=== PATIENT | female | born 1995 | race American Indian/Alaskan Native ===

== ENCOUNTER 2022-01-06 21:10 | Emergency (ER) | payer MEDICAID, SELFPAY ==
[2022-01-06 22:23] VITALS: BP 114/70; PULSE 64; RESP 16; TEMP 36.3; O2SAT 100; BMI 28.5
[2022-01-06 23:35] VITALS: BP 104/57; PULSE 62; RESP 16; O2SAT 97
--- NOTE | 2022-01-06 23:41 | ED.HA ---
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 Mode of arrival: ambulatory Limitations: no limitations History of Present Illness MD elicited complaint: headache and other (bleeding when she wipes) Onset (ago): day(s) (5) Onset description: gradually and while at rest Location: temporal, generalized and band-like Severity: mild Quality & Timing: aching and progressively worsening Exacerbating factors: none Relieving factors: nothing Context: occurred at rest Associated symptoms: other (also notes after urination - urinating more she sees blood on tissue, she is s/p BTL in [place]) Treatments prior to arrival: acetaminophen Related Data Previous Rx's Medication Instructions Recorded ibuprofen 600 mg tablet 600 mg PO Q6H PRN pain #30 tabs 01/07/22 nitrofurantoin 100 mg PO BID 7 days #14 caps 01/07/22 monohydrate/macrocrystals 100 mg capsule (Macrobid) Allergies Allergy/AdvReac Type Severity Reaction Status Date / Time No Known Allergies Allergy Verified 01/06/22 23:41 Review of Systems Review of Systems: Constitutional : No Fever, No Chills, No Fatigue ENT/Mouth : No sore throat, No Rhinorrhea Eyes: No Eye Pain, No Swelling, No Redness Cardiovascular : No Chest Pain, No SOB, No Dyspnea on Exertion Respiratory : No Cough, No Sputum Gastrointestinal : No Nausea, No Vomiting, No Diarrhea, No abdominal Pain Genitourinary : No Dysuria, pos Urinary Frequency, No Hematuria, Musculoskeletal : No joint pain, No Myalgias, No Joint Swelling Skin : No Skin Lesions, No rash Neuro : No Weakness, No Numbness, No Dizziness, positive Headache Psych : No Anxiety/Panic, No Depression Heme/Lymph: No Bruising, No Bleeding,No Lymphadenopathy Endocrine : No Polyuria, No Polydipsia All other systems reviewed and are negative [facility], [facility] Past Medical History Attestation statement: The following information was validated with the patient. Medical History Anemia Surgical History History of tubal ligation Social History Social History (Updated 01/06/22 @ 23:52 by Corry Gilmore DO) Patient Tobacco Use Status: Never used Tobacco Advance Directives: No Patient : No Physical Exam Vital Signs: Vital Signs: Last Vital Signs Temp 97.4 F 01/06/22 22:23 Pulse 62 01/06/22 23:35 Resp 16 01/06/22 23:35 BP 104/57 L 01/06/22 23:35 Pulse Ox 97 01/06/22 23:35 O2 Del Method 01/06/22 23:35 BMI result Body Mass Index 28.5 Appearance: Alert. Oriented X3. No acute distress. Eyes: Pupils equal, round and reactive to light. ENT: Pharynx normal. Neck: Normal inspection. Neck supple. full ROM CVS: Normal heart rate and rhythm. Pulses normal. Respiratory: No respiratory distress. Breath sounds normal. Abdomen: Soft and nontender. Skin: Skin warm and dry. Normal skin color. Normal skin turgor. Extremities: No lower extremity edema. No calf ttp Neuro: Oriented X 3. No motor deficit. No sensory deficit. Course Course Course Narrative: not will start on macrobid to see if this helps her urine - she has no bleeding only with wiping MDM - Headache MDM Narrative Medical decision making narrative: 26 yo female with hx of anemia, s/p tubal ligation here with c/o mild gradual onset headaches x 5 days not responding to tylenol. 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 The patient is also c/o blood when she wipes and has been peeing more frequently will obtain quant and UA sample for vs UTI, she is s/p BTL. Lab Data Result diagrams: 01/07/22 00:44 01/07/22 00:44 Labs: Lab Results 01/07/22 01/07/22 01/07/22 Range/Units 00:44 00:44 01:24 WBC 8.1 (4.8-10.8) X10*3/uL RBC 3.90 L (4.20-5.50) X10*6/uL Hgb 11.2 L (12.0-16.0) g/dl Hct 34.4 L (37.0-47.0) % MCV 88.2 (80.0-98.0) fL MCH 28.7 (27.0-33.0) pg MCHC 32.6 (31.0-35.0) g/dl RDW 13.3 (11.0-16.0) % Plt Count 242 (160-400) X10*3/uL MPV 10.3 (9.4-12.3) fL Immature Gran % (Auto) 0.5 H (0.0-0.4) % Neut % (Auto) 49.1 (45-73) % Lymph % (Auto) 40.9 H (20-40) % [place] % (Auto) 7.7 (2-11) % Eos % (Auto) 1.4 (0-4) % Baso % (Auto) 0.4 (0-2) % Lymph # (Auto) 3.3 (1.2-4.9) X10*3/uL [place] # (Auto) 0.6 (0.1-1.2) X10*3/uL Eos # (Auto) 0.1 (0.0-0.4) X10*3/uL Baso # (Auto) 0.0 (0.0-0.2) X10*3/uL Abs Immat Gran (auto) 0.04 H (0.00-0.03) X10*3/uL Absolute Neuts (auto) 4.0 (2.0-8.3) x10*3/uL Absolute Nucleated RBC 0.000 (0.0-0.012) X10*3/uL Nucleated RBC % (auto) 0.0 (0.0-0.2) /100WBC Sodium 142 (135-145) mmol/L Potassium 4.2 (3.3-5.1) mmol/L Chloride 105 (96-108) mmol/L Carbon Dioxide 26 (22-29) mmol/L Anion Gap 15 (12-20) BUN 18 H (9-16) mg/dL Creatinine 0.78 (0.5-1.4) mg/dL Estim Creat Clear Calc 98.9 Estimated GFR > 60 Random Glucose 102 (60-115) mg/dL Calcium 9.3 (8.4-10.2) mg/dL Beta HCG, Quant < 2 mIU/mL Urine Color Yellow Urine Appearance Clear Urine pH 5.5 (5.0-8.0) Ur Specific [place] 1.025 (1.005-1.025) Urine Protein Negative (Neg-Trace) mg/dL Urine Glucose (UA) Negative (Negative) mg/dL Urine Ketones Negative (Negative) mg/dL Urine Blood Large (3+) H (Negative) Urine Nitrite Negative (Negative) Ur Leukocyte Esterase Negative (Negative) Urine RBC 0-2 (0-2) /HPF Urine WBC 0-5 (0-5) /HPF Ur Squamous Epith Cells 11-20 (0-2) /HPF Urine Bacteria 2+ (None Seen) Hyaline Casts 0-2 (0-2) /LPF Discharge Plan Discharge Clinical Impression: Tension headache, Cystitis Instructions: Urinary Tract Infection in Women (ED), Acute Headache (ED) Additional Instructions: return to ED for any worsening symptoms or concerns Prescriptions: New ibuprofen 600 mg tablet 600 mg PO Q6H PRN (Reason: pain) Qty: 30 0RF nitrofurantoin monohyd/m-cryst [Macrobid] 100 mg capsule 100 mg PO BID 7 Days Qty: 14 0RF Rx Instructions: must administer with a meal/food Stand Alone Forms: Work/School Release Print Language: St Helen[place]
[2022-01-07 00:47] LABS: MANUAL DIFF FLAG NO
[2022-01-07 00:51] LABS: Basophils Percent Auto 0.4 % (0-2); Eosinophils Absolute Auto 0.1 X10*3/uL (0.0-0.4); Eosinophils Percent Auto 1.4 % (0-4); Hematocrit 34.4 % (37.0-47.0); Hemoglobin 11.2 g/dl (12.0-16.0); Imm Gran Abs Auto 0.04 X10*3/uL (0.00-0.03); Imm Gran Pct Auto 0.5 % (0.0-0.4); Lymphocytes Absolute Auto 3.3 X10*3/uL (1.2-4.9); Lymphocytes Percent Auto 40.9 % (20-40); Mean Corpuscular HGB Conc 32.6 g/dl (31.0-35.0); Mean Corpuscular Hemoglobin 28.7 pg (27.0-33.0); Mean Corpuscular Volume 88.2 fL (80.0-98.0); Mean Platelet Volume 10.3 fL (9.4-12.3); Monocytes Absolute Auto 0.6 X10*3/uL (0.1-1.2); Monocytes Percent Auto 7.7 % (2-11); Neutrophils Percent Auto 49.1 % (45-73); Platelet Count 242 X10*3/uL (160-400); Red Cell Distribution Width 13.3 % (11.0-16.0); White Blood Count 8.1 X10*3/uL (4.8-10.8)
[2022-01-07 01:07] LABS: Anion Gap 15 (12-20); Blood Urea Nitrogen 18 mg/dL (9-16); Calcium 9.3 mg/dL (8.4-10.2); Carbon Dioxide 26 mmol/L (22-29); Chloride 105 mmol/L (96-108); Creatinine Clr Calc Pharmacy 98.9; Estimated Glomerular Filt Rate > 60; Glucose Random 102 mg/dL (60-115); Potassium 4.2 mmol/L (3.3-5.1); Sodium 142 mmol/L (135-145)
[2022-01-07 01:15] LABS: HCG Quantitative < 2 mIU/mL
[2022-01-07 01:32] LABS: Appearance Urine Clear; Color Urine Yellow; Glucose Urine UA Negative (Negative); Leukocyte Esterase Urine Negative (Negative); Nitrite Urine Negative (Negative); PH 5.5 (5.0-8.0); Specific Gravity - Urine 1.025 (1.005-1.025); Urine Blood Large (3+) (Negative); Urine Ketones Negative (Negative); Urine Protein Negative (Neg-Trace)
[2022-01-07 01:42] LABS: Bacteria Urine 2+ (None Seen); Hyaline Casts Urine 0-2 /LPF (0-2); RBC Urine 0-2 /HPF (0-2); WBC Urine 0-5 /HPF (0-5)
[2022-01-07] MEDS: Ketorolac Tromethamine 30 MG/ML VIAL IM (01:42)
--- NOTE | 2022-01-07 01:43 | PC.NURSE ---
pt a&ox3, vss, medicated per provider order. no new orders at this time.
== END 2022-01-07 02:05 | disposition home or self-care (01) ==
PROVIDERS: Emergency Provider Emergency Medicine
DX: N30.90 Cystitis, unspecified without hematuria (principal); R51.9 Headache, unspecified; Z79.899 Other long term (current) drug therapy
CPT/HCPCS: 36415; 80048; 81001; 84702; 85025; 96372; 99284; J1885

== ENCOUNTER 2022-06-12 01:40 | Emergency (ER) | payer MEDICAID, SELFPAY ==
[2022-06-12 01:49] VITALS: BP 119/77; PULSE 117; RESP 20; TEMP 36.7; O2SAT 99; BMI 29.6
[2022-06-12 02:24] LABS: Basophils Percent Auto 0.2 % (0-2); Eosinophils Percent Auto 0.1 % (0-4); Hematocrit 35.6 % (37.0-47.0); Hemoglobin 11.8 g/dl (12.0-16.0); Imm Gran Abs Auto 0.06 X10*3/uL (0.00-0.03); Imm Gran Pct Auto 0.4 % (0.0-0.4); Lymphocytes Absolute Auto 0.4 X10*3/uL (1.2-4.9); Lymphocytes Percent Auto 2.9 % (20-40); MANUAL DIFF FLAG SCAN; Mean Corpuscular HGB Conc 33.1 g/dl (31.0-35.0); Mean Corpuscular Hemoglobin 28.7 pg (27.0-33.0); Mean Corpuscular Volume 86.6 fL (80.0-98.0); Mean Platelet Volume 9.7 fL (9.4-12.3); Monocytes Absolute Auto 0.4 X10*3/uL (0.1-1.2); Monocytes Percent Auto 2.5 % (2-11); Neutrophils Absolute Auto 13.4 x10*3/uL (2.0-8.3); Neutrophils Percent Auto 93.9 % (45-73); Platelet Count 300 X10*3/uL (160-400); Red Blood Count 4.11 X10*6/uL (4.20-5.50); Red Cell Distribution Width 12.7 % (11.0-16.0); SCAN SMEAR FLAG 1; White Blood Count 14.3 X10*3/uL (4.8-10.8)
[2022-06-12 02:25] LABS: Appearance Urine Clear; Color Urine Yellow; Glucose Urine UA Negative (Negative); Leukocyte Esterase Urine Negative (Negative); Nitrite Urine Negative (Negative); PH 8.5 (5.0-9.0); Specific Gravity - Urine >= 1.030 (1.005-1.025); UMIC TRIGGER UACC YES; Urine Blood Trace (Negative); Urine Ketones Negative (Negative); Urine Protein Trace mg/dL (Neg-Trace)
[2022-06-12 02:26] LABS: SLIDE REVIEW VERIFIED
[2022-06-12 02:27] LABS: UPreg QC Valid YES; Urine Pregnancy NEGATIVE (NEGATIVE)
[2022-06-12 02:30] LABS: Bacteria Urine None Seen (None Seen); Hyaline Casts Urine 0-2 /LPF (0-2); WBC Urine 0-5 /HPF (0-5)
[2022-06-12 02:40] LABS: Anion Gap 16 (12-20); Blood Urea Nitrogen 18 mg/dL (9-16); Calcium 9.2 mg/dL (8.4-10.2); Carbon Dioxide 21 mmol/L (22-29); Chloride 106 mmol/L (96-108); Creatinine Clr Calc Pharmacy 89.5; Estimated Glomerular Filt Rate > 60; Glucose Random 130 mg/dL (60-115); Potassium 4.1 mmol/L (3.3-5.1); Sodium 139 mmol/L (135-145)
[2022-06-12 03:06] LABS: Influenza A PCR NEGATIVE (Negative); Influenza B PCR NEGATIVE (Negative); Resp Syncy Virus RNA Qual PCR NEGATIVE (Negative); SARS COV2 PCR INHOUSE NEGATIVE (Negative)
[2022-06-12 03:09] VITALS: BP 112/70; PULSE 108; RESP 18; TEMP 37.4; O2SAT 97
[2022-06-12 04:16] VITALS: BP 115/72; PULSE 102; RESP 18; TEMP 37.4; O2SAT 96
--- NOTE | 2022-06-12 04:39 | ED_ITS ---
HPI - General Adult General Chief complaint: General Medical Stated complaint: N/V/D Time Seen by Provider: 06/12/22 04:09 Source: patient Mode of arrival: ambulatory Limitations: no limitations History of Present Illness HPI narrative: Patient been having nausea/vomiting/diarrhea since 20:00 last night with diffuse abdominal cramping clear vomiting over about 20 times same number of diarrhea no fever no chills no other family member sick denies any recent travel or sea food intake no fever or chills Related Data Previous Rx's Medication Instructions Recorded ibuprofen 600 mg tablet 600 mg PO Q6H PRN pain #30 tabs 01/07/22 nitrofurantoin 100 mg PO BID 7 days #14 caps 01/07/22 monohydrate/macrocrystals 100 mg capsule (Macrobid) loperamide 2 mg tablet (Imodium 2 mg PO Q6H PRN loose stool #10 06/12/22 A-D) tabs ondansetron 4 mg disintegrating 4 mg PO Q6-8H PRN nausea and 06/12/22 tablet vomiting #7 tabs Allergies Allergy/AdvReac Type Severity Reaction Status Date / Time No Known Allergies Allergy Verified 01/06/22 23:41 Review of Systems 2 Review of Systems: Yes all other systems are reviewed and are negative PMFSH Past Medical History Medical History Anemia Surgical History History of tubal ligation Social History Social History Alcohol intake: never Patient Tobacco Use Status: Never used Tobacco Smoked in Last 30 Days: No Use of substances other than those prescribed or required for medical reasons: No Advance Directives: No Advance Directives Information Provided: Yes Patient : No Physical Exam ED Vital Signs: Vital Signs - 24 hr 06/12/22 01:49 06/12/22 03:09 06/12/22 04:16 Temperature 98.1 F 99.4 F 99.3 F Pulse Rate 117 H 108 H 102 H Respiratory Rate 20 18 18 Blood Pressure 119/77 112/70 115/72 Pulse Oximetry 99 97 96 Oxygen Delivery Method Room Air Room Air Room Air 06/12/22 06:14 Temperature 98.7 F Pulse Rate 102 H Respiratory Rate 18 Blood Pressure 103/57 L Pulse Oximetry 99 Oxygen Delivery Method Room Air BMI result Body Mass Index 29.6 Appearance: Alert. Oriented X3. No acute distress. Eyes: No pallor or icterus ENT: Pharynx normal. Oral Mucosa moist Neck: Normal inspection. Neck supple. CVS: Normal heart rate and rhythm. Pulses normal. Respiratory: No respiratory distress. Equal air entry bilateral, no wheezing/rales/rhonchi Abdomen: Soft , diffuse tenderness no rebound tenderness or guarding Bowel sounds are present, no mass palpable, no CVA tenderness Skin: Skin warm and dry. Normal skin color. Normal skin turgor. Extremities: No lower extremity edema. No calf tenderness Neuro: Oriented X 3. No motor deficit. Medications Administered Discontinued Medications Generic Name Dose Route Start Last Admin Trade Name Freq PRN Reason Stop Dose Admin Sodium Chloride 1,000 mls @ 999 mls/hr 06/12/22 04:55 06/12/22 05:16 Ns IV 06/12/22 05:55 999 mls/hr .Q1H1M ONE Administration Sodium Chloride 1,000 mls @ 999 mls/hr 06/12/22 04:56 06/12/22 05:16 Ns IV 06/12/22 05:56 999 mls/hr .Q1H1M ONE Administration Ketorolac Tromethamine 30 mg 06/12/22 04:55 06/12/22 05:16 Ketorolac Tromethamine 30 Mg/Ml Vial IVPUSH 06/12/22 04:56 30 mg ONCE ONE Administration Loperamide HCl 2 mg 06/12/22 04:55 06/12/22 05:15 Loperamide Hcl 2 Mg Capsule PO 06/12/22 04:56 2 mg ONCE ONE Administration Ondansetron HCl 4 mg 06/12/22 04:55 06/12/22 05:16 Ondansetron Hcl 4 Mg/2 Ml Vial IVPUSH 06/12/22 04:56 4 mg ONCE ONE Administration Medical Decision Making Medical Decision Making [facility] Narrative: Patient with acute gastroenteritis likely viral will give IV fluids symptomatic treatment abdomen without any focal tenderness. Lab Data [facility] Lab Attestation statement: I reviewed the patient's lab results. 06/12/22 02:16 06/12/22 02:16 Labs: Lab Results 01/06/12/22 06/12/22 Range/Units 02:14 02:14 02:14 WBC (4.8-10.8) X10*3/uL RBC (4.20-5.50) X10*6/uL Hgb (12.0-16.0) g/dl Hct (37.0-47.0) % MCV (80.0-98.0) fL MCH (27.0-33.0) pg MCHC (31.0-35.0) g/dl RDW (11.0-16.0) % Plt Count (160-400) X10*3/uL MPV (9.4-12.3) fL Immature Gran % (Auto) (0.0-0.4) % Neut % (Auto) (45-73) % Lymph % (Auto) (20-40) % [place] % (Auto) (2-11) % Eos % (Auto) (0-4) % Baso % (Auto) (0-2) % Lymph # (Auto) (1.2-4.9) X10*3/uL [place] # (Auto) (0.1-1.2) X10*3/uL Eos # (Auto) (0.0-0.4) X10*3/uL Baso # (Auto) (0.0-0.2) X10*3/uL Abs Immat Gran (auto) (0.00-0.03) X10*3/uL Absolute Neuts (auto) (2.0-8.3) x10*3/uL Absolute Nucleated RBC (0.0-0.012) X10*3/uL Nucleated RBC % (auto) (0.0-0.2) /100WBC Smear Tech's Comments Sodium (135-145) mmol/L Potassium (3.3-5.1) mmol/L Chloride (96-108) mmol/L Carbon Dioxide (22-29) mmol/L Anion Gap (12-20) BUN (9-16) mg/dL Creatinine (0.5-1.4) mg/dL Estim Creat Clear Calc Estimated GFR Random Glucose (60-115) mg/dL Calcium (8.4-10.2) mg/dL Urine Color Yellow Urine Appearance Clear Urine pH 8.5 (5.0-9.0) Ur Specific [place] >= 1.030 H (1.005-1.025) Urine Protein Trace (Neg-Trace) mg/dL Urine Glucose (UA) Negative (Negative) mg/dL Urine Ketones Negative (Negative) mg/dL Urine Blood Trace H (Negative) Urine Nitrite Negative (Negative) Ur Leukocyte Esterase Negative (Negative) Urine RBC 6-10 H (0-2) /HPF Urine WBC 0-5 (0-5) /HPF Ur Squamous Epith Cells 3-5 (0-2) /HPF Urine Bacteria None Seen (None Seen) Hyaline Casts 0-2 (0-2) /LPF Urine Test NEGATIVE (NEGATIVE) Influenza Type A (PCR) NEGATIVE (Negative) Influenza Type B (PCR) NEGATIVE (Negative) RSV RNA Qual (PCR) NEGATIVE (Negative) SARS-CoV-2 RNA (RT-PCR) NEGATIVE (Negative) 06/12/22 06/12/22 Range/Units 02:16 02:16 WBC 14.3 H (4.8-10.8) X10*3/uL RBC 4.11 L (4.20-5.50) X10*6/uL Hgb 11.8 L (12.0-16.0) g/dl Hct 35.6 L (37.0-47.0) % MCV 86.6 (80.0-98.0) fL MCH 28.7 (27.0-33.0) pg MCHC 33.1 (31.0-35.0) g/dl RDW 12.7 (11.0-16.0) % Plt Count 300 (160-400) X10*3/uL MPV 9.7 (9.4-12.3) fL Immature Gran % (Auto) 0.4 (0.0-0.4) % Neut % (Auto) 93.9 H (45-73) % Lymph % (Auto) 2.9 L (20-40) % [place] % (Auto) 2.5 (2-11) % Eos % (Auto) 0.1 (0-4) % Baso % (Auto) 0.2 (0-2) % Lymph # (Auto) 0.4 L (1.2-4.9) X10*3/uL [place] # (Auto) 0.4 (0.1-1.2) X10*3/uL Eos # (Auto) 0.0 (0.0-0.4) X10*3/uL Baso # (Auto) 0.0 (0.0-0.2) X10*3/uL Abs Immat Gran (auto) 0.06 H (0.00-0.03) X10*3/uL Absolute Neuts (auto) 13.4 H (2.0-8.3) x10*3/uL Absolute Nucleated RBC 0.000 (0.0-0.012) X10*3/uL Nucleated RBC % (auto) 0.0 (0.0-0.2) /100WBC Smear Tech's Comments VERIFIED Sodium 139 (135-145) mmol/L Potassium 4.1 (3.3-5.1) mmol/L Chloride 106 (96-108) mmol/L Carbon Dioxide 21 L (22-29) mmol/L Anion Gap 16 (12-20) BUN 18 H (9-16) mg/dL Creatinine 0.87 (0.5-1.4) mg/dL Estim Creat Clear Calc 89.5 Estimated GFR > 60 Random Glucose 130 H (60-115) mg/dL Calcium 9.2 (8.4-10.2) mg/dL Urine Color Urine Appearance Urine pH (5.0-9.0) Ur Specific [place] (1.005-1.025) Urine Protein (Neg-Trace) mg/dL Urine Glucose (UA) (Negative) mg/dL Urine Ketones (Negative) mg/dL Urine Blood (Negative) Urine Nitrite (Negative) Ur Leukocyte Esterase (Negative) Urine RBC (0-2) /HPF Urine WBC (0-5) /HPF Ur Squamous Epith Cells (0-2) /HPF Urine Bacteria (None Seen) Hyaline Casts (0-2) /LPF Urine Test (NEGATIVE) Influenza Type A (PCR) (Negative) Influenza Type B (PCR) (Negative) RSV RNA Qual (PCR) (Negative) SARS-CoV-2 RNA (RT-PCR) (Negative) Discharge Plan Discharge Clinical Impression: Acute gastroenteritis Patient Disposition: Home, Self-Care Instructions: Gastroenteritis (ED) Additional Instructions: Drink plenty of fluids Zofran for nausea as prescribed Imodium for severe diarrhea Report to the ER/with a PA of not better Beber mucho l?quido Zofran para las n?useas seg?n lo prescrito Imodium para la diarrea severa Informar a urgencias/con PA de no mejor Prescriptions: New ondansetron 4 mg tablet,disintegrating 4 mg PO Q6-8H PRN (Reason: nausea and vomiting) Qty: 7 0RF loperamide [Imodium A-D] 2 mg tablet 2 mg PO Q6H PRN (Reason: loose stool) Qty: 10 0RF No Action ibuprofen 600 mg tablet 600 mg PO Q6H PRN (Reason: pain) Qty: 30 0RF nitrofurantoin monohyd/m-cryst [Macrobid] 100 mg capsule 100 mg PO BID 7 Days Qty: 14 0RF Rx Instructions: must administer with a meal/food Stand Alone Forms: Work/School Release Print Language: Malagasy
[2022-06-12] MEDS: Loperamide HCl 2 MG CAPSULE PO (05:15)
[2022-06-12] MEDS: 0.9 % Sodium Chloride 1,000 ML 999 ML IV ×2 (05:16)
[2022-06-12] MEDS: ondansetron HCL 4 MG/2 ML VIAL IVPUSH (05:16)
[2022-06-12] MEDS: Ketorolac Tromethamine 30 MG/ML VIAL IVPUSH (05:16)
--- NOTE | 2022-06-12 05:29 | PC.NURSE ---
Pt BARBA x 4. Pt was medicated per mar. Will continue to monitor.
[2022-06-12 06:14] VITALS: BP 103/57; PULSE 102; RESP 18; TEMP 37.1; O2SAT 99
== END 2022-06-12 06:49 | disposition home or self-care (01) ==
PROVIDERS: Emergency Provider Internal Medicine
DX: K52.9 Noninfective gastroenteritis and colitis, unspecified (principal); R11.2 Nausea with vomiting, unspecified; Z20.822 Contact with and (suspected) exposure to COVID-19; Z20.828 Contact with and (suspected) exposure to other viral communicable diseases
CPT/HCPCS: 0241U; 36415; 80048; 81001; 81025; 85025; 96361; 96374; 96375; 99284; J1885; J2405

== ENCOUNTER 2022-06-26 08:05 | Emergency (ER) | payer OTHER, MEDICAID, SELFPAY ==
[2022-06-26 08:09] VITALS: BP 140/90; PULSE 73; RESP 18; TEMP 36.2; O2SAT 100; BMI 18.3
--- NOTE | 2022-06-26 08:20 | ED.WOUNDLAC ---
HPI - Wound/Laceration General Chief Complaint: Wound/Laceration Stated Complaint: finger inj work inj Time Seen by Provider: 06/26/22 08:19 Source: patient Mode of arrival: ambulatory History of Present Illness HPI narrative: 27-year-old female with past medical history of anemia presenting to ED complaining of laceration to left index finger s/p cutting bread at work [employer]. Last tetanus unknown. Reports associated numbness/paresthesias. Denies injury to other area, crush injury, fever/chills. Onset (ago): minute(s) Related Data Previous Rx's Medication Instructions Recorded ibuprofen 600 mg tablet 600 mg PO Q6H PRN pain #30 tabs 01/07/22 nitrofurantoin 100 mg PO BID 7 days #14 caps 01/07/22 monohydrate/macrocrystals 100 mg capsule (Macrobid) loperamide 2 mg tablet (Imodium 2 mg PO Q6H PRN loose stool #10 06/12/22 A-D) tabs ondansetron 4 mg disintegrating 4 mg PO Q6-8H PRN nausea and 06/12/22 tablet vomiting #7 tabs Allergies Allergy/AdvReac Type Severity Reaction Status Date / Time No Known Allergies Allergy Verified 01/06/22 23:41 Review of Systems Review of Systems: Constitutional: No Fever, No Chills ENT/Mouth: No Ear Pain, No Nasal Congestion, No sore throat, No Rhinorrhea, No Swallowing Difficulty Cardiovascular: No Chest Pain, No SOB Respiratory: No Cough Gastrointestinal: No Nausea, No Vomiting, No Diarrhea, No Constipation, No Abdominal pain Musculoskeletal: No joint pain, No Myalgias, No Joint Swelling Skin: + Skin Lesions, No rash Neuro: No Weakness, No Numbness, + Paresthesias Yes all other systems are reviewed and are negative Constitutional: Constitutional: Reports as per HPI Neurologic: Denies Sensory deficit (Neuro) [facility] Past Medical History Attestation statement: The following information was validated with the patient. Medical History Anemia Surgical History History of tubal ligation Social History Social History Alcohol intake: never Patient Tobacco Use Status: Never used Tobacco Smoked in Last 30 Days: No Use of substances other than those prescribed or required for medical reasons: No Advance Directives: No Patient : No Physical Exam Vital Signs: Vital Signs: Last Vital Signs Temp 97.1 F 06/26/22 08:09 Pulse 73 06/26/22 08:09 Resp 18 06/26/22 08:09 BP 140/90 H 06/26/22 08:09 Pulse Ox 100 06/26/22 08:09 O2 Del Method 06/26/22 08:09 BMI result Body Mass Index 18.3 Const: General: cooperative, healthy appearing and no acute distress Orientation/consciousness: patient oriented x3 Limitations: no limitations HEENT: Head: Yes normal to inspection and Yes atraumatic Ears: hearing grossly normal bilaterally General nose exam: Normal external nose present Face and sinus: Yes normal facial exam Eyes: General: appearance normal, both eyes and all related structures EOM: EOMs intact bilaterally Neck: Neck: Yes normal visual inspection and Yes no meningeal signs Resp: Effort & Inspection: normal respiratory effort and no respiratory distress Cardio: Rate: regular rate Heart sounds: S1 normal heart sound present and S2 normal heart sound present Peripheral pulses: radial pulses present and ulnar radial pulses present Skin: Other: + 1 cm superficial laceration noted to left index finger radial aspect just distal to DIP. FROM and NV intact. Rashes: no rashes Neuro: General: patient oriented x3, tone normal and no meningeal signs Gait exam (Neuro): Normal gait present Sensory Exam: No Sensory deficit (Neuro) Extrem: General: Yes normal to inspection Medications Administered Discontinued Medications Generic Name Dose Route Start Last Admin Trade Name Lewis PRN Reason Stop Dose Admin Bacitracin 1 appl 06/26/22 09:46 06/26/22 10:08 Bacitracin Oint 14 Gm Tube TOPICAL 06/26/22 09:47 1 appl ONCE ONE Administration Protocol Diphtheria/Tetanus/Acell Pertussis 0.5 ml 06/26/22 08:41 06/26/22 08:49 Diphth,Pertus(Acell),Tet Adult 0.5 Ml Syringe IM 06/26/22 08:42 0.5 ml .ONCE ONE Administration Lidocaine HCl 5 ml 06/26/22 08:41 06/26/22 08:49 Lidocaine Hcl 1 % Mpf 5 Ml Vial INFILTRATI 06/26/22 08:42 5 ml ONCE ONE Administration Medical Decision Making Medical Decision Making MDM Narrative: 27-year-old female with past medical history of anemia presenting to ED complaining of laceration to left index finger s/p cutting bread at work [employer]. On exam vital signs stable, NAD, nontoxic appearing, physical exam as noted above. Superficial laceration which will need repair. Will update patient's tetanus. Low suspicion for tendon/ligamental rupture, fracture or dislocation Plan: Repair wound, update tetanus Results discussed with patient including worrisome signs and symptoms and strict return precautions, and when to return to the emergency department. They verbalized understanding and feel safe for discharge at this time. Differential Diagnosis Differential Diagnoses: The differential diagnosis associated with the presentation includes As above Prescription Management I considered prescription management with: Pain Medication and Antibiotic Procedures Laceration Laceration 1: Site: hand Side (If applicable): left Size (cm): 1 Description: linear Depth: simple, single layer Local Anesthetic: lidocaine 1% Amount of anesthesia used (mL): 2 Pre-repair: wound explored Skin layer closed with: nylon Size (cm): 5-0 Number of sutures: 3 Technique: simple, interrupted Discharge Plan Discharge Clinical Impression: Laceration Patient Disposition: Home, Self-Care Instructions: Finger Laceration (ED) Additional Instructions: Your wounds were repaired today in the emergency department. Keep dry and clean. You need to return to any emergency department, urgent care, or your PCPs office in 7-10 days for suture removal Apply bacitracin and or Neosporin daily Once sutures are removed apply anti scar cream like Mederma If area begins look infected, is red, there is drainage, streaking, or you have fever please return to the emergency department Prescriptions: No Action ondansetron 4 mg tablet,disintegrating 4 mg PO Q6-8H PRN (Reason: nausea and vomiting) Qty: 7 0RF loperamide [Imodium A-D] 2 mg tablet 2 mg PO Q6H PRN (Reason: loose stool) Qty: 10 0RF ibuprofen 600 mg tablet 600 mg PO Q6H PRN (Reason: pain) Qty: 30 0RF nitrofurantoin monohyd/m-cryst [Macrobid] 100 mg capsule 100 mg PO BID 7 Days Qty: 14 0RF Rx Instructions: must administer with a meal/food Referrals: [facility] [Primary Care Provider] - 1 week (For suture removal) Stand Alone Forms: Work/School Release Interventions: ED Discharge Assessment Last Done: 06/26/22 10:10 Discharge Date/Time: 06/26/22 10:12
[2022-06-26] MEDS: Lidocaine HCl 1 % MPF 5 ML VIAL INFILTRATI (08:49)
[2022-06-26] MEDS: Diphth,Pertus(ACell),Tet Adult 0.5 ML SYRINGE IM (08:49)
--- NOTE | 2022-06-26 10:02 | MHC.EDTECH ---
PCT applied a dressing to left index finger to cover stitches,applied a&d ointment and wrapped with gauze.
[2022-06-26] MEDS: Bacitracin Oint 14 GM TUBE 1 APPL TOPICAL (10:08)
--- NOTE | 2022-06-26 10:11 | PC.NURSE ---
pt not at bedside, d/c paper mailed to pt address on file.
== END 2022-06-26 10:12 | disposition home or self-care (01) ==
PROVIDERS: Emergency Provider Emergency Medicine
DX: S61.211A Laceration without foreign body of left index finger without damage to nail, initial encounter (principal); W26.0XXA Contact with knife, initial encounter; Y93.G1 Activity, food preparation and clean up; Y92.213 High school as the place of occurrence of the external cause; Y99.0 Civilian activity done for income or pay
CPT/HCPCS: 12001; 90471; 90715; 99283; 99284

== ENCOUNTER 2022-10-15 15:02 | Outpatient (REF) | payer MEDICAID, SELFPAY ==
[2022-10-15 18:46] LABS: CT PCR NOT DETECTED (Not Detect.); NG PCR NOT DETECTED (Not Detect.)
== END 2022-10-15 15:03 | disposition home or self-care (01) ==
LOC: HO.LNP 15:02
PROVIDERS: Visit Provider Obstetrics & Gynecology
DX: Z12.4 Encounter for screening for malignant neoplasm of cervix (principal); N93.9 Abnormal uterine and vaginal bleeding, unspecified; R10.2 Pelvic and perineal pain
CPT/HCPCS: 0353U; 81025; 88142; 99202

== ENCOUNTER 2022-10-31 12:56 | Outpatient (REF) | payer MEDICAID, SELFPAY ==
--- NOTE | ~2022-10-31 | US_ITS ---
EXAMINATION: US PELVIS COMPLETE CLINICAL INFORMATION: Pelvic pain COMPARISON: None TECHNIQUE: Transabdominal and transvaginal imaging was performed. FINDINGS: The uterus is of normal size and echogenicity measuring 8.6 x 4.4 x 6.1 cm. A regular homogeneous endometrium is identified measuring 1.4 cm. section scar in the anterior lower uterine segment. Trace fluid in the endocervical canal. Both ovaries are of normal size and echogenicity. The right measures 3.3 x 2.2 x 2.0 cm for a volume of 7.6 mL. The left measures 3.1 x 2.2 x 2.7 cm for a volume of 9.6 mL, and is remarkable for a 2.2 cm dominant follicle, no follow-up imaging recommended. There is no pelvic free fluid. US/US pelvic and transvaginal IMPRESSION: 1. Trace fluid in the endocervical canal. 2. section scar in the anterior lower uterine segment. 3. Unremarkable sonographic appearance of the ovaries.
== END 2022-10-31 12:57 | disposition home or self-care (01) ==
LOC: HO.US 12:56
PROVIDERS: Visit Provider Obstetrics & Gynecology
DX: R10.2 Pelvic and perineal pain (principal)
CPT/HCPCS: 76830; 76856

== ENCOUNTER 2022-11-06 14:41 | Outpatient (REF) | payer MEDICAID, SELFPAY ==
[2022-11-06 16:43] LABS: Hematocrit 34.7 % (37.0-47.0); Hemoglobin 11.1 g/dl (12.0-16.0); Mean Corpuscular Volume 87.6 fL (80.0-98.0); Mean Platelet Volume 10.4 fL (9.4-12.3); Platelet Count 298 X10*3/uL (160-400); Red Blood Count 3.96 X10*6/uL (4.20-5.50); Red Cell Distribution Width 13.4 % (11.0-16.0); White Blood Count 10.7 X10*3/uL (4.8-10.8)
[2022-11-06 17:22] LABS: TSH reflex Free T4 0.61 uIU/mL (0.32-4.0)
[2022-11-08 07:29] LABS: Prolactin 11.7 ng/mL
== END 2022-11-06 14:42 | disposition home or self-care (01) ==
LOC: HO.LAB 14:41
PROVIDERS: PCP Registered Nurse; Visit Provider Obstetrics & Gynecology
DX: R10.2 Pelvic and perineal pain (principal); N93.9 Abnormal uterine and vaginal bleeding, unspecified
CPT/HCPCS: 36415; 81003; 84146; 84443; 85027; 99212

== ENCOUNTER 2022-12-20 09:54 | Outpatient (REF) | payer MEDICAID, SELFPAY ==
[2022-12-20 11:25] LABS: MANUAL DIFF FLAG NO
[2022-12-20 11:43] LABS: Basophils Percent Auto 0.5 % (0-2); Eosinophils Absolute Auto 0.1 X10*3/uL (0.0-0.4); Eosinophils Percent Auto 1.4 % (0-4); Hematocrit 36.1 % (37.0-47.0); Hemoglobin 11.4 g/dl (12.0-16.0); Imm Gran Abs Auto 0.03 X10*3/uL (0.00-0.03); Imm Gran Pct Auto 0.4 % (0.0-0.4); Lymphocytes Absolute Auto 2.1 X10*3/uL (1.2-4.9); Lymphocytes Percent Auto 25.2 % (20-40); Mean Corpuscular HGB Conc 31.6 g/dl (31.0-35.0); Mean Corpuscular Hemoglobin 28.3 pg (27.0-33.0); Mean Corpuscular Volume 89.6 fL (80.0-98.0); Mean Platelet Volume 10.5 fL (9.4-12.3); Monocytes Absolute Auto 0.6 X10*3/uL (0.1-1.2); Monocytes Percent Auto 6.7 % (2-11); Neutrophils Absolute Auto 5.6 x10*3/uL (2.0-8.3); Neutrophils Percent Auto 65.8 % (45-73); Platelet Count 315 X10*3/uL (160-400); Red Blood Count 4.03 X10*6/uL (4.20-5.50); Red Cell Distribution Width 12.7 % (11.0-16.0); White Blood Count 8.5 X10*3/uL (4.8-10.8)
[2022-12-20 12:54] LABS: CT PCR NOT DETECTED (Not Detect.); NG PCR NOT DETECTED (Not Detect.)
[2022-12-20 15:12] LABS: Cholesterol 183 mg/dL; HDL Cholesterol 40 mg/dL; Iron 60 mcg/dL (30-160); LDL Cholesterol Calculated 117 mg/dl; Percent Iron Saturation 20 % (15-50); Total Iron Binding Capacity 304 mcg/dL (228-428); Triglycerides 130 mg/dL; Unsaturated Iron Binding 244 ug/dL
[2022-12-20 15:31] LABS: Ferritin 22 ng/mL (10-122)
[2022-12-21 04:03] LABS: Syphilis Screen Nonreactive (Nonreactive)
== END 2022-12-20 09:55 | disposition home or self-care (01) ==
LOC: HO.HHCL 09:54
PROVIDERS: Visit Provider Student in an Organized Health Care Education/Training Program
DX: Z00.00 Encounter for general adult medical examination without abnormal findings (principal); D64.9 Anemia, unspecified
CPT/HCPCS: 0353U; 80061; 82728; 83540; 85025; 86780

== ENCOUNTER 2023-02-06 15:33 | Outpatient (AMB) | payer MEDICAID, SELFPAY ==
[2023-02-06 15:58] VITALS: BP 114/66; BMI 34.2
--- NOTE | 2023-02-06 15:58 | A.OFFVIS_ITS ---
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 The patient was confused about how and when to take her Provera took Provera for 10 days in November had a period in December and and has been amenorrheic. [facility] Medical History Anemia Surgical History History of tubal ligation Social History Alcohol intake: never Patient Tobacco Use Status: Never used Tobacco Female Reproductive History Menstrual control method: permanent sterilization Date of last pap smear: 10/16/22 (negative) Physical Exam Vital Signs: Last Vital Signs BP 114/66 02/06/23 15:58 BMI result Body Mass Index 34.2 Assessment & Plan Assessment & Plan (1) Abnormal uterine bleeding: Code(s): N93.9 - Abnormal uterine and vaginal bleeding, unspecified Plan: Urine test done in the office was negative. Instructed the patient to take Provera 10 mg p.o. q.d. day 15-24 for 3 months and to schedule a follow-up appointment in 3 months. All questions answered, the patient verbalized understanding and agreed with the plan. Medications: Refilled medroxyprogesterone (Provera) start Provera 1 tablet daily from day 15-24 cyclically every months, day 1 being 1st day of menses 10 mg PO DAILY 10 days 30 tabs 0RF Coding Level of Care Code Est Pt Level 3 (31950) Diagnoses Abnormal uterine bleeding N93.9
== END 2023-02-06 16:13 | disposition home or self-care (01) ==
PROVIDERS: Visit Provider Obstetrics & Gynecology
DX: N93.9 Abnormal uterine and vaginal bleeding, unspecified (principal)
CPT/HCPCS: 99213

== ENCOUNTER → 2023-02-06 15:33 | Outpatient (BNVA) | payer MEDICAID, SELFPAY | PROVIDERS: Visit Provider Obstetrics & Gynecology | DX: N93.9 Abnormal uterine and vaginal bleeding, unspecified (principal) | CPT/HCPCS: 99212 ==

== ENCOUNTER 2023-04-07 07:03 | Emergency (ER) | payer MEDICAID, SELFPAY ==
--- NOTE | ~2023-04-07 | CT_ITS ---
EXAMINATION: CT ABDOMEN AND PELVIS WITH CONTRAST CLINICAL INFORMATION: Right upper quadrant pain COMPARISON: None available. TECHNIQUE: Multidetector volumetric images were obtained from the superior aspect of the liver through the pubic symphysis following administration 85 mL of Omnipaque 350 intravenous contrast. Sagittal and coronal reformatted images were obtained on the technologist's workstation. Oral contrast: No This CT examination was performed using dose optimization techniques as appropriate, variously including the following: *Automated exposure control *Adjustment of mA and/or kV according to patient size (this includes techniques or standardized protocols for targeted exams where dose is matched to indication/reason for exam; i.e. extremities or head) *Use of iterative reconstruction technique DLP: 657 mGy-cm FINDINGS: LUNG BASES: The visualized lung bases are unremarkable. LIVER, GALLBLADDER, AND BILIARY TREE: The liver is normal in size, shape, and attenuation. No focal hepatic lesion or biliary ductal dilatation is present. The gallbladder is unremarkable with no evidence of radiopaque gallstones, gallbladder wall thickening, or obvious pericholecystic inflammatory changes. PANCREAS: Unremarkable. SPLEEN: Unremarkable. ADRENAL GLANDS: Unremarkable. KIDNEYS AND URETERS: A 6 mm low-density lesion in the interpolar cortex of the right kidney is likely a cyst, though too small to characterize. No follow-up is indicated. The kidneys are normal in size, shape, and attenuation. No hydronephrosis, hydroureter, or calculi seen. No perinephric stranding. BLADDER: Unremarkable. GASTROINTESTINAL TRACT: The small and large bowel are unremarkable. The appendix is unremarkable. ABDOMINAL WALL: No significant hernia is appreciated. LYMPH NODES: Normal. VASCULAR: Unremarkable. PELVIC VISCERA: Unremarkable. Follicles are noted in both ovaries. OSSEOUS STRUCTURES: There is a unilateral right-sided spondylolysis at L5. CT/CT abdomen pelvis w IV con IMPRESSION: 1. No acute findings in the abdomen or pelvis. 2. Unilateral Right L5 spondylolysis. Fleischner guidelines were followed.
[2023-04-07 07:11] VITALS: BP 128/79; PULSE 88; RESP 18; TEMP 36.3; O2SAT 98; BMI 34.3
[2023-04-07 07:29] LABS: MANUAL DIFF FLAG NO
[2023-04-07 07:37] LABS: Basophils Absolute Auto 0.1 X10*3/uL (0.0-0.2); Basophils Percent Auto 0.6 % (0-2); Eosinophils Absolute Auto 0.1 X10*3/uL (0.0-0.4); Hematocrit 36.8 % (37.0-47.0); Imm Gran Abs Auto 0.06 X10*3/uL (0.00-0.03); Imm Gran Pct Auto 0.7 % (0.0-0.4); Lymphocytes Percent Auto 22.3 % (20-40); Mean Corpuscular HGB Conc 32.6 g/dl (31.0-35.0); Mean Corpuscular Hemoglobin 29.2 pg (27.0-33.0); Mean Corpuscular Volume 89.5 fL (80.0-98.0); Mean Platelet Volume 10.1 fL (9.4-12.3); Monocytes Absolute Auto 0.4 X10*3/uL (0.1-1.2); Neutrophils Absolute Auto 6.2 x10*3/uL (2.0-8.3); Neutrophils Percent Auto 70.4 % (45-73); Platelet Count 290 X10*3/uL (160-400); Red Blood Count 4.11 X10*6/uL (4.20-5.50); Red Cell Distribution Width 12.9 % (11.0-16.0); White Blood Count 8.8 X10*3/uL (4.8-10.8)
[2023-04-07 07:48] LABS: Alanine Aminotransferase 12 U/L (0-31); Albumin Level 4.3 g/dL (3.5-5.0); Alkaline Phosphatase 92 U/L (39-117); Anion Gap 11 (12-20); Aspartate Amino Transferase 13 U/L (5-31); Bilirubin Direct < 0.2 mg/dL (0.0-0.5); Bilirubin Total 0.1 mg/dL (0.0-1.0); Blood Urea Nitrogen 17 mg/dL (9-16); Carbon Dioxide 24 mmol/L (22-29); Chloride 109 mmol/L (96-108); Estimated Glomerular Filt Rate > 60; Glucose Random 95 mg/dL (60-115); Lipase 16 U/L (8-78); Sodium 140 mmol/L (135-145); Total Protein 7.6 g/dL (6.5-8.0)
[2023-04-07 07:49] LABS: COVID-19 Test Negative (Negative); IDNOW Serial# 08D9AD1C; IDNOW Serial# BCCEAD1C; Influenza A Negative (Negative); Influenza B2 Negative (Negative)
--- NOTE | 2023-04-07 08:34 | ED_ITS ---
HPI - Abdominal Pain General Chief Complaint: Abdominal Pain Stated Complaint: diarrhea abd pain Time Seen by Provider: 04/07/23 07:53 Source: patient Mode of arrival: ambulatory Limitations: no limitations History of Present Illness HPI narrative: 28 years old female presented to the ED with a chief complaint of abdominal pain localized in the upper abdomen also complaining of vomiting and diarrhea since yesterday. MD elicited complaint: abdominal pain Pertinent past history: none Onset (ago): day(s) (1) Pain Consistency: constant Location: epigastric and RUQ Radiation: none Exacerbating factors: nothing Relieving factors: nothing Associated symptoms: vomiting and diarrhea Related Data Home Medications Medication Instructions Recorded Confirmed ferrous sulfate 325 mg (65 mg 325 mg PO BID 10/15/22 iron) tablet fluticasone propionate 50 0 mcg intranasal 10/15/22 mcg/actuation nasal spray,suspension diclofenac sodium 1 % topical gel g topical BID 11/06/22 ibuprofen 600 mg tablet 600 mg PO Q8H PRN mild pain 11/06/22 Previous Rx's Medication Instructions Recorded medroxyprogesterone 10 mg tablet 10 mg PO DAILY 10 days #30 tabs 03/26/23 (Provera) ondansetron HCl 4 mg tablet 4 mg PO Q8H PRN nausea and 04/07/23 vomiting #14 tabs Allergies Allergy/AdvReac Type Severity Reaction Status Date / Time No Known Allergies Allergy Verified 02/06/23 15:59 Review of Systems Constitutional: Reports no additional constitutional complaints Reports system reviewed and no additional complaints, except as documented Cardiovascular: Reports no additional cardiovascular complaints Reports system reviewed and no additional complaints, except as documented [facility] Past Medical History Attestation statement: The following information was validated with the patient. Medical History Anemia Surgical History History of tubal ligation Social History Social History Unable to assess alcohol history related to: Unknown Alcohol intake: never Patient Tobacco Use Status: Never used Tobacco Smoked in Last 30 Days: No Use of substances other than those prescribed or required for medical reasons: No Advance Directives: No Advance Directives Information Provided: No Patient : No Physical Exam ED Vital Signs: Vital Signs - 24 hr 04/07/23 07:11 04/07/23 09:24 04/07/23 11:30 Temperature 97.4 F Pulse Rate 88 83 81 Respiratory Rate 18 16 16 Blood Pressure 128/79 119/84 129/79 Pulse Oximetry 98 99 99 Oxygen Delivery Method Room Air Room Air Room Air BMI result Body Mass Index 34.3 Const General: cooperative Nutritional Appearance: well nourished Limitations: no limitations HENMT Head: Yes normal to inspection Ears: hearing grossly normal bilaterally General nose exam: Normal external nose present Face and sinus: Yes normal facial exam Mouth: Normal oral and palatal mucosa present Throat: Yes posterior oropharynx normal Neck Neck: Yes normal visual inspection and Yes full ROM Chest Chest palpation & inspection: normal inspection of the chest Resp Effort & Inspection: normal respiratory effort Auscultation: clear to auscultation bilaterally Cardio Jugular venous distension: no JVD Rate: regular rate Rhythm: regular rhythm GI Inspection: Yes normal to inspection Palpation (GI): Soft to palpation, not firm, nontender, no guarding and not rigid Percussion: Yes normal to percussion General: Yes no CVA tenderness Back/Spine/Pelvis Back: no CVA tenderness Thoracic/Lumbar Spine: thoracic and lumbar spine normal to inspection Course Reevaluation(s) Reevaluation #1: Feels better asymptomatic lab and imaging OK will d/c home Time: 14:14 Medical Decision Making Medical Decision Making [facility] Narrative: Patient presented with epigastric abdominal pain along with diarrhea nausea vomiting, labs CT okay, clinical picture is more consistent with the viral gastroenteritis. Re-examined at 14:15 patient is doing much better tolerating p.o. well anticipate discharge home Differential Diagnosis Differential Diagnoses: The differential diagnosis associated with the presentation includes diverticulitis/colitis/viral gastroenteritis Admission/Observation Consideration of admission/observation: Escalation of care including admission/observation considered Lab Data [facility] Lab Attestation statement: I reviewed the patient's lab results. 04/07/23 07:24 04/07/23 07:24 Labs: Lab Results 04/07/23 04/07/23 Range/Units 07:24 11:19 WBC 8.8 (4.8-10.8) X10*3/uL RBC 4.11 L (4.20-5.50) X10*6/uL Hgb 12.0 (12.0-16.0) g/dl Hct 36.8 L (37.0-47.0) % MCV 89.5 (80.0-98.0) fL MCH 29.2 (27.0-33.0) pg MCHC 32.6 (31.0-35.0) g/dl RDW 12.9 (11.0-16.0) % Plt Count 290 (160-400) X10*3/uL MPV 10.1 (9.4-12.3) fL Immature Gran % (Auto) 0.7 H (0.0-0.4) % Neut % (Auto) 70.4 (45-73) % Lymph % (Auto) 22.3 (20-40) % [place] % (Auto) 5.0 (2-11) % Eos % (Auto) 1.0 (0-4) % Baso % (Auto) 0.6 (0-2) % Lymph # (Auto) 2.0 (1.2-4.9) X10*3/uL [place] # (Auto) 0.4 (0.1-1.2) X10*3/uL Eos # (Auto) 0.1 (0.0-0.4) X10*3/uL Baso # (Auto) 0.1 (0.0-0.2) X10*3/uL Abs Immat Gran (auto) 0.06 H (0.00-0.03) X10*3/uL Absolute Neuts (auto) 6.2 (2.0-8.3) x10*3/uL Absolute Nucleated RBC 0.000 (0.0-0.012) X10*3/uL Nucleated RBC % (auto) 0.0 (0.0-0.2) /100WBC Sodium 140 (135-145) mmol/L Potassium 4.0 (3.3-5.1) mmol/L Chloride 109 H (96-108) mmol/L Carbon Dioxide 24 (22-29) mmol/L Anion Gap 11 L (12-20) BUN 17 H (9-16) mg/dL Creatinine 0.84 (0.5-1.4) mg/dL Estim Creat Clear Calc 99.0 Estimated GFR > 60 Random Glucose 95 (60-115) mg/dL Calcium 9.0 (8.4-10.2) mg/dL Total Bilirubin 0.1 (0.0-1.0) mg/dL Direct Bilirubin < 0.2 (0.0-0.5) mg/dL AST 13 (5-31) U/L ALT 12 (0-31) U/L Alkaline Phosphatase 92 (39-117) U/L Total Protein 7.6 (6.5-8.0) g/dL Albumin 4.3 (3.5-5.0) g/dL Lipase 16 (8-78) U/L Urine Color Yellow Urine Appearance Clear Urine pH 7.0 (5.0-9.0) Ur Specific [place] >= 1.030 H (1.005-1.025) Urine Protein Negative (Neg-Trace) mg/dL Urine Glucose (UA) Negative (Negative) mg/dL Urine Ketones Negative (Negative) mg/dL Urine Blood Trace H (Negative) Urine Nitrite Negative (Negative) Ur Leukocyte Esterase Negative (Negative) Urine RBC 0-2 (0-2) /HPF Urine WBC 0-5 (0-5) /HPF Ur Squamous Epith Cells 3-5 (0-2) /HPF Urine Bacteria None Seen (None Seen) Hyaline Casts 0-2 (0-2) /LPF Urine Test NEGATIVE (NEGATIVE) COVID-19 (SAM) Negative (Negative) COVID-19 Clin Com See Note Influenza Type A (BERNIE) Negative (Negative) Influenza Type B (BERNIE) Negative (Negative) Influenza A & B Note See Note Independent Interpretation I performed an independent interpretation of an: CT Scan Interpretation: normal Radiology Impression Discussion of test interpretation with radiology: I have reviewed the radiologist's reading. Radiologist Impression: VASCULAR: Unremarkable. PELVIC VISCERA: Unremarkable. Follicles are noted in both ovaries. OSSEOUS STRUCTURES: There is a unilateral right-sided spondylolysis at L5. CT/CT abdomen pelvis w IV con IMPRESSION: 1. No acute findings in the abdomen or pelvis. 2. Unilateral Right L5 spondylolysis. Fleischner guidelines were followed. Dictated By: Simon Mooney MD Signed By: <Electronically signed by Medications Administered Discontinued Medications Generic Name Dose Route Start Last Admin Trade Name Freq PRN Reason Stop Dose Admin Sodium Chloride 1,000 mls @ 999 mls/hr 04/07/23 08:45 04/07/23 11:51 Ns IVCONT 04/07/23 09:45 Infused .Q1H1M SOHEILA Infusion Sodium Chloride 1,000 mls @ 999 mls/hr 04/07/23 11:45 04/07/23 12:54 Ns IVCONT 04/07/23 12:45 Infused .Q1H1M SOHEILA Infusion Iohexol 85 ml 04/07/23 10:00 04/07/23 10:02 Iohexol 350 Mg/Ml 100 Ml Infus..Btl IV 04/07/23 10:01 85 ml ONCE ONE Administration Metoclopramide HCl 10 mg 04/07/23 11:40 04/07/23 11:53 Metoclopramide Hcl 10 Mg/2 Ml Vial IVPUSH 04/07/23 11:41 10 mg ONCE ONE Administration Morphine Sulfate 4 mg 04/07/23 08:32 04/07/23 09:33 Morphine Sulfate 4 Mg/Ml Cartridge IVPUSH 04/07/23 08:33 4 mg ONCE ONE Administration Protocol Ondansetron HCl 4 mg 04/07/23 08:32 04/07/23 09:33 Ondansetron Hcl 4 Mg/2 Ml Vial IVPUSH 04/07/23 08:33 4 mg ONCE ONE Administration Discharge Plan Discharge Clinical Impression: Abdominal pain in female patient, Vomiting Patient Disposition: Home, Self-Care Instructions: Acute Nausea and Vomiting (ED), Abdominal Pain (ED) Prescriptions: New ondansetron HCl 4 mg tablet 4 mg PO Q8H PRN (Reason: nausea and vomiting) Qty: 14 0RF No Action medroxyprogesterone [Provera] 10 mg tablet 10 mg PO DAILY 10 Days Qty: 30 3RF Rx Instructions: start Provera 1 tablet daily from day 15-24 cyclically every months, day 1 being 1st day of menses ferrous sulfate 325 mg (65 mg iron) tablet 325 mg PO BID fluticasone propionate 50 mcg/actuation spray,suspension 0 mcg intranasal ibuprofen 600 mg tablet 600 mg PO Q8H PRN (Reason: mild pain) diclofenac sodium 1 % gel topical BID Referrals: Lorena Rendon MD [Primary Care Provider] - 1 day Stand Alone Forms: Work/School Release Interventions: ED Discharge Assessment Last Done: 04/07/23 14:28 Discharge Date/Time: 04/07/23 14:29
[2023-04-07 09:24] VITALS: BP 119/84; PULSE 83; RESP 16; O2SAT 99
[2023-04-07] MEDS: 0.9 % Sodium Chloride 1,000 ML 999 ML IVCONT ×2 (09:31→11:52)
[2023-04-07] MEDS: Morphine Sulfate 4 MG/ML CARTRIDGE IVPUSH (09:33)
[2023-04-07] MEDS: ondansetron HCL 4 MG/2 ML VIAL IVPUSH (09:33)
[2023-04-07] MEDS: iohexoL 350 MG/ML 100 ML INFUS..BTL 85 ML IV (10:02)
[2023-04-07 11:28] LABS: Appearance Urine Clear; Color Urine Yellow; Glucose Urine UA Negative (Negative); Leukocyte Esterase Urine Negative (Negative); Nitrite Urine Negative (Negative); Specific Gravity - Urine >= 1.030 (1.005-1.025); UMIC TRIGGER UACC YES; Urine Blood Trace (Negative); Urine Ketones Negative (Negative); Urine Protein Negative (Neg-Trace)
[2023-04-07 11:30] VITALS: BP 129/79; PULSE 81; RESP 16; O2SAT 99
[2023-04-07 11:30] LABS: Bacteria Urine None Seen (None Seen); Hyaline Casts Urine 0-2 /LPF (0-2); RBC Urine 0-2 /HPF (0-2); WBC Urine 0-5 /HPF (0-5)
[2023-04-07 11:31] LABS: UPreg QC Valid YES; Urine Pregnancy NEGATIVE (NEGATIVE)
[2023-04-07] MEDS: Metoclopramide HCl 10 MG/2 ML VIAL IVPUSH (11:53)
== END 2023-04-07 14:29 | disposition home or self-care (01) ==
PROVIDERS: Emergency Provider Emergency Medicine; PCP Student in an Organized Health Care Education/Training Program
DX: R10.10 Upper abdominal pain, unspecified (principal); R11.10 Vomiting, unspecified; Z98.51 Tubal ligation status; Z11.52 Encounter for screening for COVID-19
CPT/HCPCS: 74177; 80053; 81001; 81025; 82248; 83690; 85025; 87502; 87635; 96361; 96374; 96375; 99284; J2270; J2405; J2765; Q9967

== ENCOUNTER 2023-05-08 13:39 | Outpatient (AMB) | payer MEDICAID, SELFPAY ==
--- NOTE | 2023-05-08 13:48 | A.OFFVIS_ITS ---
Intake Vital Signs 05/08/23 13:52 Height 5 ft 2 in Weight 187 lb 6.287 oz BMI 34.3 BP 126/74 Intake Visit Reasons: 3 month follow up meds Operations Specialists Required: Yes Operations Specialists Language: Programming Engineer Name: Monica TURCIOS Information Interpreted: non-clinical & clinical Accompanied by: Self / Same As Patient Allergies No Known Allergies Allergy (Verified 05/08/23 13:53) HPI HPI Comments History of Present Illness Details Presenting for 3 month follow-up Provera. The patient has been taking Provera 10 mg p.o. day 15-24 cyclicly, her menstrual cycles are regular and light. The patient is complaining of vaginal discharge with vulvovaginal irritation and itching over the last few days PFSH Medical History Anemia Surgical History History of tubal ligation Social History Unable to assess alcohol history related to: Unknown Alcohol intake: never Patient Tobacco Use Status: Never used Tobacco Female Reproductive History Menstrual Date of last menstrual period: 04/24/23 Review of Systems Const All systems reviewed & are unremarkable except as noted in HPI and below Physical Exam Vital Signs: Last Vital Signs BP 126/74 05/08/23 13:52 BMI result Body Mass Index 34.3 General: Yes no CVA tenderness External Female Exam: normal external appearance and normal appearance of the urethra Speculum Exam - Vagina: normal appearance of the vagina, normal palpation, no lesions and no masses Speculum Exam - Cervix: normal appearance of the cervix, normal palpation, no lesions, no masses and nontender Bimanual exam- vagina & uterus: normal bimanual exam, normal palpation, uterine size normal, normal palpation, uterine shape normal, No Cervical tenderness present and non-tender Bimanual Exam- Adnexa, other: normal adnexae Back/Spine/Pelvis Back: no CVA tenderness Assessment & Plan Assessment & Plan (1) Abnormal uterine bleeding: Code(s): N93.9 - Abnormal uterine and vaginal bleeding, unspecified Plan: Recommended to stay on Provera 10 mg p.o. q.d. 15-24 cyclicly , refill prescription was sent to the patient's pharmacy. (2) Vulvovaginitis: Code(s): N76.0 - Acute vaginitis Plan: GC/CT, Bacterial Vaginosis panel taken, Terazol 0.8% q.h.s. for 3 days was sent to the patient's pharmacy. The patient was instructed to call if symptoms don't improve in 48 hours. Medications: New terconazole 0.8% 1 appful vaginal BEDTIME 3 days 20 grams 0RF Refilled medroxyprogesterone (Provera) start Provera 1 tablet daily from day 15-24 cyclically every months, day 1 being 1st day of menses 10 mg PO DAILY 10 days 30 tabs 3RF Coding Level of Care Code Est Pt Level 3 (44069) Diagnoses Abnormal uterine bleeding N93.9 Vulvovaginitis N76.0
[2023-05-08 13:52] VITALS: BP 126/74; BMI 34.3
== END 2023-05-08 14:05 | disposition home or self-care (01) ==
PROVIDERS: PCP Student in an Organized Health Care Education/Training Program; Visit Provider Obstetrics & Gynecology
DX: N93.9 Abnormal uterine and vaginal bleeding, unspecified (principal); N76.0 Acute vaginitis
CPT/HCPCS: 99213

== ENCOUNTER 2023-05-08 13:39 | Outpatient (REF) | payer MEDICAID, SELFPAY ==
[2023-05-08 18:08] LABS: CT PCR NOT DETECTED (Not Detect.); NG PCR NOT DETECTED (Not Detect.)
[2023-05-09 13:21] LABS: BV Int Neg Control Negative (Negative); BV Int Pos Control Positive (Positive)
== END 2023-05-08 13:40 | disposition home or self-care (01) ==
LOC: HO.LNP 13:39
PROVIDERS: PCP Student in an Organized Health Care Education/Training Program; Visit Provider Obstetrics & Gynecology
DX: N76.0 Acute vaginitis (principal); N93.9 Abnormal uterine and vaginal bleeding, unspecified
CPT/HCPCS: 0353U; 87480; 87510; 87660; 99212

== ENCOUNTER 2023-10-01 04:48 | Emergency (ER) | payer MEDICAID, SELFPAY ==
--- NOTE | ~2023-10-01 | US_ITS ---
EXAMINATION: US ABDOMEN LIMITED CLINICAL INFORMATION: Upper abdominal pain and tenderness. COMPARISON: CT abdomen pelvis 04/07/2023 TECHNIQUE: Real-time imaging of the right upper quadrant abdominal viscera. FINDINGS: PANCREAS: The pancreas appears unremarkable, without masses or ductal dilatation, with the exception of the tail which is obscured by bowel gas. LIVER: The liver is normal in size. The liver contour is normal. Parenchymal echogenicity is normal. No focal hepatic lesion. There is no intrahepatic biliary duct dilatation seen. GALLBLADDER: The gallbladder is physiologically distended without evidence of stones, sludge, polyps, wall thickening or pericholecystic fluid. COMMON BILE DUCT: Normal in caliber measuring 0.4 cm in diameter. RIGHT KIDNEY: Cluster of echogenic structures are seen in the mid lateral kidney measuring 0.6 x 0.7 x 0.8 cm consistent with nonobstructing calculi. No calculi were seen at the time of the prior CT scan. No hydronephrosis. No focal parenchymal lesions. The kidney measures 9.1 cm in maximum dimension. FREE FLUID: None. US/US abdomen limited IMPRESSION: Nonobstructing right renal calculi.
[2023-10-01 04:49] VITALS: BP 137/79; PULSE 102; RESP 18; TEMP 36.8; O2SAT 97; BMI 34.0
--- NOTE | 2023-10-01 05:00 | MHC.EDTECH ---
Patient brought into triage area,labs,sars,and urine obtained and sent to lab.
[2023-10-01 05:11] LABS: Basophils Percent Auto 0.2 % (0-2); Eosinophils Absolute Auto 0.1 X10*3/uL (0.0-0.4); Eosinophils Percent Auto 0.7 % (0-4); Hematocrit 37.2 % (37.0-47.0); Hemoglobin 12.3 g/dl (12.0-16.0); Imm Gran Abs Auto 0.06 X10*3/uL (0.00-0.03); Imm Gran Pct Auto 0.4 % (0.0-0.4); Lymphocytes Absolute Auto 0.8 X10*3/uL (1.2-4.9); Lymphocytes Percent Auto 5.4 % (20-40); MANUAL DIFF FLAG SCAN; Mean Corpuscular HGB Conc 33.1 g/dl (31.0-35.0); Mean Corpuscular Hemoglobin 28.4 pg (27.0-33.0); Mean Corpuscular Volume 85.9 fL (80.0-98.0); Mean Platelet Volume 9.5 fL (9.4-12.3); Monocytes Absolute Auto 0.4 X10*3/uL (0.1-1.2); Monocytes Percent Auto 3.1 % (2-11); Neutrophils Absolute Auto 12.7 x10*3/uL (2.0-8.3); Neutrophils Percent Auto 90.2 % (45-73); Platelet Count 299 X10*3/uL (160-400); Red Blood Count 4.33 X10*6/uL (4.20-5.50); Red Cell Distribution Width 13.2 % (11.0-16.0); SCAN SMEAR FLAG 1; White Blood Count 14.1 X10*3/uL (4.8-10.8)
[2023-10-01 05:12] LABS: Appearance Urine Clear; Color Urine Yellow; Glucose Urine UA Negative (Negative); Leukocyte Esterase Urine Negative (Negative); Nitrite Urine Negative (Negative); Specific Gravity - Urine 1.025 (1.005-1.025); Urine Blood Negative (Negative); Urine Ketones Negative (Negative); Urine Protein Negative (Neg-Trace)
[2023-10-01 05:13] LABS: UPreg QC Valid YES; Urine Pregnancy NEGATIVE (NEGATIVE)
[2023-10-01 05:15] LABS: Bacteria Urine None Seen (None Seen); Hyaline Casts Urine 0-2 /LPF (0-2); RBC Urine 0-2 /HPF (0-2); WBC Urine 0-5 /HPF (0-5)
[2023-10-01 05:24] LABS: Alanine Aminotransferase 19 U/L (0-31); Albumin Level 4.3 g/dL (3.5-5.0); Alkaline Phosphatase 89 U/L (39-117); Anion Gap 16 (12-20); Aspartate Amino Transferase 15 U/L (5-31); Bilirubin Total 0.5 mg/dL (0.0-1.0); Blood Urea Nitrogen 17 mg/dL (9-16); Calcium 9.3 mg/dL (8.4-10.2); Carbon Dioxide 21 mmol/L (22-29); Chloride 106 mmol/L (96-108); Creatinine Clr Calc Pharmacy 111.9; Estimated Glomerular Filt Rate > 60; Glucose Random 104 mg/dL (60-115); Lipase 13 U/L (8-78); Potassium 4.2 mmol/L (3.3-5.1); Sodium 139 mmol/L (135-145); Total Protein 7.6 g/dL (6.5-8.0)
[2023-10-01 05:34] LABS: SLIDE REVIEW VERIFIED
[2023-10-01 05:47] LABS: Influenza A PCR NEGATIVE (Negative); Influenza B PCR NEGATIVE (Negative); Resp Syncy Virus RNA Qual PCR NEGATIVE (Negative); SARS COV2 PCR INHOUSE NEGATIVE (Negative)
--- NOTE | 2023-10-01 07:15 | ED.GENADULT ---
HPI - General Adult General Chief complaint: Abdominal Pain Stated complaint: stomach/chest pain Time Seen by Provider: 10/01/23 07:14 History of Present Illness HPI narrative: The patient is a 28-year-old female who says that in the middle of the night last night, perhaps around 01:00 this morning, she started to feel unwell with upper abdominal pain, nausea, vomiting, and diarrhea. No definite fever. She has never had an episode like this before. She has a history of C-sections but no other surgical history. No vaginal symptoms. No urinary discomfort. No significant back pain. She feels her discomfort primarily in the mid upper abdomen. Related Data Home Medications ?Medication ?Instructions ?Recorded ?Confirmed ferrous sulfate 325 mg (65 mg 325 mg PO BID 10/15/22 iron) tablet fluticasone propionate 50 0 mcg intranasal 10/15/22 mcg/actuation nasal spray,suspension diclofenac sodium 1 % topical gel g topical BID 11/06/22 ibuprofen 600 mg tablet 600 mg PO Q8H PRN mild pain 11/06/22 Previous Rx's ?Medication ?Instructions ?Recorded ondansetron HCl 4 mg tablet 4 mg PO Q8H PRN nausea and 04/07/23 vomiting #14 tabs medroxyprogesterone 10 mg tablet 10 mg PO DAILY 10 days #30 tabs 05/08/23 (Provera) terconazole 0.8 % vaginal cream 1 appful vaginal BEDTIME 3 days 05/08/23 #20 grams omeprazole 40 mg capsule,delayed 40 mg PO DAILY #30 caps 10/01/23 release ondansetron 4 mg disintegrating 4 mg PO Q6H PRN nausea and 10/01/23 tablet vomiting #7 tabs Allergies Allergy/AdvReac Type Severity Reaction Status Date / Time No Known Allergies Allergy Verified 10/01/23 04:52 Review of Systems Review of Systems: Yes all other systems are reviewed and are negative [facility] Past Medical History Medical History Anemia Surgical History History of tubal ligation Social History Social History Unable to assess alcohol history related to: Unknown Alcohol intake: never Patient Tobacco Use Status: Never used Tobacco Smoked in Last 30 Days: No Use of substances other than those prescribed or required for medical reasons: No Advance Directives: No Do you have a plan to hurt others: No Plan Physical Exam ED Vital Signs: Vital Signs - 24 hr 10/01/23 12:26 10/01/23 16:09 10/01/23 16:44 Temperature 99.3 F 97.7 F 97.7 F Pulse Rate 100 94 94 Respiratory Rate 16 16 16 Blood Pressure 128/71 113/64 113/64 Pulse Oximetry 98 99 99 Oxygen Delivery Method Room Air Room Air Room Air BMI result Body Mass Index 34.0 Const Other: The patient is awake and alert. She looks fatigued. HENMT Other: Face is symmetrical, mucous membranes moist Eyes Other: Pupils are round equal, no scleral icterus Neck Other: Moving her neck easily Resp Effort & Inspection: normal respiratory effort Auscultation: clear to auscultation bilaterally Cardio Rate: regular rate Rhythm: regular rhythm Heart sounds: S1 normal heart sound present and S2 normal heart sound present GI Other: There is tenderness in the epigastrium. The rest of the abdomen seems fairly nontender. Back/Spine/Pelvis Other: No CVA percussion tenderness on either flank Skin Other: Skin is dry and unremarkable Neuro Other: The patient is awake and alert, speech is clear, moving extremities symmetrically Extrem Other: No peripheral edema Medications Administered Discontinued Medications Generic Name Dose Route Start Last Admin Trade Name Freq PRN Reason Stop Dose Admin Famotidine 20 mg 10/01/23 12:34 10/01/23 12:49 Famotidine/Pf 20 Mg/2 Ml Vial IVPUSH 10/01/23 12:35 20 mg ONCE ONE Administration Sodium Chloride 1,000 mls @ 999 mls/hr 10/01/23 12:45 10/01/23 13:55 Ns IV 10/01/23 13:45 Infused .Q1H1M SOHEILA Infusion Sodium Chloride 1,000 mls @ 999 mls/hr 10/01/23 14:45 10/01/23 15:38 Ns IV 10/01/23 15:45 999 mls/hr .Q1H1M SOHEILA Administration Ketorolac Tromethamine 10 mg 10/01/23 12:32 10/01/23 12:49 Ketorolac Tromethamine 15 Mg/Ml Vial IVPUSH 10/01/23 12:33 10 mg ONCE ONE Administration Metoclopramide HCl 10 mg 10/01/23 12:32 10/01/23 12:49 Metoclopramide Hcl 10 Mg/2 Ml Vial IVPUSH 10/01/23 12:33 10 mg ONCE ONE Administration Ondansetron HCl 4 mg 10/01/23 07:23 10/01/23 07:25 Ondansetron Odt 4 Mg Tab.Rapdis TRANSLINGU 10/01/23 07:24 4 mg ONCE ONE Administration Medical Decision Making Medical Decision Making [facility] Narrative: The patient presented with abdominal pain, primarily in the midepigastrium, associated with nausea vomiting and diarrhea. On exam she has epigastric [place] [address] [place] 90% neutrophils. Chemistries were unremarkable. test was negative. Patient was treated symptomatically with ketorolac, metoclopramide, famotidine, and IV fluids. She felt considerably better. Additionally I had ordered a limited ultrasound to evaluate her gallbladder. There was a large delay in the reading of the ultrasound because of technical problems. The patient was therefore discharged prior to the availability of the ultrasound report. She was feeling much better at that point. She was prescribed omeprazole. The ultrasound report was later available. There were no findings to suggest a biliary source of her pain. There was an incidental finding of possible small right-sided nonobstructing renal stones. Lab Data 10/01/23 05:01 10/01/23 05:01 Labs: Lab Results 10/01/23 10/01/23 Range/Units 05:01 05:02 WBC 14.1 H (4.8-10.8) X10*3/uL RBC 4.33 (4.20-5.50) X10*6/uL Hgb 12.3 (12.0-16.0) g/dl Hct 37.2 (37.0-47.0) % MCV 85.9 (80.0-98.0) fL MCH 28.4 (27.0-33.0) pg MCHC 33.1 (31.0-35.0) g/dl RDW 13.2 (11.0-16.0) % Plt Count 299 (160-400) X10*3/uL MPV 9.5 (9.4-12.3) fL Immature Gran % (Auto) 0.4 (0.0-0.4) % Neut % (Auto) 90.2 H (45-73) % Lymph % (Auto) 5.4 L (20-40) % [place] % (Auto) 3.1 (2-11) % Eos % (Auto) 0.7 (0-4) % Baso % (Auto) 0.2 (0-2) % Lymph # (Auto) 0.8 L (1.2-4.9) X10*3/uL [place] # (Auto) 0.4 (0.1-1.2) X10*3/uL Eos # (Auto) 0.1 (0.0-0.4) X10*3/uL Baso # (Auto) 0.0 (0.0-0.2) X10*3/uL Abs Immat Gran (auto) 0.06 H (0.00-0.03) X10*3/uL Absolute Neuts (auto) 12.7 H (2.0-8.3) x10*3/uL Absolute Nucleated RBC 0.000 (0.0-0.012) X10*3/uL Nucleated RBC % (auto) 0.0 (0.0-0.2) /100WBC Smear Tech's Comments VERIFIED Sodium 139 (135-145) mmol/L Potassium 4.2 (3.3-5.1) mmol/L Chloride 106 (96-108) mmol/L Carbon Dioxide 21 L (22-29) mmol/L Anion Gap 16 (12-20) BUN 17 H (9-16) mg/dL Creatinine 0.74 (0.5-1.4) mg/dL Estim Creat Clear Calc 111.9 Estimated GFR > 60 Random Glucose 104 (60-115) mg/dL Calcium 9.3 (8.4-10.2) mg/dL Total Bilirubin 0.5 (0.0-1.0) mg/dL AST 15 (5-31) U/L ALT 19 (0-31) U/L Alkaline Phosphatase 89 (39-117) U/L Total Protein 7.6 (6.5-8.0) g/dL Albumin 4.3 (3.5-5.0) g/dL Lipase 13 (8-78) U/L Urine Color Yellow Urine Appearance Clear Urine pH 8.0 (5.0-9.0) Ur Specific [place] 1.025 (1.005-1.025) Urine Protein Negative (Neg-Trace) mg/dL Urine Glucose (UA) Negative (Negative) mg/dL Urine Ketones Negative (Negative) mg/dL Urine Blood Negative (Negative) Urine Nitrite Negative (Negative) Ur Leukocyte Esterase Negative (Negative) Urine RBC 0-2 (0-2) /HPF Urine WBC 0-5 (0-5) /HPF Ur Squamous Epith Cells 6-10 (0-2) /HPF Urine Bacteria None Seen (None Seen) Hyaline Casts 0-2 (0-2) /LPF Urine Test NEGATIVE (NEGATIVE) Influenza Type A (PCR) NEGATIVE (Negative) Influenza Type B (PCR) NEGATIVE (Negative) RSV RNA Qual (PCR) NEGATIVE (Negative) SARS-CoV-2 RNA (RT-PCR) NEGATIVE (Negative) Discharge Plan Discharge Clinical Impression: Acute upper abdominal pain, Nausea, vomiting, and diarrhea Patient Disposition: Home, Self-Care Additional Instructions: I have sent a prescription for medication called omeprazole to your pharmacy. This is a medication which helps reduce stomach acid production. I think it might be helpful to take this medication at least for a few days. I will contact you at [phone] if there are any concerning findings on your ultrasound. Otherwise please rest and take it easy tonight and tomorrow. I have also sent a prescription for a nausea medication called ondansetron that you may use as needed for nausea. Please plan on making a follow up appointment with your regular doctor soon to discuss this episode further. Return to the emergency room if significantly worse. Prescriptions: New omeprazole 40 mg capsule,delayed release(DR/EC) 40 mg PO DAILY Qty: 30 0RF ondansetron 4 mg tablet,disintegrating 4 mg PO Q6H PRN (Reason: nausea and vomiting) Qty: 7 0RF No Action ondansetron HCl 4 mg tablet 4 mg PO Q8H PRN (Reason: nausea and vomiting) Qty: 14 0RF ferrous sulfate 325 mg (65 mg iron) tablet 325 mg PO BID fluticasone propionate 50 mcg/actuation spray,suspension 0 mcg intranasal medroxyprogesterone [Provera] 10 mg tablet 10 mg PO DAILY 10 Days Qty: 30 3RF Rx Instructions: start Provera 1 tablet daily from day 15-24 cyclically every months, day 1 being 1st day of menses terconazole 0.8 % cream 1 appful vaginal BEDTIME 3 Days Qty: 20 0RF ibuprofen 600 mg tablet 600 mg PO Q8H PRN (Reason: mild pain) diclofenac sodium 1 % gel topical BID Referrals: Lorena Rendon MD [Primary Care Provider] - (Abdominal pain) Stand Alone Forms: Work/School Release Interventions: ED Discharge Assessment Last Done: 10/01/23 16:44 Discharge Date/Time: 10/01/23 16:45 Print Language: [place]
[2023-10-01 07:20] VITALS: BP 136/76; PULSE 104; RESP 16; TEMP 37.4; O2SAT 98
[2023-10-01] MEDS: Ondansetron ODT 4 MG TAB.RAPDIS TRANSLINGU (07:25)
[2023-10-01 12:26] VITALS: BP 128/71; PULSE 100; RESP 16; TEMP 37.4; O2SAT 98
--- NOTE | 2023-10-01 12:28 | PC.NURSE ---
Assumed care of this patient at 1100, patient resting quietly on stretcher continues to complain of headache and abd pain.
[2023-10-01] MEDS: Ketorolac Tromethamine 15 MG/ML VIAL 10 MG IVPUSH (12:49)
[2023-10-01] MEDS: 0.9 % Sodium Chloride 1,000 ML 999 ML IV ×2 (12:49→15:38)
[2023-10-01] MEDS: Famotidine/PF 20 MG/2 ML VIAL IVPUSH (12:49)
[2023-10-01] MEDS: Metoclopramide HCl 10 MG/2 ML VIAL IVPUSH (12:49)
--- NOTE | 2023-10-01 14:36 | PC.NURSE ---
Patient states she has decreased pain, able to walk with steady gait to use bathroom. Patient currently waitinf for US.
[2023-10-01 16:09] VITALS: BP 113/64; PULSE 94; RESP 16; TEMP 36.5; O2SAT 99
[2023-10-01 16:44] VITALS: BP 113/64; PULSE 94; RESP 16; TEMP 36.5; O2SAT 99
== END 2023-10-01 16:45 | disposition home or self-care (01) ==
PROVIDERS: Emergency Provider Emergency Medicine; PCP Student in an Organized Health Care Education/Training Program
DX: R10.10 Upper abdominal pain, unspecified (principal); R11.2 Nausea with vomiting, unspecified; R19.7 Diarrhea, unspecified; Z03.818 Encounter for observation for suspected exposure to other biological agents ruled out
CPT/HCPCS: 0241U; 36415; 76705; 80053; 81001; 81025; 83690; 85025; 96361; 96374; 96375; 99284; J1885; J2765

== ENCOUNTER 2023-11-04 15:48 | Outpatient (AMB) | payer MEDICAID, SELFPAY ==
--- NOTE | 2023-11-04 15:49 | A.OFFVIS_ITS ---
Vital Signs 11/04/23 15:50 Height 5 ft 2 in Weight 186 lb 6 oz BMI 34.1 BP 114/62 Blood Pressure Location Lt brachial Position Sitting Intake Visit Reasons: ADMITTING REPRESENTATIVE annual exam Explosive Ordnance Handler Required: Yes Explosive Ordnance Handler Language: Adhesive Bonding Machine Operator Name: Monica TURCIOS Information Interpreted: non-clinical & clinical Modern And Contemporary Art Curator: Modern And Contemporary Art Curator Present (Monica TURCIOS) Accompanied by: Self / Same As Patient Allergies No Known Allergies Allergy (Verified 11/04/23 15:52) HPI Comments Details: Presenting for annual exam. No complaints. Last Pap was negative in 10/08 [facility] Medical History Anemia Surgical History History of tubal ligation Social History Unable to assess alcohol history related to: Unknown Alcohol intake: never Patient Tobacco Use Status: Never used Tobacco Female Reproductive History Menstrual Duration of menses: 3-5 days Date of last menstrual period: 10/28/23 control method: none Total pregnancies: 3 Full term: 3 Date of last pap smear: 10/16/22 Review of Systems Const All systems reviewed & are unremarkable except as noted in HPI and below Card Reports as per HPI Resp Reports as per HPI GI Reports as per HPI and Reports no additional complaints Reports as per HPI Physical Exam Vital Signs: Last Vital Signs BP 114/62 11/04/23 15:50 BMI result Body Mass Index 34.1 Const General: cooperative, healthy appearing and comfortable Chest Chest palpation & inspection: normal inspection of the chest and normal palpation of entire chest wall Breast/axilla inspection: normal inspection of the breasts and normal inspection of the axillae Breast/axilla palpation: normal palpation of the breasts, normal palpation of the axillae and no axillary lymphadenopathy Resp Effort & Inspection: normal respiratory effort Auscultation: clear to auscultation bilaterally Percussion: percussion normal Cardio Palpation: normal PMI Rate: regular rate Rhythm: regular rhythm Heart sounds: no murmurs and no rubs Peripheral pulses: Peripheral pulses 2+ throughout GI Inspection: Yes normal to inspection Palpation (GI): Soft to palpation, nontender, no guarding, not rigid and No hepatosplenomegaly present Percussion: Yes normal to percussion Auscultation: normal bowel sounds Rectal Exam - Female: deferred General: Yes bladder normal to palpation External Female Exam: No lesion Speculum Exam - Vagina: normal appearance of the vagina, normal palpation, normal vaginal discharge and not erythematous Speculum Exam - Cervix: normal appearance of the cervix and normal palpation Bimanual exam- vagina & uterus: normal bimanual exam, normal palpation, uterine size normal, bladder normal to palpation, consistency normal and normal palpation Bimanual Exam- Adnexa, other: normal adnexae, no masses and no tenderness Assessment & Plan Assessment & Plan (1) Well woman exam: Code(s): Z01.419 - Encounter for gynecological examination (general) (routine) without abnormal findings Category: Medical Plan: Cotesting not indicated this year. Counseled the patient about the recommended dietary allowance of 1000 mg of Calcium & 600 IU of vitamin D. The patient was instructed to perform monthly self-breast exams and to schedule an annual exam in a year; All questions answered and the patient verbalized understanding. Instructed the patient to schedule annual exam in a year Coding Level of Care Code Est Pt Prev Care 18-39y(08554) Diagnoses Well woman exam Z01.419
[2023-11-04 15:50] VITALS: BP 114/62; BMI 34.1
== END 2023-11-04 16:08 | disposition home or self-care (01) ==
PROVIDERS: PCP Student in an Organized Health Care Education/Training Program; Referring Provider Student in an Organized Health Care Education/Training Program; Visit Provider Obstetrics & Gynecology
DX: Z01.419 Encounter for gynecological examination (general) (routine) without abnormal findings (principal)
CPT/HCPCS: 99395

== ENCOUNTER → 2023-11-04 15:48 | Outpatient (BNVA) | payer MEDICAID, SELFPAY | PROVIDERS: PCP Student in an Organized Health Care Education/Training Program; Visit Provider Obstetrics & Gynecology | DX: Z01.419 Encounter for gynecological examination (general) (routine) without abnormal findings (principal) | CPT/HCPCS: 99395 ==

== ENCOUNTER 2023-11-13 08:44 | Emergency (ER) | payer MEDICAID, SELFPAY ==
[2023-11-13 09:03] VITALS: BP 113/69; PULSE 74; RESP 19; TEMP 36.6; O2SAT 99; BMI 34.6
[2023-11-13 09:59] LABS: Influenza A PCR NEGATIVE (Negative); Influenza B PCR NEGATIVE (Negative); Resp Syncy Virus RNA Qual PCR NEGATIVE (Negative); SARS COV2 PCR INHOUSE NEGATIVE (Negative)
--- NOTE | 2023-11-13 10:30 | ED.GENADULT ---
HPI - General Adult General Chief complaint: General Medical Stated complaint: headache nausea Time Seen by Provider: 11/13/23 10:28 Source: patient Mode of arrival: ambulatory Limitations: no limitations History of Present Illness ED Provider: Deepika BELL narrative: Patient is a 28-year-old Ethiopian-speaking female presenting to the emergency department with complaint of sore throat, headache, subjective fever and nausea since Friday. Denies any cough or shortness of breath. Denies any ear pain. Denies any chest or abdominal pain. Denies any vomiting or diarrhea. Denies any urinary symptoms. Has not taken any [id number] medications for her symptoms. complaint: Fever, sore throat, headache Onset (ago): day(s) Treatments prior to arrival: none Related Data Home Medications ?Medication ?Instructions ?Recorded ?Confirmed ferrous sulfate 325 mg (65 mg 325 mg PO BID 10/15/22 iron) tablet fluticasone propionate 50 0 mcg intranasal 10/15/22 mcg/actuation nasal spray,suspension diclofenac sodium 1 % topical gel g topical BID 11/06/22 ibuprofen 600 mg tablet 600 mg PO Q8H PRN mild pain 11/06/22 Previous Rx's ?Medication ?Instructions ?Recorded ondansetron HCl 4 mg tablet 4 mg PO Q8H PRN nausea and 04/07/23 vomiting #14 tabs medroxyprogesterone 10 mg tablet 10 mg PO DAILY 10 days #30 tabs 05/08/23 (Provera) terconazole 0.8 % vaginal cream 1 appful vaginal BEDTIME 3 days 05/08/23 #20 grams omeprazole 40 mg capsule,delayed 40 mg PO DAILY #30 caps 10/01/23 release ondansetron 4 mg disintegrating 4 mg PO Q6H PRN nausea and 10/01/23 tablet vomiting #7 tabs penicillin V potassium 500 mg 500 mg PO BID 10 days #20 tabs 11/13/23 tablet Allergies Allergy/AdvReac Type Severity Reaction Status Date / Time No Known Allergies Allergy Verified 11/13/23 09:05 Review of Systems Review of Systems: As per HPI. Yes all other systems are reviewed and are negative Constitutional: Constitutional: Reports as per HPI PMF Past Medical History Medical History Anemia Surgical History History of tubal ligation Social History Social History Unable to assess alcohol history related to: Unknown Alcohol intake: never Patient Tobacco Use Status: Never used Tobacco Advance Directives: No Advance Directives Information Provided: Yes Physical Exam ED Vital Signs: Vital Signs - 24 hr 11/13/23 09:03 Temperature 98 F Pulse Rate 74 Respiratory Rate 19 Blood Pressure 113/69 Pulse Oximetry 99 Oxygen Delivery Method Room Air BMI result Body Mass Index 34.6 Vital signs have been reviewed and appear to be correct. Blood pressure normal. Heart rate normal. Respiratory rate normal. Temperature normal. Oxygen saturation normal. Const General: cooperative, healthy appearing and no acute distress Orientation/consciousness: oriented to person, oriented to place, oriented to time and patient oriented x3 Limitations: no limitations HENMT Head: Yes normocephalic and Yes atraumatic Ears: external ears normal, TM's normal bilaterally and EAC's normal General nose exam: Normal external nose present Face and sinus: Yes face symmetric Mouth: oropharynx normal and moist mucous membranes Throat: Yes uvula midline, Yes abnormal tonsil (erythema, no edema or exudate), No peritonsillar mass and No uvular edema Eyes Pupils: Equal, round and reactive pupils present Neck Neck: Yes normal visual inspection, Yes no lymphadenopathy and Yes supple Resp Effort & Inspection: normal respiratory effort and able to speak in complete sentences Auscultation: clear to auscultation bilaterally Cardio Rate: regular rate Rhythm: regular rhythm Heart sounds: S1 normal heart sound present and S2 normal heart sound present GI Palpation (GI): Soft to palpation and nontender Auscultation: normoactive bowel sounds General: Yes no CVA tenderness Back/Spine/Pelvis Back: no CVA tenderness Skin General skin exam: elasticity normal and turgor normal Neuro General: oriented to person, oriented to place, oriented to time, patient oriented x3, moves all extremities, no focal motor deficits and CN's II-XI intact bilaterally Cranial nerves: Yes Equal, round and reactive pupils present Cognition (Neuro): normal cognition Extrem General: Yes full ROM, Yes no pedal edema and Yes no calf tenderness Psych Mental Status: mental status grossly normal Affect: normal affect Thought process: Normal thought process present Medications Administered Discontinued Medications Generic Name Dose Route Start Last Admin Trade Name Lewis PRN Reason Stop Dose Admin Acetaminophen 975 mg 11/13/23 10:41 11/13/23 10:58 Acetaminophen 325 Mg Tablet PO 11/13/23 10:42 975 mg ONCE ONE Administration Ibuprofen 600 mg 11/13/23 10:41 11/13/23 10:57 Ibuprofen 600 Mg Tablet PO 11/13/23 10:42 600 mg ONCE ONE Administration Medical Decision Making Medical Decision Making [facility] Narrative: Patient is a 28-year-old Ethiopian-speaking female presenting to the emergency department with complaint of sore throat, headache, subjective fever and nausea since Friday. On exam patient is awake, A+Ox3, VS WNL, afebrile, normal neurological exam without focal deficits, physical exam findings as above. Given reported symptoms and physical exam findings, initial differential includes viral illness, COVID, flu, RSV, strep pharyngitis. Strep swab positive. Viral serology negative. Will treat patient with PCN VK, advised her she is still contagious until she has been on antibiotics for 24 hours, stressed the importance of completing full course even if symptoms improve, advised Tylenol and ibuprofen as needed for fever. Instructed patient follow-up with PCP. Return precautions discussed at bedside. Patient verbalized understanding of and agreement plan. Assessment, results, return precautions and plan discussed with agency owner at bedside. Differential Diagnosis Differential Diagnoses: The differential diagnosis associated with the presentation includes As per [facility]. Lab Data [facility] Lab Attestation statement: I reviewed the patient's lab results. As per [facility]. Labs: Lab Results 11/13/23 11/13/23 Range/Units 09:08 10:51 Influenza Type A (PCR) NEGATIVE (Negative) Influenza Type B (PCR) NEGATIVE (Negative) RSV RNA Qual (PCR) NEGATIVE (Negative) SARS-CoV-2 RNA (RT-PCR) NEGATIVE (Negative) S. pyogenes GrpA BERNIE Positive A (Negative) External Record Review External record reviewed: Inpatient record, Office record and Outpatient record Prescription Management I considered prescription management with: Antibiotic Discharge Plan Discharge Clinical Impression: Acute streptococcal pharyngitis Patient Disposition: Home, Self-Care Instructions: Pharyngitis (ED), Strep Throat (DC) Additional Instructions: You were evaluated in the emergency department today for a sore throat. Your strep swab was positive. You are being prescribed antibiotics, please complete the full course as prescribed even if your symptoms improve. You are contagious until you have taken the antibiotics for 24 hours. Be sure to drink adequate fluids. You can use Tylenol and ibuprofen per package directions as needed for discomfort. You can also gargle with warm salt water several times daily. Follow-up with your primary care provider this week. Return to the emergency department if you develop difficulty swallowing, worsening pain, shortness of breath, are unable to swallow your saliva, fever not improved with Tylenol/ibuprofen, or any other concerning symptoms. Prescriptions: New penicillin V potassium 500 mg tablet 500 mg PO BID 10 Days Qty: 20 0RF No Action ondansetron HCl 4 mg tablet 4 mg PO Q8H PRN (Reason: nausea and vomiting) Qty: 14 0RF omeprazole 40 mg capsule,delayed release(DR/EC) 40 mg PO DAILY Qty: 30 0RF ondansetron 4 mg tablet,disintegrating 4 mg PO Q6H PRN (Reason: nausea and vomiting) Qty: 7 0RF ferrous sulfate 325 mg (65 mg iron) tablet 325 mg PO BID fluticasone propionate 50 mcg/actuation spray,suspension 0 mcg intranasal medroxyprogesterone [Provera] 10 mg tablet 10 mg PO DAILY 10 Days Qty: 30 3RF Rx Instructions: start Provera 1 tablet daily from day 15-24 cyclically every months, day 1 being 1st day of menses terconazole 0.8 % cream 1 appful vaginal BEDTIME 3 Days Qty: 20 0RF ibuprofen 600 mg tablet 600 mg PO Q8H PRN (Reason: mild pain) diclofenac sodium 1 % gel topical BID Stand Alone Forms: Work/School Release Print Language: Ethiopian
[2023-11-13] MEDS: Ibuprofen 600 MG TABLET PO (10:57)
[2023-11-13] MEDS: Acetaminophen 325 MG TABLET 975 MG PO (10:58)
[2023-11-13 11:08] LABS: IDNOW Serial# 08D9AD1C; Strep A Nucleic Acid Positive (Negative)
[2023-11-13 11:56] VITALS: BP 120/76; PULSE 70; RESP 18; TEMP 36.8; O2SAT 98
== END 2023-11-13 11:57 | disposition home or self-care (01) ==
PROVIDERS: Registered Nurse Emergency; Emergency Provider Emergency Medicine; PCP Student in an Organized Health Care Education/Training Program
DX: J02.0 Streptococcal pharyngitis (principal); R50.9 Fever, unspecified; R51.9 Headache, unspecified; Z03.818 Encounter for observation for suspected exposure to other biological agents ruled out
CPT/HCPCS: 0241U; 87651; 99283; 99284

== ENCOUNTER 2024-01-13 08:49 | Outpatient (REF) | payer MEDICAID, SELFPAY ==
[2024-01-13 11:36] LABS: Hematocrit 34.9 % (37.0-47.0); Hemoglobin 11.3 g/dl (12.0-16.0); Mean Corpuscular HGB Conc 32.4 g/dl (31.0-35.0); Mean Corpuscular Hemoglobin 28.8 pg (27.0-33.0); Mean Corpuscular Volume 88.8 fL (80.0-98.0); Mean Platelet Volume 10.3 fL (9.4-12.3); Platelet Count 303 X10*3/uL (160-400); Red Blood Count 3.93 X10*6/uL (4.20-5.50); Red Cell Distribution Width 13.6 % (11.0-16.0); White Blood Count 8.8 X10*3/uL (4.8-10.8)
[2024-01-13 11:48] LABS: Estimated Average Glucose 91 mg/dL; Hemoglobin A1c % 4.8 % (<6.0)
[2024-01-13 12:06] LABS: Alanine Aminotransferase 11 U/L (0-31); Alkaline Phosphatase 82 U/L (39-117); Anion Gap 12 (12-20); Aspartate Amino Transferase 11 U/L (5-31); Bilirubin Total 0.4 mg/dL (0.0-1.0); Blood Urea Nitrogen 13 mg/dL (9-16); Calcium 9.3 mg/dL (8.4-10.2); Carbon Dioxide 22 mmol/L (22-29); Chloride 109 mmol/L (96-108); Cholesterol 167 mg/dL (<200); Estimated Glomerular Filt Rate > 60; Glucose Random 89 mg/dL (60-115); HDL Cholesterol 42 mg/dL (>40); Iron 153 mcg/dL (30-160); LDL Cholesterol Calculated 96 mg/dL (<100); Percent Iron Saturation 50 % (15-50); Potassium 3.8 mmol/L (3.3-5.1); Sodium 139 mmol/L (135-145); Total Iron Binding Capacity 306 mcg/dL (228-428); Total Protein 7.2 g/dL (6.5-8.0); Triglycerides 146 mg/dL (<150); Unsaturated Iron Binding 153 ug/dL
[2024-01-13 12:09] LABS: Ferritin 35 ng/mL (10-122); TSH reflex Free T4 0.69 uIU/mL (0.32-4.0)
[2024-01-14 04:41] LABS: Syphilis Screen Nonreactive (Nonreactive)
[2024-01-14 05:22] LABS: HBS Num1 13.85 mIU/mL (0-7.99); HBc Num1 0.16 S/CO (0.00-0.79); HBsAGNum1 0.39 S/CO (0.00-0.99); HIV AB/AG Nonreactive (Nonreactive); HIV Num 1 0.08 S/CO (0.00-0.99); Hepatitis B Core Antibody Nonreactive (Nonreactive); Hepatitis B Surface Antigen Negative (Negative); ~Hepatitis B Surface Antibody REACTIVE (Nonreactive); ~Hepatitis C Antibody Nonreactive (Nonreactive)
== END 2024-01-13 08:50 | disposition home or self-care (01) ==
LOC: HO.HHCL 08:49
PROVIDERS: Visit Provider Student in an Organized Health Care Education/Training Program
DX: Z00.00 Encounter for general adult medical examination without abnormal findings (principal); D64.9 Anemia, unspecified
CPT/HCPCS: 36415; 80053; 80061; 82728; 83036; 83540; 84443; 85027; 86704; 86706; 86780; 86803; 87340; 87389

== ENCOUNTER 2024-04-22 14:00 | Outpatient (AMB) | payer MEDICAID, SELFPAY ==
--- NOTE | 2024-04-22 14:07 | A.OFFVIS_ITS ---
Vital Signs 04/22/24 14:11 BP 108/72 Intake Visit Reasons: amenorrhea Intake Note: Occasional spotting when wiping Title Search Manager Required: Yes Title Search Manager Language: Ash Pit Worker Services: Title Search Manager Present (in person) Title Search Manager Name: TAM Winston Hyperbaric Welder Diver: Hyperbaric Welder Diver Present (Monica Lewis TAM) Accompanied by: Self / Same As Patient Allergies No Known Allergies Allergy (Verified 04/22/24 14:09) HPI Comments Details: Presenting with 3 months history of amenorrhea. The patient was taking cyclic Provera and discontinued it since January since then has been amenorrheic till today started to have spotting. No associated galactorrhea or hair growth PFSH Medical History Anemia Surgical History History of tubal ligation Social History Unable to assess alcohol history related to: Unknown Alcohol intake: never Patient Tobacco Use Status: Never used Tobacco Female Reproductive History Menstrual Duration of menses: 3-5 days Date of last menstrual period: 01/19/24 Review of Systems Const All systems reviewed & are unremarkable except as noted in HPI and below Physical Exam Vital Signs: Last Vital Signs BP 108/72 04/22/24 14:11 General: Yes no CVA tenderness External Female Exam: normal external appearance and normal appearance of the urethra Speculum Exam - Vagina: normal appearance of the vagina, normal palpation, no lesions and no masses Speculum Exam - Cervix: normal appearance of the cervix, normal palpation, no lesions, no masses and nontender Bimanual exam- vagina & uterus: normal bimanual exam, normal palpation, uterine size normal, normal palpation, uterine shape normal, No Cervical tenderness present and non-tender Bimanual Exam- Adnexa, other: normal adnexae Back/Spine/Pelvis Back: no CVA tenderness Assessment & Plan Assessment & Plan (1) Amenorrhea: Comment: With positive withdrawal bleed Code(s): N91.2 - Amenorrhea, unspecified Category: Medical Plan: Discussed with the patient the possible causes of amenorrhea including but not limited to anovulation, thyroid and prolactin disorders, , end organ problems (uterine synechiae), medication side effects and others. The workup includes to start with UPT if negative , which was done in the office and was negative . Explained to the patient that the next step will be followed by progesterone withdrawal test x 5 days, with since the patient had positive spotting today this will be considered as a + bleeding. Will order TSH, PRL and hCG quantitative, if negative then the diagnosis is anovulation. Instructions given the patient schedule a 2 week follow-up appointment. All questions answered, the patient verbalized understanding Orders: Orders TSH reflex Free T4 Today N91.2 - Amenorrhea, unspecified HCG Quantitative Today N91.2 - Amenorrhea, unspecified Prolactin Today N91.2 - Amenorrhea, unspecified Coding Level of Care Code Est Pt Level 3 (53139) Diagnoses Amenorrhea N91.2
[2024-04-22 14:11] VITALS: BP 108/72
== END 2024-04-22 14:30 | disposition home or self-care (01) ==
PROVIDERS: PCP Student in an Organized Health Care Education/Training Program; Visit Provider Obstetrics & Gynecology
DX: N91.2 Amenorrhea, unspecified (principal)
CPT/HCPCS: 99213

== ENCOUNTER 2024-04-22 14:00 | Outpatient (REF) | payer MEDICAID, SELFPAY ==
[2024-04-22 15:16] LABS: Hematocrit 33.9 % (37.0-47.0); Hemoglobin 11.4 g/dl (12.0-16.0); Mean Corpuscular HGB Conc 33.6 g/dl (31.0-35.0); Mean Corpuscular Hemoglobin 29.2 pg (27.0-33.0); Mean Corpuscular Volume 86.7 fL (80.0-98.0); Mean Platelet Volume 9.8 fL (9.4-12.3); Platelet Count 272 X10*3/uL (160-400); Red Blood Count 3.91 X10*6/uL (4.20-5.50); Red Cell Distribution Width 13.2 % (11.0-16.0); White Blood Count 9.4 X10*3/uL (4.8-10.8)
[2024-04-22 15:30] LABS: Iron 47 mcg/dL (30-160); Percent Iron Saturation 16 % (15-50); Total Iron Binding Capacity 290 mcg/dL (228-428); Unsaturated Iron Binding 243 ug/dL
[2024-04-22 15:45] LABS: HCG Quantitative < 2 mIU/mL; TSH reflex Free T4 0.73 uIU/mL (0.32-4.0)
[2024-04-22 15:46] LABS: Ferritin 42 ng/mL (10-122)
[2024-04-24 04:33] LABS: Prolactin 11.1 ng/mL
[2024-04-25 07:09] LABS: TS Negative Control Passed; TS Panel A 0; TS Panel B 0; TS Positive Control Passed; TSpotTB Negative (Negative)
== END 2024-04-22 14:01 | disposition home or self-care (01) ==
LOC: HO.LAB 14:00
PROVIDERS: PCP Student in an Organized Health Care Education/Training Program; Visit Provider Obstetrics & Gynecology
DX: N91.2 Amenorrhea, unspecified (principal); D50.9 Iron deficiency anemia, unspecified; Z11.1 Encounter for screening for respiratory tuberculosis
CPT/HCPCS: 36415; 82728; 83540; 84146; 84443; 84702; 85027; 86481; 99212

== ENCOUNTER 2024-05-03 00:03 | Emergency (ER) | payer MEDICAID, SELFPAY ==
[2024-05-03 00:07] VITALS: BP 118/70; PULSE 110; RESP 20; TEMP 36.8; O2SAT 100; BMI 34.7
[2024-05-03] MEDS: ondansetron HCL 4 MG/2 ML VIAL IVPUSH (00:24)
[2024-05-03] MEDS: 0.9 % Sodium Chloride 1,000 ML 999 ML IV (00:32)
[2024-05-03 01:09] LABS: Influenza A PCR NEGATIVE (Negative); Influenza B PCR NEGATIVE (Negative); Resp Syncy Virus RNA Qual PCR NEGATIVE (Negative); SARS COV2 PCR INHOUSE NEGATIVE (Negative)
[2024-05-03 02:27] VITALS: BP 115/69; PULSE 93; RESP 14; TEMP 37.1; O2SAT 99
--- NOTE | 2024-05-03 02:51 | PC.NURSE ---
pt states pain and nausea/vomiting has resolved after medication po trial performed pt states no nausea or vomiting after po liquids and saltine crackers pt awaiting to be seen by ed provider at this time denies new needs at this time
--- NOTE | 2024-05-03 03:48 | ED_ITS ---
HPI - Nausea/Vomiting/Diarrhea General Chief complaint: Nausea/Vomiting/Diarrhea Stated complaint: abdominal pain and nausea Time Seen by Provider: 05/03/24 03:42 Source: patient Mode of arrival: ambulatory Limitations: no limitations History of Present Illness ED Provider: Dr. Megan Lorenzo HPI Narrative: Patient comes to the emergency room complaining of nausea vomiting and diarrhea that started around 20:00 , couple of hours after eating [employer]. Patient states that she is the only 1 who got sick. Patient denies any significant abdominal pain. Denies any chest pain or shortness of breath. Related Data Home Medications ?Medication ?Instructions ?Recorded ?Confirmed ferrous sulfate 325 mg (65 mg 325 mg PO BID 10/15/22 iron) tablet fluticasone propionate 50 0 mcg intranasal 10/15/22 mcg/actuation nasal spray,suspension diclofenac sodium 1 % topical gel g topical BID 11/06/22 ibuprofen 600 mg tablet 600 mg PO Q8H PRN mild pain 11/06/22 Previous Rx's ?Medication ?Instructions ?Recorded ondansetron HCl 4 mg tablet 4 mg PO Q8H PRN nausea and 04/07/23 vomiting #14 tabs terconazole 0.8 % vaginal cream 1 appful vaginal BEDTIME 3 days 05/08/23 #20 grams omeprazole 40 mg capsule,delayed 40 mg PO DAILY #30 caps 10/01/23 release ondansetron 4 mg disintegrating 4 mg PO Q6H PRN nausea and 10/01/23 tablet vomiting #7 tabs penicillin V potassium 500 mg 500 mg PO BID 10 days #20 tabs 11/13/23 tablet medroxyprogesterone 10 mg tablet 10 mg PO DAILY 10 days #30 tabs 04/26/24 (Provera) loperamide 2 mg capsule 2 mg PO Q4H PRN loose stool #14 05/03/24 caps ondansetron 4 mg disintegrating 4 mg PO Q6H PRN nausea and 05/03/24 tablet vomiting #14 tabs Allergies Allergy/AdvReac Type Severity Reaction Status Date / Time No Known Allergies Allergy Verified 05/03/24 00:13 Review of Systems 2 Review of Systems: Constitutional : No Weight loss, No Fever, No Chills, No Night Sweats, No Fatigue, No Malaise ENT/Mouth : No Hearing loss, No Ear Pain, No Nasal Congestion, No Sinus Pain, No Hoarseness, No sore throat, No Rhinorrhea, No Swallowing Difficulty Eyes: No Eye Pain, No Swelling, No Redness, No Foreign Body, No Discharge, No Vision Changes Cardiovascular : No Chest Pain, No SOB, No Dyspnea on Exertion, No Orthopnea, No Edema, No Palpitations Respiratory : No Cough, No Sputum, No Wheezing, No Smoke Exposure, No Dyspnea Gastrointestinal : Complaining of nausea vomiting and diarrhea, No Constipation, No abdominal Pain, No Hematochezia, No Melena Genitourinary : no irregular bleeding, No Dysuria, No Urinary Frequency, No Hematuria, No Urinary Incontinence, No Urgency, No Flank Pain, No Urinary Flow Changes, No Hesitancy Musculoskeletal : No joint pain, No Myalgias, No Joint Swelling Skin : No Skin Lesions, No rash Neuro : No Weakness, No Numbness, No Paresthesias, No Loss of Consciousness, No Dizziness, No Headache Psych : No Anxiety/Panic, No Depression, No SI/HI/AH/VH, No Social Issues, Heme/Lymph: No Bruising, No Bleeding,No Lymphadenopathy Endocrine : No Polyuria, No Polydipsia, No Temperature Intolerance [facility] Past Medical History Medical History Anemia Surgical History History of tubal ligation Social History Social History Unable to assess alcohol history related to: Unknown Alcohol intake: never Patient Tobacco Use Status: Never used Tobacco Smoked in Last 30 Days: No Use of substances other than those prescribed or required for medical reasons: No Advance Directives: No Advance Directives Information Provided: Yes Patient : No Physical Exam 2 Vital Signs: Vital Signs: Last Vital Signs Temp 98.8 F 05/03/24 02:27 Pulse 93 05/03/24 02:27 Resp 14 05/03/24 02:27 BP 115/69 05/03/24 02:27 Pulse Ox 99 05/03/24 02:27 O2 Del Method Room Air 05/03/24 02:27 BMI result Body Mass Index 34.7 Const: Other: Appearance: Alert. Oriented X3. Uncomfortable, actively vomiting Eyes: Pupils equal, round and reactive to light. ENT: Pharynx normal. Neck: Normal inspection. Neck supple. No lymph nodes noted. No crepitus CVS: Normal heart rate and rhythm. Pulses normal. Normal S1 and S2 Respiratory: No respiratory distress. Breath sounds normal. No Wheezing. No rales Abdomen: Soft and nontender. Actively vomiting Skin: Skin warm and dry. Normal skin color. Normal skin turgor. Extremities: No lower extremity edema. No Lacerations. No Rash Neuro: Oriented X 3. No motor deficit. No sensory deficit. Moving all extremities. No slurred speech. CN 2 through 12 grossly intact Psych: calm, cooperative, normal affect Medications Administered Discontinued Medications Generic Name Dose Route Start Last Admin Trade Name Freq PRN Reason Stop Dose Admin Sodium Chloride 1,000 mls @ 999 mls/hr 05/03/24 00:15 05/03/24 02:00 Ns IV 05/03/24 01:15 Infused .Q1H1M SOHEILA Infusion Ondansetron HCl 4 mg 05/03/24 00:15 05/03/24 00:24 Ondansetron Hcl 4 Mg/2 Ml Vial IVPUSH 05/03/24 00:16 4 mg ONCE ONE Administration Medical Decision Making Medical Decision Making [facility] Narrative: My interpretation of labs: Patient's white blood cell count 14, likely reactive leukocytosis. Normal chemistry negative HCG, normal lipase and L FT -patient received IV fluids, Zofran, patient has not vomited or had any diarrhea, patient feels much better, tolerating well p.o. and liquids Differential Diagnosis Differential Diagnoses: The differential diagnosis associated with the presentation includes (Gastritis, gastroenteritis) Admission/Observation Consideration of admission/observation: Escalation of care including admission/observation considered (Given patient's initial presentation, observation was considered) Lab Data [facility] Lab Attestation statement: I reviewed the patient's lab results. 05/03/24 03:50 05/03/24 03:50 Labs: Lab Results 05/03/24 05/03/24 05/03/24 Range/Units 00:28 03:50 03:55 WBC 14.1 H (4.8-10.8) X10*3/uL RBC 4.07 L (4.20-5.50) X10*6/uL Hgb 11.8 L (12.0-16.0) g/dl Hct 35.5 L (37.0-47.0) % MCV 87.2 (80.0-98.0) fL MCH 29.0 (27.0-33.0) pg MCHC 33.2 (31.0-35.0) g/dl RDW 13.2 (11.0-16.0) % Plt Count 257 (160-400) X10*3/uL MPV 9.5 (9.4-12.3) fL Immature Gran % (Auto) 0.4 (0.0-0.4) % Neut % (Auto) 93.8 H (45-73) % Lymph % (Auto) 3.1 L (20-40) % [place] % (Auto) 2.4 (2-11) % Eos % (Auto) 0.1 (0-4) % Baso % (Auto) 0.2 (0-2) % Lymph # (Auto) 0.4 L (1.2-4.9) X10*3/uL [place] # (Auto) 0.3 (0.1-1.2) X10*3/uL Eos # (Auto) 0.0 (0.0-0.4) X10*3/uL Baso # (Auto) 0.0 (0.0-0.2) X10*3/uL Abs Immat Gran (auto) 0.06 H (0.00-0.03) X10*3/uL Absolute Neuts (auto) 13.2 H (2.0-8.3) x10*3/uL Absolute Nucleated RBC 0.000 (0.0-0.012) X10*3/uL Nucleated RBC % (auto) 0.0 (0.0-0.2) /100WBC Smear Tech's Comments VERIFIED Sodium 139 (135-145) mmol/L Potassium 4.2 (3.3-5.1) mmol/L Chloride 109 H (96-108) mmol/L Carbon Dioxide 21 L (22-29) mmol/L Anion Gap 13 (12-20) BUN 13 (9-16) mg/dL Creatinine 0.77 (0.5-1.4) mg/dL Estim Creat Clear Calc 107.8 Estimated GFR > 60 Random Glucose 139 H (60-115) mg/dL Calcium 8.3 L D (8.4-10.2) mg/dL Magnesium 1.9 (1.6-2.6) mg/dL Total Bilirubin 0.4 (0.0-1.0) mg/dL Direct Bilirubin 0.1 (0.0-0.5) mg/dL AST 27 (5-31) U/L ALT 18 (0-31) U/L Alkaline Phosphatase 88 (39-117) U/L Total Protein 7.3 (6.5-8.0) g/dL Albumin 4.0 (3.5-5.0) g/dL Lipase 10 (8-78) U/L Beta HCG, Quant < 2 mIU/mL Urine Color Yellow Urine Appearance Clear Urine pH 6.0 (5.0-9.0) Ur Specific [place] 1.025 (1.005-1.025) Urine Protein Negative (Neg-Trace) mg/dL Urine Glucose (UA) Negative (Negative) mg/dL Urine Ketones Negative (Negative) mg/dL Urine Blood Large (3+) H (Negative) Urine Nitrite Negative (Negative) Ur Leukocyte Esterase Negative (Negative) Urine RBC 6-10 H (0-2) /HPF Urine WBC 0-5 (0-5) /HPF Ur Squamous Epith Cells 6-10 (0-2) /HPF Urine Bacteria None Seen (None Seen) Hyaline Casts 0-2 (0-2) /LPF Influenza Type A (PCR) NEGATIVE (Negative) Influenza Type B (PCR) NEGATIVE (Negative) RSV RNA Qual (PCR) NEGATIVE (Negative) SARS-CoV-2 RNA (RT-PCR) NEGATIVE (Negative) Critical Care Time Critical Care Time Critical Care Time: Yes Total Critical Care Time: 35 Attestation: I have personally provided critical care time. Time includes review of lab data, radiology results, discussion with consultants, and monitoring for potential decompensation. Intervention performed as documented. Discharge Plan Discharge Clinical Impression: Nausea vomiting and diarrhea Patient Disposition: Home, Self-Care Instructions: Acute Nausea and Vomiting (ED), Acute Diarrhea (ED) Additional Instructions: Please follow-up with your primary care physician tomorrow. If you have any worsening or new symptoms, please return to the emergency room or call 911 Prescriptions: New ondansetron 4 mg tablet,disintegrating 4 mg PO Q6H PRN (Reason: nausea and vomiting) Qty: 14 0RF loperamide 2 mg capsule 2 mg PO Q4H PRN (Reason: loose stool) Qty: 14 0RF Rx Instructions: administer after each loose stool until symptoms controlled; do not exceed 8 mg per 24 hrs No Action medroxyprogesterone [Provera] 10 mg tablet 10 mg PO DAILY 10 Days Qty: 30 3RF Rx Instructions: start Provera 1 tablet daily from day 15-24 cyclically every months, day 1 being 1st day of menses ondansetron HCl 4 mg tablet 4 mg PO Q8H PRN (Reason: nausea and vomiting) Qty: 14 0RF omeprazole 40 mg capsule,delayed release(DR/EC) 40 mg PO DAILY Qty: 30 0RF ondansetron 4 mg tablet,disintegrating 4 mg PO Q6H PRN (Reason: nausea and vomiting) Qty: 7 0RF penicillin V potassium 500 mg tablet 500 mg PO BID 10 Days Qty: 20 0RF ferrous sulfate 325 mg (65 mg iron) tablet 325 mg PO BID fluticasone propionate 50 mcg/actuation spray,suspension 0 mcg intranasal terconazole 0.8 % cream 1 appful vaginal BEDTIME 3 Days Qty: 20 0RF ibuprofen 600 mg tablet 600 mg PO Q8H PRN (Reason: mild pain) diclofenac sodium 1 % gel topical BID Stand Alone Forms: Work/School Release Print Language: Nigerian
[2024-05-03 03:55] LABS: Basophils Percent Auto 0.2 % (0-2); Eosinophils Percent Auto 0.1 % (0-4); Hematocrit 35.5 % (37.0-47.0); Hemoglobin 11.8 g/dl (12.0-16.0); Imm Gran Abs Auto 0.06 X10*3/uL (0.00-0.03); Imm Gran Pct Auto 0.4 % (0.0-0.4); Lymphocytes Absolute Auto 0.4 X10*3/uL (1.2-4.9); Lymphocytes Percent Auto 3.1 % (20-40); MANUAL DIFF FLAG SCAN; Mean Corpuscular HGB Conc 33.2 g/dl (31.0-35.0); Mean Corpuscular Volume 87.2 fL (80.0-98.0); Mean Platelet Volume 9.5 fL (9.4-12.3); Monocytes Absolute Auto 0.3 X10*3/uL (0.1-1.2); Monocytes Percent Auto 2.4 % (2-11); Neutrophils Absolute Auto 13.2 x10*3/uL (2.0-8.3); Neutrophils Percent Auto 93.8 % (45-73); Platelet Count 257 X10*3/uL (160-400); Red Blood Count 4.07 X10*6/uL (4.20-5.50); Red Cell Distribution Width 13.2 % (11.0-16.0); SCAN SMEAR FLAG 1; White Blood Count 14.1 X10*3/uL (4.8-10.8)
[2024-05-03 04:03] LABS: Appearance Urine Clear; Color Urine Yellow; Glucose Urine UA Negative (Negative); Leukocyte Esterase Urine Negative (Negative); Nitrite Urine Negative (Negative); Specific Gravity - Urine 1.025 (1.005-1.025); UMIC TRIGGER UACC YES; Urine Blood Large (3+) (Negative); Urine Ketones Negative (Negative); Urine Protein Negative (Neg-Trace)
[2024-05-03 04:07] LABS: Bacteria Urine None Seen (None Seen); Hyaline Casts Urine 0-2 /LPF (0-2); WBC Urine 0-5 /HPF (0-5)
[2024-05-03 04:12] LABS: SLIDE REVIEW VERIFIED
[2024-05-03 04:16] LABS: Alanine Aminotransferase 18 U/L (0-31); Alkaline Phosphatase 88 U/L (39-117); Anion Gap 13 (12-20); Aspartate Amino Transferase 27 U/L (5-31); Bilirubin Direct 0.1 mg/dL (0.0-0.5); Bilirubin Total 0.4 mg/dL (0.0-1.0); Blood Urea Nitrogen 13 mg/dL (9-16); Calcium 8.3 mg/dL (8.4-10.2); Carbon Dioxide 21 mmol/L (22-29); Chloride 109 mmol/L (96-108); Creatinine Clr Calc Pharmacy 107.8; Estimated Glomerular Filt Rate > 60; Glucose Random 139 mg/dL (60-115); HCG Quantitative < 2 mIU/mL; Lipase 10 U/L (8-78); Magnesium 1.9 mg/dL (1.6-2.6); Potassium 4.2 mmol/L (3.3-5.1); Sodium 139 mmol/L (135-145); Total Protein 7.3 g/dL (6.5-8.0)
[2024-05-03 04:58] VITALS: BP 112/62; PULSE 86; RESP 16; TEMP 36.8; O2SAT 98
== END 2024-05-03 05:00 | disposition home or self-care (01) ==
PROVIDERS: Emergency Provider Emergency Medicine
DX: R11.2 Nausea with vomiting, unspecified (principal); R19.7 Diarrhea, unspecified; Z03.818 Encounter for observation for suspected exposure to other biological agents ruled out; Z79.899 Other long term (current) drug therapy
CPT/HCPCS: 0241U; 36415; 80048; 80076; 81001; 81003; 83690; 83735; 84702; 85025; 96361; 96374; 99284; J2405

== ENCOUNTER 2024-05-06 12:57 | Outpatient (AMB) | payer MEDICAID, SELFPAY ==
--- NOTE | 2024-05-06 12:59 | MHC.OFFVIS ---
Intake Visit Reasons: labs results Finance Intern Required: Yes Finance Intern Language: Wire Temperer Services: Finance Intern Present (in person) Finance Intern Name: TAM Winston Information Interpreted: non-clinical & clinical Livestock Farmers: Livestock Farmers Present (Monica TAM Appiah) Accompanied by: Self / Same As Patient Allergies No Known Allergies Allergy (Verified 05/06/24 12:59) HPI Comments Details: Presenting for follow-up. The patient had positive progesterone withdrawal test followed by normal TSH and prolactin [facility] Medical History Anemia Surgical History History of tubal ligation Social History Unable to assess alcohol history related to: Unknown Alcohol intake: never Patient Tobacco Use Status: Never used Tobacco Review of Systems Const All systems reviewed & are unremarkable except as noted in HPI and below Reports as per HPI and Reports no additional complaints GI Reports no additional complaints Reports no additional complaints Assessment & Plan Assessment & Plan (1) Amenorrhea: Comment: Anovulatory Code(s): N91.2 - Amenorrhea, unspecified Category: Medical Plan: Discussed with the patient the results of her amenorrhea workup, positive progesterone withdrawal test followed by negative TSH and prolactin, diagnosis anovulatory amenorrhea. Discussed with the patient the options of treatment including cyclic Provera versus control pills. All pros and cons risks and benefits of each were discussed with the patient, the patient decided to proceed with cyclic Provera. so a more detailed discussion re: Progesterone treatment including mechanism of action, benefits (regular menses, endometrial protection form unopposed estrogen and reduction in the risk of endometrial hyperplasia and/or cancer ...), risks (Thrombosis, mood changes, weight gain, breast soreness, ? increased breast ca, others). Instructions were given to use a back- up method for contraception since this is not a method control, take the medication 1 tablet daily starting day 15-24 and to schedule a 3 months follow-up appointment; patient verbalized understanding and agreed with the plan. Coding Level of Care Code Est Pt Level 3 (52116) Diagnoses Amenorrhea N91.2
== END 2024-05-06 13:15 | disposition home or self-care (01) ==
PROVIDERS: PCP Student in an Organized Health Care Education/Training Program; Visit Provider Obstetrics & Gynecology
DX: N91.2 Amenorrhea, unspecified (principal)
CPT/HCPCS: 99213

== ENCOUNTER → 2024-05-06 12:57 | Outpatient (BNVA) | payer MEDICAID, SELFPAY | PROVIDERS: PCP Student in an Organized Health Care Education/Training Program; Visit Provider Obstetrics & Gynecology | DX: N91.2 Amenorrhea, unspecified (principal) | CPT/HCPCS: 99212 ==

== ENCOUNTER 2024-08-11 01:40 | Emergency (ER) | payer MEDICAID, SELFPAY ==
[2024-08-11 01:45] VITALS: BP 117/79; PULSE 92; RESP 22; TEMP 36.7; O2SAT 98; BMI 31.1
[2024-08-11 01:52] LABS: MANUAL DIFF FLAG NO
[2024-08-11 01:53] LABS: Basophils Percent Auto 0.3 % (0-2); Eosinophils Absolute Auto 0.1 X10*3/uL (0.0-0.4); Eosinophils Percent Auto 1.1 % (0-4); Hematocrit 33.1 % (37.0-47.0); Hemoglobin 11.6 g/dl (12.0-16.0); Imm Gran Abs Auto 0.03 X10*3/uL (0.00-0.03); Imm Gran Pct Auto 0.3 % (0.0-0.4); Lymphocytes Absolute Auto 3.6 X10*3/uL (1.2-4.9); Lymphocytes Percent Auto 30.1 % (20-40); Mean Corpuscular Hemoglobin 29.6 pg (27.0-33.0); Mean Corpuscular Volume 84.4 fL (80.0-98.0); Mean Platelet Volume 9.9 fL (9.4-12.3); Monocytes Absolute Auto 0.8 X10*3/uL (0.1-1.2); Monocytes Percent Auto 6.4 % (2-11); Neutrophils Absolute Auto 7.4 x10*3/uL (2.0-8.3); Neutrophils Percent Auto 61.8 % (45-73); Platelet Count 273 X10*3/uL (160-400); Red Blood Count 3.92 X10*6/uL (4.20-5.50); Red Cell Distribution Width 12.7 % (11.0-16.0)
[2024-08-11 02:19] LABS: Alanine Aminotransferase 15 U/L (0-31); Albumin Level 4.1 g/dL (3.5-5.0); Alkaline Phosphatase 86 U/L (39-117); Anion Gap 15 (12-20); Aspartate Amino Transferase 16 U/L (5-31); Bilirubin Total 0.2 mg/dL (0.0-1.0); Blood Urea Nitrogen 12 mg/dL (9-16); Calcium 9.3 mg/dL (8.4-10.2); Carbon Dioxide 23 mmol/L (22-29); Chloride 109 mmol/L (96-108); Creatinine Clr Calc Pharmacy 101.7; Estimated Glomerular Filt Rate > 60; Glucose Random 91 mg/dL (60-115); Lipase 13 U/L (8-78); Potassium 3.7 mmol/L (3.3-5.1); Sodium 143 mmol/L (135-145); Total Protein 7.2 g/dL (6.5-8.0)
[2024-08-11] MEDS: ondansetron HCL 4 MG/2 ML VIAL IVPUSH (02:21)
[2024-08-11] MEDS: Famotidine/PF 20 MG/2 ML VIAL IVPUSH (02:21)
[2024-08-11] MEDS: 0.9 % Sodium Chloride 1,000 ML 999 ML IVCONT (02:22)
[2024-08-11 02:27] LABS: Appearance Urine Clear; Color Urine Yellow; Glucose Urine UA Negative (Negative); Leukocyte Esterase Urine Small (1+) (Negative); Nitrite Urine Negative (Negative); UMIC TRIGGER UACC YES; Urine Blood Negative (Negative); Urine Ketones Negative (Negative); Urine Protein Negative (Neg-Trace)
--- NOTE | 2024-08-11 02:35 | ED_ITS ---
HPI - Abdominal Pain General Chief Complaint: Abdominal Pain Stated Complaint: abd pain Time Seen by Provider: 08/11/24 02:30 Source: patient Mode of arrival: ambulatory Limitations: no limitations History of Present Illness ED Provider: Dr. Megan Lorenzo HPI narrative: Patient comes to the emergency room complaining of nausea and vomiting. Patient states that around 19:00 she needs something to eat, something with broccoli and cream. Patient believes that that might not have agreed with her. Around 01:00 tonight, patient woke up with the abdominal cramping nausea and vomiting. Patient denies diarrhea. Patient denies fever, denies URI or UTI symptoms. Related Data Home Medications ?Medication ?Instructions ?Recorded ?Confirmed ferrous sulfate 325 mg (65 mg 325 mg PO BID 10/15/22 iron) tablet fluticasone propionate 50 0 mcg intranasal 10/15/22 mcg/actuation nasal spray,suspension diclofenac sodium 1 % topical gel g topical BID 11/06/22 ibuprofen 600 mg tablet 600 mg PO Q8H PRN mild pain 11/06/22 Previous Rx's ?Medication ?Instructions ?Recorded ondansetron HCl 4 mg tablet 4 mg PO Q8H PRN nausea and 04/07/23 vomiting #14 tabs terconazole 0.8 % vaginal cream 1 appful vaginal BEDTIME 3 days 05/08/23 #20 grams omeprazole 40 mg capsule,delayed 40 mg PO DAILY #30 caps 10/01/23 release ondansetron 4 mg disintegrating 4 mg PO Q6H PRN nausea and 10/01/23 tablet vomiting #7 tabs penicillin V potassium 500 mg 500 mg PO BID 10 days #20 tabs 11/13/23 tablet medroxyprogesterone 10 mg tablet 10 mg PO DAILY 10 days #30 tabs 04/26/24 (Provera) loperamide 2 mg capsule 2 mg PO Q4H PRN loose stool #14 05/03/24 caps ondansetron 4 mg disintegrating 4 mg PO Q6H PRN nausea and 05/03/24 tablet vomiting #14 tabs ondansetron 4 mg disintegrating 4 mg PO Q6H PRN nausea and 08/11/24 tablet vomiting #14 tabs Allergies Allergy/AdvReac Type Severity Reaction Status Date / Time No Known Allergies Allergy Verified 08/11/24 01:47 Review of Systems Review of Systems Constitutional : No Weight loss, No Fever, No Chills, No Night Sweats, No Fatigue, No Malaise ENT/Mouth : No Hearing loss, No Ear Pain, No Nasal Congestion, No Sinus Pain, No Hoarseness, No sore throat, No Rhinorrhea, No Swallowing Difficulty Eyes: No Eye Pain, No Swelling, No Redness, No Foreign Body, No Discharge, No Vision Changes Cardiovascular : No Chest Pain, No SOB, No Dyspnea on Exertion, No Orthopnea, No Edema, No Palpitations Respiratory : No Cough, No Sputum, No Wheezing, No Smoke Exposure, No Dyspnea Gastrointestinal : Complaining of nausea and vomiting No Diarrhea, No Constipation, No abdominal Pain, No Hematochezia, No Melena Genitourinary : no irregular bleeding, No Dysuria, No Urinary Frequency, No Hematuria, No Urinary Incontinence, No Urgency, No Flank Pain, No Urinary Flow Changes, No Hesitancy Musculoskeletal : No joint pain, No Myalgias, No Joint Swelling Skin : No Skin Lesions, No rash Neuro : No Weakness, No Numbness, No Paresthesias, No Loss of Consciousness, No Dizziness, No Headache Psych : No Anxiety/Panic, No Depression, No SI/HI/AH/VH, No Social Issues, Heme/Lymph: No Bruising, No Bleeding,No Lymphadenopathy Endocrine : No Polyuria, No Polydipsia, No Temperature Intolerance [facility] Past Medical History Medical History Anemia Surgical History History of tubal ligation Social History Social History Unable to assess alcohol history related to: Unknown Alcohol intake: never Patient Tobacco Use Status: Never used Tobacco Smoked in Last 30 Days: No Use of substances other than those prescribed or required for medical reasons: No Advance Directives: No Do you have a plan to hurt others: No Plan Physical Exam ED Vital Signs: Vital Signs - 24 hr 08/11/24 01:45 Temperature 98.0 F Pulse Rate 92 Respiratory Rate 22 H Blood Pressure 117/79 Pulse Oximetry 98 Oxygen Delivery Method Room Air BMI result Body Mass Index 31.1 Const Other: Appearance: Alert. Oriented X3. No acute distress. Well-appearing Eyes: Pupils equal, round and reactive to light. ENT: Pharynx normal. Neck: Normal inspection. Neck supple. No lymph nodes noted. No crepitus CVS: Normal heart rate and rhythm. Pulses normal. Normal S1 and S2 Respiratory: No respiratory distress. Breath sounds normal. No Wheezing. No rales Abdomen: Soft and nontender. No rigidity. No distention. Skin: Skin warm and dry. Normal skin color. Normal skin turgor. Extremities: No lower extremity edema. No Lacerations. No Rash Neuro: Oriented X 3. No motor deficit. No sensory deficit. Moving all extremities. No slurred speech. CN 2 through 12 grossly intact Psych: calm, cooperative, normal affect Course Course Course Narrative: Patient receiving IV fluids, Zofran and Pepcid. Medical Decision Making Medical Decision Making [facility] Narrative: My interpretation of labs: Patient's white blood cell count 12.0, rest of hematology at baseline. Likely reactive leukocytosis. Chemistry within normal limits. LFTs within normal limits. Urinalysis negative, hCG negative I considered ordering a CT scan of the abdomen. However, on physical exam, it was unremarkable. Patient states that after the above-mentioned medications she feels better. No pain to palpation, vitals stable Differential Diagnosis Differential Diagnoses: The differential diagnosis associated with the presentation includes (Gastritis, gastroenteritis, colitis, enteritis) Admission/Observation Consideration of admission/observation: Escalation of care including admission/observation considered (Given patient's symptoms on initial presentation, admission was considered) Lab Data [facility] Lab Attestation statement: I reviewed the patient's lab results. 08/11/24 01:47 08/11/24 01:47 Labs: Lab Results 08/11/24 08/11/24 Range/Units 01:47 02:20 WBC 12.0 H (4.8-10.8) X10*3/uL RBC 3.92 L (4.20-5.50) X10*6/uL Hgb 11.6 L (12.0-16.0) g/dl Hct 33.1 L (37.0-47.0) % MCV 84.4 (80.0-98.0) fL MCH 29.6 (27.0-33.0) pg MCHC 35.0 (31.0-35.0) g/dl RDW 12.7 (11.0-16.0) % Plt Count 273 (160-400) X10*3/uL MPV 9.9 (9.4-12.3) fL Immature Gran % (Auto) 0.3 (0.0-0.4) % Neut % (Auto) 61.8 (45-73) % Lymph % (Auto) 30.1 (20-40) % [place] % (Auto) 6.4 (2-11) % Eos % (Auto) 1.1 (0-4) % Baso % (Auto) 0.3 (0-2) % Lymph # (Auto) 3.6 (1.2-4.9) X10*3/uL [place] # (Auto) 0.8 (0.1-1.2) X10*3/uL Eos # (Auto) 0.1 (0.0-0.4) X10*3/uL Baso # (Auto) 0.0 (0.0-0.2) X10*3/uL Abs Immat Gran (auto) 0.03 (0.00-0.03) X10*3/uL Absolute Neuts (auto) 7.4 (2.0-8.3) x10*3/uL Absolute Nucleated RBC 0.000 (0.0-0.012) X10*3/uL Nucleated RBC % (auto) 0.0 (0.0-0.2) /100WBC Sodium 143 (135-145) mmol/L Potassium 3.7 (3.3-5.1) mmol/L Chloride 109 H (96-108) mmol/L Carbon Dioxide 23 (22-29) mmol/L Anion Gap 15 (12-20) BUN 12 (9-16) mg/dL Creatinine 0.77 (0.5-1.4) mg/dL Estim Creat Clear Calc 101.7 Estimated GFR > 60 Random Glucose 91 (60-115) mg/dL Calcium 9.3 D (8.4-10.2) mg/dL Total Bilirubin 0.2 (0.0-1.0) mg/dL AST 16 (5-31) U/L ALT 15 (0-31) U/L Alkaline Phosphatase 86 (39-117) U/L Total Protein 7.2 (6.5-8.0) g/dL Albumin 4.1 (3.5-5.0) g/dL Lipase 13 (8-78) U/L Beta HCG, Quant < 2 mIU/mL Urine Color Yellow Urine Appearance Clear Urine pH 8.0 (5.0-9.0) Ur Specific [place] 1.020 (1.005-1.025) Urine Protein Negative (Neg-Trace) mg/dL Urine Glucose (UA) Negative (Negative) mg/dL Urine Ketones Negative (Negative) mg/dL Urine Blood Negative (Negative) Urine Nitrite Negative (Negative) Ur Leukocyte Esterase Small (1+) H (Negative) Urine RBC 0-2 (0-2) /HPF Urine WBC 0-5 (0-5) /HPF Ur Squamous Epith Cells 11-20 (0-2) /HPF Urine Bacteria None Seen (None Seen) Hyaline Casts 0-2 (0-2) /LPF Medications Administered Generic Name Dose Route Start Last Admin Trade Name Freq PRN Reason Stop Dose Admin Sodium Chloride 1,000 mls @ 999 mls/hr 08/11/24 02:14 08/11/24 02:22 Ns IVCONT 08/11/24 03:14 999 mls/hr .Q1H1M ONE Administration Discontinued Medications Generic Name Dose Route Start Last Admin Trade Name Freq PRN Reason Stop Dose Admin Famotidine 20 mg 08/11/24 02:14 08/11/24 02:21 Famotidine/Pf 20 Mg/2 Ml Vial IVPUSH 08/11/24 02:15 20 mg ONCE ONE Administration Ondansetron HCl 4 mg 08/11/24 01:57 08/11/24 02:21 Ondansetron Hcl 4 Mg/2 Ml Vial IVPUSH 08/11/24 01:58 4 mg ONCE ONE Administration Critical Care Time Critical Care Time Critical Care Time: Yes Total Critical Care Time: 45 Attestation: I have personally provided critical care time. Time includes review of lab data, radiology results, discussion with consultants, and monitoring for potential decompensation. Intervention performed as documented. Discharge Plan Discharge Clinical Impression: Nausea & vomiting, Food poisoning Patient Disposition: Home, Self-Care Instructions: Acute Nausea and Vomiting (ED), Food Poisoning (ED) Additional Instructions: Please follow-up with your primary care physician tomorrow. If you have any worsening or new symptoms, please return to the emergency room or call 911 Prescriptions: New ondansetron 4 mg tablet,disintegrating 4 mg PO Q6H PRN (Reason: nausea and vomiting) Qty: 14 0RF No Action medroxyprogesterone [Provera] 10 mg tablet 10 mg PO DAILY 10 Days Qty: 30 3RF Rx Instructions: start Provera 1 tablet daily from day 15-24 cyclically every months, day 1 being 1st day of menses ondansetron HCl 4 mg tablet 4 mg PO Q8H PRN (Reason: nausea and vomiting) Qty: 14 0RF omeprazole 40 mg capsule,delayed release(DR/EC) 40 mg PO DAILY Qty: 30 0RF ondansetron 4 mg tablet,disintegrating 4 mg PO Q6H PRN (Reason: nausea and vomiting) Qty: 7 0RF penicillin V potassium 500 mg tablet 500 mg PO BID 10 Days Qty: 20 0RF ondansetron 4 mg tablet,disintegrating 4 mg PO Q6H PRN (Reason: nausea and vomiting) Qty: 14 0RF loperamide 2 mg capsule 2 mg PO Q4H PRN (Reason: loose stool) Qty: 14 0RF Rx Instructions: administer after each loose stool until symptoms controlled; do not exceed 8 mg per 24 hrs ferrous sulfate 325 mg (65 mg iron) tablet 325 mg PO BID fluticasone propionate 50 mcg/actuation spray,suspension 0 mcg intranasal terconazole 0.8 % cream 1 appful vaginal BEDTIME 3 Days Qty: 20 0RF ibuprofen 600 mg tablet 600 mg PO Q8H PRN (Reason: mild pain) diclofenac sodium 1 % gel topical BID Stand Alone Forms: Work/School Release Print Language: Mauritanian
[2024-08-11 02:41] LABS: Bacteria Urine None Seen (None Seen); Hyaline Casts Urine 0-2 /LPF (0-2); RBC Urine 0-2 /HPF (0-2); UACC Culture Trigger YES; WBC Urine 0-5 /HPF (0-5)
[2024-08-11 03:03] LABS: HCG Quantitative < 2 mIU/mL
[2024-08-11] MEDS: Ketorolac Tromethamine 30 MG/ML VIAL IVPUSH (03:18)
[2024-08-11 03:56] VITALS: BP 109/63; PULSE 95; RESP 16; TEMP 36.7; O2SAT 98
== END 2024-08-11 04:03 | disposition home or self-care (01) ==
PROVIDERS: Emergency Provider Emergency Medicine; PCP Student in an Organized Health Care Education/Training Program
DX: R11.2 Nausea with vomiting, unspecified (principal); A05.9 Bacterial foodborne intoxication, unspecified
CPT/HCPCS: 36415; 80053; 81001; 83690; 84702; 85025; 87086; 96361; 96374; 96375; 99284; 99285; J1885; J2405

== ENCOUNTER 2024-08-12 13:32 | Outpatient (REF) | payer MEDICAID, SELFPAY ==
[2024-08-12 17:01] LABS: Bacterial Vaginosis PCR NEGATIVE (Negative); Candida Group PCR DETECTED (Not Detect); Candida glab krusei PCR NOT DETECTED (Not Detect); Trichomonas vaginalis PCR NOT DETECTED (Not Detect)
[2024-08-12 17:29] LABS: CT PCR NOT DETECTED (Not Detect.); NG PCR NOT DETECTED (Not Detect.)
== END 2024-08-12 13:33 | disposition home or self-care (01) ==
LOC: HO.LNP 13:32
PROVIDERS: PCP Student in an Organized Health Care Education/Training Program; Visit Provider Obstetrics & Gynecology
DX: R10.2 Pelvic and perineal pain (principal); Z32.02 Encounter for pregnancy test, result negative; N76.0 Acute vaginitis; N93.9 Abnormal uterine and vaginal bleeding, unspecified
CPT/HCPCS: 81025; 81515; 87491; 87591; 99212

== ENCOUNTER 2024-08-12 13:32 | Outpatient (AMB) | payer MEDICAID, SELFPAY ==
--- NOTE | 2024-08-12 13:52 | A.OFFVIS_ITS ---
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 The patient is has been taking Provera day 15-24 over the last 3 months and it has been having regular menstrual cycles. The patient is complaining today of bilateral pelvic pain associated with burning on urination, no urinary frequency . In addition the patient is complaining of vulvovaginal discharge associated with PFSH Medical History Anemia Surgical History History of tubal ligation Social History Unable to assess alcohol history related to: Unknown Alcohol intake: never Patient Tobacco Use Status: Never used Tobacco Review of Systems Const All systems reviewed & are unremarkable except as noted in HPI and below Physical Exam Vital Signs: Last Vital Signs BP 120/68 08/12/24 13:58 BMI result Body Mass Index 31.1 General: Yes no CVA tenderness External Female Exam: normal external appearance and normal appearance of the urethra Speculum Exam - Vagina: normal appearance of the vagina, normal palpation, no lesions and no masses Speculum Exam - Cervix: normal appearance of the cervix, normal palpation, no lesions, no masses and nontender Bimanual exam- vagina & uterus: normal bimanual exam, normal palpation, uterine size normal, normal palpation, uterine shape normal, No Cervical tenderness present and non-tender Bimanual Exam- Adnexa, other: normal adnexae Back/Spine/Pelvis Back: no CVA tenderness Results AMB Test Urine AMB Test Urine Negative Last Edit by Monica Appiah CMA on 14:06 Results Reviewed Results Reviewed: Laboratory Last Values [facility] Clinic Negative 08/12/24 14:05 Assessment & Plan Assessment & Plan (1) Abnormal uterine bleeding: Comment: Resolved on cyclic Provera Code(s): N93.9 - Abnormal uterine and vaginal bleeding, unspecified Category: Medical Plan: Provera 10 mg p.o. q.d. day 15-24 refill sent to the patient's pharmacy. (2) Pelvic pain: Code(s): R10.2 - Pelvic and perineal pain Category: Medical Plan: Urine dip and test done in the office were both negative. GC and chlamydia taken and pelvic ultrasound ordered. Discussed with the patient the differential diagnosis of pelvic pain including but not limited to adnexal, uterine masses, pelvic infections (PID), GI the (Irritable bowel syndrome, diverticulitis, others), musculoskeletal, myofascial pain abdominal wall , adhesions, endometriosis, psychological and others causes. Will check results and treat accordingly. All questions answered, the patient verbalized understanding. Instructed the patient to schedule an ultrasound and a follow-up appointment in 2 weeks. All questions answered, the patient verbalized understanding and agreed with the plan. (3) Vulvovaginitis: Code(s): N76.0 - Acute vaginitis Category: Medical Plan: GC/CT, Bacterial Vaginosis panel taken, Terazol 0.8% q.h.s. for 3 days was sent to the patient's pharmacy. The patient was instructed to call if symptoms don't improve in 48 hours. Orders: Orders AMB HCG Urine Test Today R10.2 - Pelvic and perineal pain, Z32.02 - Encounter for test, result negative CT NG by PCR Today R10.2 - Pelvic and perineal pain, Z32.02 - Encounter for test, result negative US pelvic and transvaginal Today R10.2 - Pelvic and perineal pain Bacterial Vaginosis Panel Today R10.2 - Pelvic and perineal pain, Z32.02 - Encounter for test, result negative Medications: New terconazole 0.8% 1 appful vaginal BEDTIME 20 grams 0RF 3 days Refilled medroxyprogesterone (Provera) start Provera 1 tablet daily from day 15-24 cyclically every months, day 1 being 1st day of menses 10 mg PO DAILY 30 tabs 3RF 10 days Coding Level of Care Code Est Pt Level 3 (81546) Diagnoses Abnormal uterine bleeding N93.9 Pelvic pain R10.2 Vulvovaginitis N76.0
[2024-08-12 13:58] VITALS: BP 120/68; BMI 31.1
--- OUTSIDE RECORDS SUMMARY | 2024-08-12 16:55 | XMS_ITS | Encounter Summary ---
Author Organization [employer] Address [address] [facility] [address] [facility] 7[address] [place] [address] Care Team Providers Care Sales & Service Associate Name Role Phone Lorena Rendon MD Primary Care Pro vider Reason for Visit * Reason Comments Med Refill Encounter Details Date Type Department Care Team ([facility] st Contact Info) Description 07/22/2024 Refill [facility] [address] [place] [address] Lorena Rendon MD [address] [place] [address] Social History Tobacco Use Types Packs/Day Years Used Date Smoking Tobacco: Never Passive Smoke Exposure: Never Smokeless Tobacco: Never Alcohol Use Standard Drinks/Week Comments Yes 0 (1 standard drink = 0.6 oz pur e alcohol) social Depression Answer Date Recorded Patient Health Questionnaire-9 Score 0 10/16/2023 Patient Health Questionnaire-9 Score 0 10/16/2023 Last PHQ-9: Questionnaire Data Not on file 0 10/16/2023 Housing Stability Answer Date Recorded What is your housing situation today? I have robert beyer 03/19/[address] you li ve. Do you have problems with any of the following? None of the above 03/19/2023 Food Insecurity Answer Date Recorded Within the past 12 months, y ou worried that your food would run out before you got money to buy more: Sometimes True 2023 Within the past 12 months,th e food you bought just didn't last and you didn't have enough money to get more: Sometimes True 08/06/2023 Transportation Answer Date Recorded In the past 12 months, has l ack of transportation kept you from medical appts, meetings, work or from getting things needed for daily living? No 03/19/2023 Utilities Answer Date Recorded In the past 12 months, has t he electric, gas, oil or water company threatened to shut off services in your home? No 03/19/2023 Depression Answer Date Recorded Patient Health Questionnaire-2 Score 0 10/16/2023 Comments Unknown Sex and Gender Information Value Date Recorded Sex Assigned at Female 03/18/2022 10:40 AM EDT Legal Sex Female 10:40 AM EDT Gender Identity Female 03/18/2022 10:40 AM EDT Sexual Orientation Straight 12/17/2022 10 :43 AM EDT documented as of this encounter Plan of Treatment Upcoming Encounters Date Type Department Care Team (Late st Contact Info) Description 10/28/2024 9:00 AM EDT Office Visit [facility] [address] [place] [phone] Lorena Rendon MD [address] [place] [phone] documented as of this encounter Visit Diagnoses Not on filedocumented in this encounter Additional Health Concerns Assessment Noted Time PHQ-9 Depression Total Score: 0 10/16/19 24 10:59 AM EDT documented as of this encounter Care Teams Sales & Service Associate Relationship Specialty Start Date End Date Lorena Rendon MD [address] [place] [phone] PCP - General Internal Medicine 10/25/22 documented as of this encounter
--- OUTSIDE RECORDS SUMMARY | 2024-08-12 16:55 | XMS_ITS | Encounter Summary ---
Author Organization [employer] Address [address] 7[address] [place] [address] Care Team Providers Care Library Media Technician Name Role Phone Lorena Rendon MD Primary Care Pro vider Encounter Details Date Type Department Care Team (Latest Contact Info) Description 07/26/2024 Travel Social History Tobacco Use Types Packs/Day Years [...] is your housing situation today? I have robertsilvano beyer 03/19/[address] you [...] Description 10/28/2024 9:00 AM EDT Office Visit [facility] [address] [place] [address] Lorena Rendon MD [address] [place], [place] [phone] documented as of this encounter Visit Diagnoses Not on filedocumented in this encounter Additional Health Concerns Assessment Noted Time PHQ-9 Depression Total Score: 0 10/16/19 24 10:59 AM EDT documented as of this encounter Care Teams Library Media Technician Relationship Specialty Start Date End Date Lorena Rendon MD [address] [place] [address] PCP - General Internal Medicine 10/25/22 documented as of this encounter
--- OUTSIDE RECORDS SUMMARY | 2024-08-12 16:55 | XMS_ITS | Encounter Summary ---
Author Organization [email or web address] Address [address] [place] [address] Care Team Providers Care Compliance Spec Name Role Phone Lorena Rendon MD Primary Care Pro vider Encounter Details Date Type Department Care Team (Late st Contact Info) Description 08/11/2024 Orders Only GENERIC EXTERNAL DATA DEPARTMENT Provider, Generic External Data Social History Tobacco Use Types Packs/Day Years [...] Description 10/28/2024 9:00 AM EDT Office Visit [facility] [address] [place] [address] [phone] Lorena Rendon MD [address] [place], [place] [phone] documented as of this encounter Procedures Procedure Name Priority Date/Time Associated Diagnosis Comments URINALYSIS, COMPLETE, WITH REFLEX TO CULTURE Routine 08/11/2024 2:20 AM EDT CBC WITH AUTO DIFFERENTIAL Routine 08/11/2024 1:47 AM EDT LIPASE Routine 08/11/2024 1:47 AM EDT COMPREHENSIVE METABOLIC PANEL Routine 08/11/2024 1:47 AM EDT CULTURE, URINE, ROUTINE Routine 08/11/2024 12:00 AM EDT documented in this encounter Results * (ABNORMAL) Urinalysis, Complete, with Reflex to Culture (08/11/2024 2:20 AM EDT) Color Urine Yellow [facility] Appearance Urine Clear [facility] PH 8.0 5.0 - 9.0 [facility] Glucose Urine UA Negative Negative mg/dL [facility] Urine Blood Negative Negative [facility] Specific [place] - Urine 1.020 1.005 - 1.025 [facility] Urine Protein Negative Neg-Trace mg/dL [facility] Urine Ketones Negative Negative mg/dL [facility] Nitrite Urine Negative Negative [facility] Leukocyte Esterase Urine Small (1+)(A) Negative [facility] RBC Urine 0-2 0 - 2 /HPF [facility] Urine WBC 0-5 0 - 5 /HPF [facility] Urine Squamous Epithelial Cell 11-20 0 - 2 /HPF [facility] Urine Bacteria None Seen None Seen [facility] Hyaline Casts, Urine 0-2 0 - 2 /LPF [facility] 08/11/2024 2:20 AM EDT 08/11/2024 2:24 AM EDT Narrative [facility] - 08/11/2024 2:42 AM EDT Urine, Clean Catch us Generic External Data Provider LAB URINE ORDERAB LES Final Result Performing Organization Address [facility]/ZIP Co de Phone Number [facility] [address] [place] [phone] * Lipase (08/11/2024 1:47 AM EDT) Lipase 13 8 - 78 U/L [facility] 08/11/2024 1:47 AM EDT 08/11/2024 1:51 AM EDT us Generic External Data Provider LAB BLOOD ORDERAB LES Final Result Performing Organization Address [facility] Co de Phone Number [facility] [address] [place] [phone] * (ABNORMAL) Comprehensive Metabolic Panel (08/11/2024 1:47 AM EDT) Sodium 143 135 - 145 mmol/L [facility] Potassium 3.7 3.3 - 5.1 mmol/L [facility] Chloride 109(H) 96 - 108 mmol/L [facility] Carbon Dioxide 23 22 - 29 mmol/L [facility] Anion Gap 15 12 - 20 [facility] Urea Nitrogen (BUN) 12 9 - 16 mg/dL [facility] Creatinine, Serum 0.77 0.5 - 1.4 mg/dL [facility] Creatinine Clr Calc Pharmacy 101.7 [facility] Comment:Provided height and weight: 157.48 cm,77.111 kg.eGFR (calculated from the MDRD study equation) and eCrCl(calculated from the Cockcroft-Gault equation) are based ondifferent parameters and may not yield comparable results.If eCrCl result is absurd, please check patient'sheight/weight. Estimated Glomerular Filt Rate >60 [facility] Comment:Chronic Kidney Disea se: Estimated GFR < 60 mL/min/[id number] Kidney Disease: Estimated GFR < 15 mL/min/1.73m2 Glucose 91 60 - 115 mg/dL [facility] Calcium 9.3 8.4 - 10.2 mg/dL [facility] Bilirubin, Total 0.2 0.0 - 1.0 mg/dL [facility] Aspartate Amino Transferase 16 5 - 31 U/L [facility] Alanine Aminotransferase 15 0 - 31 U/L [facility] Total Protein 7.2 6.5 - 8.0 g/dL [facility] Albumin Level 4.1 3.5 - 5.0 g/dL [facility] Alkaline Phosphatase 86 39 - 117 U/L [facility] 08/11/2024 1:47 AM EDT 08/11/2024 1:51 AM EDT us Generic External Data Provider LAB BLOOD ORDERAB LES Final Result [facility] [address] [place], [place] [phone] * (ABNORMAL) CBC auto differential (08/11/2024 1:47 AM EDT) White Blood Count 12.0(H) 4.8 - 10.8 X10*3/uL [facility] Red Blood Count 3.92(L) 4.20 - 5.50 X10*6/uL [facility] Hemoglobin 11.6(L) 12.0 - 16.0 g/dl [facility] Hematocrit 33.1(L) 37.0 - 47.0 % [facility] Mean Corpuscular Volume 84.4 80.0 - 98.0 fL [facility] Mean Corpuscular Hemoglobin 29.6 27.0 - 33.0 pg [facility] Mean Corpuscular HGB Conc 35.0 31.0 - 35.0 g/dl [facility] Red Cell Distribution Width 12.7 11.0 - 16.0 % [facility] Platelet Count 273 160 - 400 X10*3/uL [facility] Mean Platelet Volume 9.9 9.4 - 12.3 fL [facility] Neutrophils Percent Auto 61.8 45 - 73 % [facility] Imm Gran Pct Auto 0.3 0.0 - 0.4 % [facility] Lymphocytes Percent Auto 30.1 20 - 40 % [facility] Monocytes Percent Auto 6.4 2 - 11 % [facility] Eosinophils Percent Auto 1.1 0 - 4 % [facility] Basophils Percent Auto 0.3 0 - 2 % [facility] NRBC Pct Auto 0.0 0.0 - 0.2 /100WBC [facility] Neutrophils Absolute Auto 7.4 2.0 - 8.3 x10*3/uL [facility] Imm Gran Abs Auto 0.03 0.00 - 0.03 X10*3/uL [facility] Lymphocytes Absolute Auto 3.6 1.2 - 4.9 X10*3/uL [facility] Monocytes Absolute Auto 0.8 0.1 - 1.2 X10*3/uL [facility] Eosinophils Absolute Auto 0.1 0.0 - 0.4 X10*3/uL [facility] Basophils Absolute Auto 0.0 0.0 - 0.2 X10*3/uL [facility] NRBC Abs Auto 0.000 0.0 - 0.012 X10*3/uL [facility] 08/11/2024 1:47 AM EDT 08/11/2024 1:51 AM EDT us Generic External Data Provider LAB BLOOD ORDERAB LES Final Result Performing Organization Address [facility]/ZIP Co de Phone Number [facility] [address] [place] [phone] * Culture, Urine, Routine (08/11/2024 12:00 AM EDT) Urine Urine specimen obtained by clean catch procedure / Unknown 08/11/2024 08/11/2024 Comment:[facility]ACC Narrative [facility] - 08/12/2024 11:25 AM EDT Urine Culture Report Result Urine Culture < 10,000 cfu/ml Specimen Source: Urine clean catch us Generic External Data Provider LAB MICROBIOLOGY - GENERAL ORDERABLES Final Result Performing Organization Address [facility] Co de Phone Number [facility] [address] [place] [phone] documented in this encounter Visit Diagnoses Not on filedocumented in this encounter Additional Health Concerns Assessment Noted Time PHQ-9 Depression Total Score: 0 10/16/19 24 10:59 AM EDT documented as of this encounter Care Teams Compliance Spec Relationship Specialty Start Date End Date Lorena Rendon MD [address] [place] [address] PCP - General Internal Medicine 10/25/22 documented as of this encounter
--- OUTSIDE RECORDS SUMMARY | 2024-08-12 16:55 | XMS_ITS | Encounter Summary ---
Author Organization [employer] Address [address] [facility] [address] [place] [address] Care Team Providers Care Financial Service Rep Name Role Phone Lorena Rendon MD Primary Care Pro vider Encounter Details Date Type Department Care Team ([facility] st Contact Info) Description 07/30/2024 Population Health Risk Score [facility] (C3) Department [address] [facility] [address] [place] [phone] Provider, Population Health Generic Social History Tobacco Use Types Packs/Day Years [...] Description 10/28/2024 9:00 AM EDT Office Visit [facility] [address] [place] [phone] Lorena Rendon MD [address] [place] [phone] documented as of this encounter Visit Diagnoses Not on filedocumented in this encounter Additional Health Concerns Assessment Noted Time PHQ-9 Depression Total Score: 0 10/16/19 24 10:59 AM EDT documented as of this encounter Care Teams Financial Service Rep Relationship Specialty Start Date End Date Lorena Rendon MD [address] [place] [phone] PCP - General Internal Medicine 10/25/22 documented as of this encounter
--- OUTSIDE RECORDS SUMMARY | 2024-08-12 16:55 | XMS_ITS | Encounter Summary ---
Author Organization [employer] Address [address] [place] [address] Care Team Providers Care Garment Steamer Name Role Phone Lorena Rendon MD Primary Care Pro vider Reason for Visit * Reason Comments Med Refill Encounter Details Date Type Department Care Team ([facility] Contact Info) Description 02/09/2023 Refill [facility] [address] [place] [address] [phone] Lorena Rendon MD [address] [place], [place] [phone] Iron deficiency anemia, unspecified iron deficiency anemia type Social History Tobacco Use Types Packs/Day Years Used Date Smoking Tobacco: Never Passive Smoke Exposure: Never Smokeless Tobacco: Never Alcohol Use Standard Drinks/Week Comments Yes 0 (1 standard drink = 0.6 oz pur e alcohol) social Depression Answer Date Recorded Patient Health Questionnaire-9 Score 0 12/17/2022 Depression Answer Date Recorded Patient Health Questionnaire-2 Score 0 12/17/2022 Comments Unknown Sex and Gender Information Value Date Recorded Sex Assigned at Female 03/18/2022 10:40 AM EDT Legal Sex Female 10:40 AM EDT Gender Identity Female 03/18/2022 10:40 AM EDT Sexual Orientation Straight 12/17/2022 10 :43 AM EDT documented as of this encounter Plan of Treatment Upcoming Encounters Date Type Department Care Team ([facility] Contact Info) Description 10/28/2024 9:00 AM EDT Office Visit [facility] [address] [place] [address] [phone] Lorena Rendon MD [address] [place] [address] documented as of this encounter Visit Diagnoses Diagnosis Iron deficiency anemia, unspecified iron deficiency anemia type documented in this encounter Additional Health Concerns Assessment Noted Time PHQ-9 Depression Total Score: 0 12/18/19 10:33 AM EDT documented as of this encounter Care Teams Garment Steamer Relationship Specialty Start Date End Date Lorena Rendon MD [address] [place] [address] PCP - General Internal Medicine 10/25/22 documented as of this encounter
--- OUTSIDE RECORDS SUMMARY | 2024-08-12 16:55 | XMS_ITS | Encounter Summary ---
Author Organization [employer] Address [address] [place] [address] Care Team Providers Care Ceramics Instructor Name Role Phone Lorena Rendon MD Primary Care Pro vider Reason for Visit * Reason Comments Blurred Vision Encounter Details Date Type Department Care Team ([facility] st Contact Info) Description 07/26/2024 9:30 AM EDT Office Visit [facility] [address] [place] [address] IggiVickie, OD [address] [place] [address] Hyperopia of both eyes (Primary Dx); Meibomian gland dysfunction; Examination of eyes and vision Social History Tobacco Use Types Packs/Day Years [...] your housing situation today? I have robert sing 03/19/[address] you li [...] Description 10/28/2024 9:00 AM EDT Office Visit [facility] [address] [place] [address] Lorena Rendon MD [address] [place] [phone] documented as of this encounter Visit Diagnoses Diagnosis Hyperopia of both eyes- Primary Meibomian gland dysfunction Other disorders of eyelid Examination of eyes and vision documented in this encounter Additional Health Concerns Assessment Noted Time PHQ-9 Depression Total Score: 0 10/16/19 24 10:59 AM EDT documented as of this encounter Care Teams Ceramics Instructor Relationship Specialty Start Date End Date Lorena Rendon MD [address] [place] [address] PCP - General Internal Medicine 10/25/22 documented as of this encounter
--- OUTSIDE RECORDS SUMMARY | 2024-08-12 16:55 | XMS_ITS | Clinical Summary ---
Author Organization [employer] Address [address] [place] [address] Care Team Providers Care C Unix Developer Name Role Phone Lorena Rendon MD Primary Care Pro vider Allergies No known active allergies Medications ascorbic acid (Vitamin C) 250 MG chewable tablet Chew 1 tablet (250 mg) Once per day. 90 tablet 024 Active ferrous sulfate 325 (65 Fe) MG EC tablet TAKE 1 TABLET (325 MG) BY MOUTH WITH BREAKFAST 90 tablet 025 Active Tirzepatide-Weig ht Management (Zepbound) 5 MG/0.5ML solution auto-injector Inject 0.5 mL (5 mg) under the skin 1 (one) time per week. INJECT ONE PEN (= 5MG) SUBCUTANEOUSLY ONCE A WEEK 2 mL 2 025 Active Polyvinyl Alcohol-Povidone 5-6 MG/ML solution Administer 1 drop into affected eye(s) 3 times daily. 15 mL 025 Active cetirizine (ZyrTEC) 10 MG tabletIndication s:Acute rhinosinusitis Take 1 tablet (10 mg) by mouth Once per day. 90 tablet 025 Active cetirizine (ZyrTEC) 10 MG tabletIndication s:Acute rhinosinusitis TAKE 1 TABLET (10 MG) BY MOUTH DAILY NEEDED FOR ALLERGIES 90 tablet 023 2024 Discontinued(R eorder (will not trigger notification to Pharmacy)) Tirzepatide-Weig ht Management 2.5 MG/0.5ML solution auto-injector Inject 0.5 mL (2.5 mg) under the skin 1 (one) time per week. ZEPBOUND After 4 weeks if tolerating can increase to 5 mg weekly 0.5 mL 1 024 2024 Discontinued(D ose adjustment) Active Problems Problem Noted Date Diagnosed Date Nephrolithiasis 10/17/2023 Health care maintenance 12/17/2022 Obesity 12/17/2022 Anemia 09/12/2022 Assessment & Plan (09/12/2022 10:16 PM EDT): From previous labs noted a history of anemia. Hb in 11.8 for patient with history of heavy menstrual periods. - Pt currently taking Fe daily. - Referred to [facility]. - Pt will return to clinic to follow up with PCP in 4-6 weeks to follow labs done today. Resolved Problems Problem Noted Date Diagnosed Date Resolved Date Amenorrhea 09/12/2022 12/17/2022 Overview (10/25/2022): ?? Established with [facility] ?? Initial labs all WNL ?? Upcoming Assessment & Plan (09/12/2022 10:11 PM EDT): Amenorrhea for 3 months, negative test at home and repeated in urine here today. Denies symptoms concerning for thyroid disease and hyperprolactinemia. - Will check labs. - Referred to stonemason helper today. Cyst of right ovary 09/12/2022 12/18/19 Assessment & Plan (09/12/2022 10:13 PM EDT): [place] on her phone): enlargement of rt ovary, secondary to 5.2 cm, complex cyst, possibly hemmorhagic. - Referred today to [facility] for further evaluation and imaging. - Papsmear 2019: normal with negative HPV. Encounters Date Type Department Care Team Description 08/11/2024 Orders Only GENERIC EXTERNAL DATA DEPARTMENT Provider, Generic External Data 07/30/2024 Telephone [facility] [address] [place] [phone] Lorena Rendon MD October07/30/2024 Population Health Risk Score Community Care [facility] ([facility]) Department [address] [place] [phone] Provider, Population Health Generic 07/26/2024 9:30 AM EDT Office Visit [facility] [address] [place] [address] Gigi, Vickie, OD Hyperopia of both eyes (Primary Dx); Meibomian gland dysfunction; Examination of eyes and vision 07/26/2024 Travel 07/22/2024 Refill [facility] [address] [place] [address] Lorena Rendon MD 07/22/2024 Refill [facility] [address] [place], [place] [phone] Lorena Rendon MD Acute rhinosinusitis 07/06/2024 Refill [facility] [address] [place], [place] [phone] Lorena Rendon MD from Last 3 Months Immunizations Name Administration Dates Next Due Moderna Covid-19 Vaccine 12+ 12/21/2020,11/24/19 21 Tdap 06/26/2022 Family History Medical History Relation Name Comments HTN,HLD Brother HLD Father HTN Mother DM2 Paternal Grandfather DM2 Paternal Grandmother Relation Name Status Comments Brother Father Mother Paternal Grandfather Paternal Grandmother Social History Tobacco Use Types Packs/Day Years Used Date Smoking Tobacco: Never Passive Smoke Exposure: Never Smokeless Tobacco: Never Tobacco Cessation:Counseling Given: Not Answered Alcohol Use Standard Drinks/Week Comments Yes 0 [...] Orientation Straight 12/17/2022 10 :43 AM EDT Last Filed Vital Signs Vital Sign Reading Time Taken Comments Blood Pressure 124/62 04/20/2024 10:08 AM EST Pulse 78 04/20/2024 10:08 AM EST Temperature 36.2 ??C (97.1 ??F) 04/20/2024 10:[address] Respiratory Rate 20 04/20/2024 10:08 AM EST Oxygen Saturation 98% 04/20/2024 10:08 AM EST Inhaled Oxygen Concentration - - Weight 85.7 kg (189 lb) 04/20/2024 10:08 AM EST Height 157.5 cm (5' 2 ) 04/20/2024 10:08 AM EST Body Mass Index 34.57 04/20/2024 10:08 AM EST Plan of Treatment Upcoming Encounters Date Type Department Care Team (Late st Contact Info) Description 10/28/2024 9:00 AM EDT Office Visit [facility] [address] [place] [address] [phone] Lorena Rendon MD [address] [place] [address] Health Maintenance Due Date Last Done Comments Family Planning (PISQ) 2008 Hepatitis B Vaccines (1 of 3 - 19+ 3-dose series) 2012 COVID-19 Vaccine ( season) 2024 12/21/2020, 11/23/2020 Influenza Vaccine (#1) 2024 SDOH Screening 08/05/2024 08/06/2023 Depression Screening 10/15/2024 10/16/2023, 10/16/19 Alcohol/Substance Use Screening 04/20/2025 04/20/2024 Tobacco Screening 08/11/2025 08/11/2024 Cervical Cancer Screening 10/15/2025 HPV/Cotest 10/15/2025 Pap Smear 10/15/2025 10/15/2022 Lipid Panel 01/12/2029 01/13/2024, 0808/2022, 10/17/2021 DTaP/Tdap/Td Vaccines (2 - Td or Tdap) 06/26/2032 06/26/2022 Zoster Vaccines (1 of 2) 2043 RSV Patients and Patients Aged 60 years or older (1 - 1-dose 75+ series) 2068 HIV Screening Completed 01/13/2024, 08/18, 01/14/2022, Additional history exists Hepatitis C Screening Completed 01/13/2024 , 09/12/2022, 01/14/2022, Additional history exists HIB Vaccines Aged Out No longer eligi ble based on patient's age to complete this topic HPV Vaccines Aged Out No longer eligi ble based on patient's age to complete this topic Hepatitis A Vaccines Aged Out No long er eligible based on patient's age to complete this topic IPV Vaccines Aged Out No longer eligi ble based on patient's age to complete this topic Meningococcal Vaccine Aged Out No jean mason eligible based on patient's age to complete this topic Pneumococcal Vaccine: Pediatrics (0 to 5 Years) and At-Risk Patients (6 to 49) Years) Aged Out No longer eligible based on patient's age to complete this topic RSV under 20 months Aged Out No longe r eligible based on patient's age to complete this topic Rotavirus Vaccines Aged Out No longer eligible based on patient's age to complete this topic Procedures Procedure Name Priority Date/Time Associated Diagnosis Comments URINALYSIS, COMPLETE, WITH REFLEX TO CULTURE Routine 08/11/2024 2:20 AM EDT LIPASE Routine 08/11/2024 1:47 AM EDT COMPREHENSIVE METABOLIC PANEL Routine 08/11/2024 1:47 AM EDT CBC WITH AUTO DIFFERENTIAL Routine 08/11/2024 1:47 AM EDT CULTURE, URINE, ROUTINE Routine 08/11/2024 12:00 AM EDT HEPATITIS C AB W/REFL TO HCV RNA, QN, PCR Routine 01/13/2024 8:52 AM EDT Annual physical exam HIV 1/2 ANTIGEN/ANTIBODY, FOURTH GENERATION W/RFL Routine 01/13/2024 8:52 AM EDT Annual physical exam LIPID PANEL, STANDARD Routine 01/13/2024 8:49 AM EDT Annual physical exam PAP SMEAR Routine 10/15/2022 3:58 PM EDT from Last 3 Months or Most Recently Relevant to Health Maintenance Results * (ABNORMAL) Urinalysis, Complete, with Reflex to Culture (08/11/2024 2:20 AM EDT) Color Urine Yellow [facility] Appearance Urine Clear [facility] PH 8.0 5.0 - 9.0 [facility] Glucose Urine UA Negative Negative mg/dL [facility] Urine Blood Negative Negative [facility] Specific [place] - Urine 1.020 1.005 - 1.025 [facility] Urine Protein Negative Neg-Trace mg/dL [facility] Urine Ketones Negative Negative mg/dL [facility] Nitrite Urine Negative Negative [facility] Leukocyte Esterase Urine Small (1+)(A) Negative [facility] RBC Urine 0-2 0 - 2 /HPF [facility] Urine WBC 0-5 0 - 5 /HPF [facility] Urine Squamous Epithelial Cell 11-20 0 - 2 /HPF [facility] Urine Bacteria None Seen None Seen [facility] Hyaline Casts, Urine 0-2 0 - 2 /LPF [facility] 08/11/2024 2:20 AM EDT 08/11/2024 2:24 AM EDT Narrative [facility] - 08/11/2024 2:42 AM EDT Urine, Clean Catch us Generic External Data Provider LAB URINE ORDERAB LES Final Result [facility] [address] [place] [phone] [phone] * (ABNORMAL) CBC auto differential (08/11/2024 1:47 AM EDT) White Blood Count 12.0(H) 4.8 - 10.8 X10*3/uL [facility] Red Blood Count 3.92(L) 4.20 - 5.50 X10*6/uL [facility] Hemoglobin 11.6(L) 12.0 - 16.0 g/dl [facility] Hematocrit 33.1(L) 37.0 - 47.0 % [facility] Mean Corpuscular Volume 84.4 80.0 - 98.0 fL [facility] Mean Corpuscular Hemoglobin 29.6 27.0 - 33.0 pg [facility] Mean Corpuscular HGB Conc 35.0 31.0 - 35.0 g/dl [facility] Red Cell Distribution Width 12.7 11.0 - 16.0 % [facility] Platelet Count 273 160 - 400 X10*3/uL [facility] Mean Platelet Volume 9.9 9.4 - 12.3 fL [facility] Neutrophils Percent Auto 61.8 45 - 73 % [facility] Imm Gran Pct Auto 0.3 0.0 - 0.4 % [facility] Lymphocytes Percent Auto 30.1 20 - 40 % [facility] Monocytes Percent Auto 6.4 2 - 11 % [facility] Eosinophils Percent Auto 1.1 0 - 4 % [facility] Basophils Percent Auto 0.3 0 - 2 % [facility] NRBC Pct Auto 0.0 0.0 - 0.2 /100WBC [facility] Neutrophils Absolute Auto 7.4 2.0 - 8.3 x10*3/uL [facility] Imm Gran Abs Auto 0.03 0.00 - 0.03 X10*3/uL [facility] Lymphocytes Absolute Auto 3.6 1.2 - 4.9 X10*3/uL [facility] Monocytes Absolute Auto 0.8 0.1 - 1.2 X10*3/uL [facility] Eosinophils Absolute Auto 0.1 0.0 - 0.4 X10*3/uL [facility] Basophils Absolute Auto 0.0 0.0 - 0.2 X10*3/uL [facility] NRBC Abs Auto 0.000 0.0 - 0.012 X10*3/uL [facility] 08/11/2024 1:47 AM EDT 08/11/2024 1:51 AM EDT us Generic External Data Provider LAB BLOOD ORDERAB LES Final Result Performing Organization Address City/[facility] Co de Phone Number [facility] [address] [place] [phone] * Lipase (08/11/2024 1:47 AM EDT) Pathologist [facility] Lipase 13 8 - 78 U/L [facility] 08/11/2024 1:47 AM EDT 08/11/2024 1:51 AM EDT Generic External Data Provider LAB BLOOD ORDERAB LES Final Result Performing Organization Address [facility] Co de Phone Number [facility] [address] [place] [phone] * (ABNORMAL) Comprehensive Metabolic Panel (08/11/2024 1:47 AM EDT) Sodium 143 135 - 145 mmol/L [facility] Potassium 3.7 3.3 - 5.1 mmol/L [facility] Chloride 109(H) 96 - 108 mmol/L [facility] Carbon Dioxide 23 22 - 29 mmol/L [facility] Anion Gap 15 12 - 20 [facility] Urea Nitrogen (BUN) 12 9 - 16 mg/dL [facility] Creatinine, Serum 0.77 0.5 - 1.4 mg/dL [facility] Creatinine Clr Calc Pharmacy 101.7 [facility] Comment:Provided height and weight: 157.48 cm,77.111 kg.eGFR (calculated from the MDRD study equation) and eCrCl(calculated from the Cockcroft-Gault equation) are based ondifferent parameters and may not yield comparable results.If eCrCl result is absurd, please check patient'sheight/weight. Estimated Glomerular Filt Rate >60 [facility] Comment:Chronic Kidney Disea se: Estimated GFR < 60 mL/min/1.59i9Hrblgi Kidney Disease: Estimated GFR < 15 mL/min/1.73m2 Glucose 91 60 - 115 mg/dL [facility] Calcium 9.3 8.4 - 10.2 mg/dL [facility] Bilirubin, Total 0.2 0.0 - 1.0 mg/dL [facility] Aspartate Amino Transferase 16 5 - 31 U/L [facility] Alanine Aminotransferase 15 0 - 31 U/L [facility] Total Protein 7.2 6.5 - 8.0 g/dL [facility] Albumin Level 4.1 3.5 - 5.0 g/dL [facility] Alkaline Phosphatase 86 39 - 117 U/L [facility] 08/11/2024 1:47 AM EDT 08/11/2024 1:51 AM EDT us Generic External Data Provider LAB BLOOD ORDERAB LES Final Result [facility] [address] [place] [phone] [phone] * Culture, Urine, Routine (08/11/2024 12:00 AM EDT) Urine Urine specimen obtained by clean catch procedure / Unknown 08/11/2024 08/11/2024 Comment:UACC Narrative [facility] - 08/12/2024 11:25 AM EDT Urine Culture Report Result Urine Culture < 10,000 cfu/ml Specimen Source: Urine clean catch us Generic External Data Provider LAB MICROBIOLOGY - GENERAL ORDERABLES Final Result Performing Organization Address [facility]/ZIP Co de Phone Number [facility] [address] [place] [phone] * Hepatitis C Antibody with Reflex to HCV, RNA, Quantitative, Real-Time PCR (01/13/2024 8:52 AM EDT) Hepatitis C Antibody Nonreactive Nonreactive [facility] Comment:Antibodies to HCV no t detected; does not exclude early acuteHCV infection. Blood Venous blood specimen / Unknown 01/13/2024 8:52 AM EDT 01/13/2024 11:22 AM EDT us Lorena Tijerina MD LAB BLOOD ORDERAB LES Final Result Performing Organization Address [facility] de Phone Number [facility] [address] [place] [phone] * HIV-1/2 Antigen and Antibodies, Fourth Generation, with Reflexes (01/13/2024 8:52 AM EDT) HIV AB/AG Nonreactive Nonreactive [facility] Comment:HIV-1 p24 Ag and/or HIV-1/HIV-2 Ab not detected.A test result that is nonreactive does not exclude thepossibility of exposure to or infection with HIV-1 and/orHIV-2. Nonreactive results in this assay for individualswith prior exposure to HIV-1 and/or HIV-2 may be due toantigen and antibody levels that are below the limit ofdetection of this assay.The Aceable HIV Ag/Ab Combo assay result andsupplemental assay results should be interpreted inconjunction with the patient's clinical presentation,history and other laboratory results. If the results areinconsistent with clinical evidence, additional testing issuggested to confirm the result. Blood Venous blood specimen / Unknown 01/13/2024 8:52 AM EDT 01/13/2024 11:22 AM EDT Lorena Tijerina MD LAB BLOOD ORDERAB LES Final Result Performing Organization Address City/[facility] Co de Phone Number [facility] [address] [place] [phone] * Lipid Panel, Standard (01/13/2024 8:49 AM EDT) Triglycerides 146 <150 mg/dL [facility] Comment:Desirable Triglyceri de: less than 150 mg/dLBorderline High Triglyceride 150-199 mg/dLHigh Triglyceride: 200-499 mg/dLVery High Triglyceride: greater than or equal to 5OO mg/dL Cholesterol 167 <200 mg/dL [facility] Comment:Desirable Cholestero l: less than 200 mg/dLBorderline High Cholesterol: 200-239 mg/dLHigh Cholesterol: greater than 239 mg/dL LDL Cholesterol Calculated 96 <100 mg/dL [facility] Comment:Desirable LDL: less than 100 mg/dLNear Optimal/Above Optimal LDL: 110- 129 mg/dLBorderline High LDL: 130-159 mg/dLHigh LDL: 160-189 mg/dLVery High LDL: greater than or equal to 190 mg/dL HDL Cholesterol 42 >40 mg/dL [facility] Comment:Desirable HDL: great er than 40 mg/dL Note: This HDL assay may give artificially low results in patients with liver disease. Blood Venous blood specimen / Unknown 01/13/2024 8:49 AM EDT 01/13/2024 11:22 AM EDT us Lorena Tijerina MD LAB BLOOD ORDERAB LES Final Result Performing Organization Address City/[facility]/ZIP Co de Phone Number [facility] [address] [place] [phone] * Pap Smear (10/15/2022 3:58 PM EDT) 10/15/2022 3:58 PM EDT 10/16/2022 12:15 PM EDT Narrative [facility] - 11/04/2022 1:15 PM EDT ----- ------- Name: Colon Mchugh,Sagrario ?Age/Sex: 27/F ? : 1995 Unit#: [id number] ?? Attend Dr: Chris Bedoya MD ?Re10/15/22 ?Status: DEP REF ? Location: HO.LNP ?Disch: ? ----- ------- SPEC : [id number] ? RECD: 10/16/22-5 ? STATUS: ??SOUT ? REQ NUM: [id number] ? MARQUIS: 10/15/22-0128 ? SUBM DR: Chris Bedoya MD ? ENTERED: ??10/16/22-1239 ?SP TYPE: Pap Smr ?OTHR : ? ORDERED: ??Pap Smear ? Interpretation ?? Satisfactory for evaluation. ?? Negative for intraepithelial lesion or malignancy. ?Clinical Information LMP: 10/10/22 Previous PAP test: Unknown ? Material Received ?? ThinPrep-Cervical ----- ------- Signed (signature on file) Brit Bradshaw Darron 11/04/22 [id number] ? ----- ------- ? END OF REPORT ? [facility] External Provider LAB CYT OLOGY ORDERABLES Final Result [facility] [address] [place] [phone] [phone] from Last 3 Months or Most Recently Relevant to Health Maintenance Insurance [facility] C3 Care Teams C Unix Developer Relationship Specialty Start Date End Date Lorena Rendon MD [address] [place] [phone] PCP - General Internal Medicine 10/25/22
--- OUTSIDE RECORDS SUMMARY | 2024-08-12 16:55 | XMS_ITS | Encounter Summary ---
Author Organization [employer] Address [address] [place] [address] Care Team Providers Care Fnp Name Role Phone [facility] Primary Care Provider [phone] Lorena Rendon MD Primary Care Pro vider Reason for Visit * Reason Comments Med Change Request Encounter Details Date Type Department Care Team ([facility] st Contact Info) Description 08/19/2022 Refill [facility] [address] [place] [address] Crow Bernal FNP Acute rhinosinusitis Social History Tobacco Use Types Packs/Day Years Used Date Smoking Tobacco: Never Passive Smoke Exposure: Never Smokeless Tobacco: Never Comments Unknown Sex and Gender Information Value Date Recorded Sex Assigned at Female 03/18/2022 10:40 AM EDT Legal Sex Female 10:40 AM EDT Gender Identity Female 03/18/2022 10:40 AM EDT Sexual Orientation Straight 12/17/2022 10 :43 AM EDT COVID-19 Exposure Response Date Recorded In the last 10 days, have yo u been in contact with someone who was confirmed or suspected to have Coronavirus/COVID-19? No / Unsure 08/19/2022 11:30 AM EDT documented as of this encounter Miscellaneous Notes * Telephone Encounter - ARNAV Stephenson - 08/19/2022 4:31 PM EDT Approving, but needs appt for additional refills. documented in this encounter Plan of Treatment Upcoming Encounters Date Type Department Care Team (Late st Contact Info) Description 10/28/2024 9:00 AM EDT Office Visit [facility] [address] [place] [address] Lorena Rendon MD [address] [place] [address] documented as of this encounter Visit Diagnoses Diagnosis Acute rhinosinusitis documented in this encounter Care Teams Fnp Relationship Specialty Start Date End Date Juanita Ji FNP [address] [place] [phone] PCP - General Family Medicine 01/15/22 10/24/22 Lorena Rendon MD [address] [place] [phone] PCP - General Internal Medicine 10/25/22 documented as of this encounter
--- OUTSIDE RECORDS SUMMARY | 2024-08-12 16:55 | XMS_ITS | Encounter Summary ---
Author Organization [employer] Address [address] [place] [address] Care Team Providers Care Mall Plant Caretaker Name Role Phone Lorena Rendon MD Primary Care Pro vider Reason for Visit * Reason Onset Date Comments Karley recall 07/30/2024 Encounter Details Date Type Department Care Team ([facility] st Contact Info) Description 07/30/2024 Telephone [facility] [address] [place] [address] Lorena Rendon MD [address] [place] [address] October recall Social History Tobacco Use Types Packs/Day Years [...] your housing situation today? I have robert pepito 03/19/[address] you li [...] encounter Miscellaneous Notes * Telephone Encounter - Taya Dove MA - 07/30/2024 1:27 PM EDT Telephone call to patient to schedule the following recall: Visit type: Physical Appointment notes: Physical Patient agree to appointment on 10/28/24 at 9 AM with Uli. documented in this encounter Plan of Treatment Upcoming Encounters Date Type Department Care Team (Late st Contact Info) Description 10/28/2024 9:00 AM EDT Office Visit [facility] [address] [place] [phone] Lorena Rendon MD [address] [place] [phone] documented as of this encounter Visit Diagnoses Not on filedocumented in this encounter Additional Health Concerns Assessment Noted Time PHQ-9 Depression Total Score: 0 10/16/19 24 10:59 AM EDT documented as of this encounter Care Teams Mall Plant Caretaker Relationship Specialty Start Date End Date Lorena Rendon MD [address] [place] [phone] PCP - General Internal Medicine 10/25/22 documented as of this encounter
--- OUTSIDE RECORDS SUMMARY | 2024-08-12 16:55 | XMS_ITS | Encounter Summary ---
Author Organization [employer] Address [address] [facility] [address] [place] [address] Care Team Providers Care Edi Consultant Name Role Phone Lorena Rendon MD Primary Care Pro vider Reason for Visit * Reason Onset Date Comments Med Refill 07/22/2024 Encounter Details Date Type Department Care Team (Late st Contact Info) Description 07/22/2024 Refill [facility] [address] [place] [phone] Lorena Rendon MD [address] [place] [address] Acute rhinosinusitis Social History Tobacco Use Types [...] encounter Miscellaneous Notes * Telephone Encounter - Sagrario Real MD - 07/22/2024 3:17 PM EST Zepbound injection request sent to me. I called patient and she denies abdominal bloating, diarrhea, nausea, constipation. She seems to betolerating well the 2.5mg tirzepatide injection, last dose was 10 days ago, she is out of refills. She also complains of itchy eyes, no fever no chills. She apparently had an URI last weekend with 1day of fever and resolved the next day, she has been around people with influenza and COVID. No additional sick contacts this week. She is requesting medications for her itchy eyes, no other symptoms. Zepbound injection 5 mg sent to [facility] Zyrtec tablets. Advised to come tot walk-in center if symptoms do not resolve completely within 1 to 2 days or she has recurrence of fever or worsening URI symptoms. She agreed w POC * Telephone Encounter - Fay Rendon LPN - 07/22/2024 10:47 AM EST PCP off. Next dose pended please review. Last seen 04/20/24. * Telephone Encounter - Oskarreal WestJens - 07/22/2024 10:41 AM EST TC from pt requesting medication refill. Medications needing refill Tirzepatide-Weight Management 2.5 MG/0.5ML solution auto-injector To be sent to: [facility]/pharmacy #[id number] - [place] - [address] [facility] documented in this encounter Plan of Treatment Upcoming Encounters Date Type Department Care Team (Late st Contact Info) Description 10/28/2024 9:00 AM EDT Office Visit [facility] [address] [place] [address] [phone] Lorena Rendon MD [address] [place] [phone] documented as of this encounter Visit Diagnoses Diagnosis Acute rhinosinusitis documented in this encounter Additional Health Concerns Assessment Noted Time PHQ-9 Depression Total Score: 0 10/16/19 24 10:59 AM EDT documented as of this encounter Care Teams Edi Consultant Relationship Specialty Start Date End Date Lorena Rendon MD [address] [place] [address] [phone] PCP - General Internal Medicine 10/25/22 documented as of this encounter
== END 2024-08-12 14:27 | disposition home or self-care (01) ==
LOC: HO.HWS 13:32
PROVIDERS: PCP Student in an Organized Health Care Education/Training Program; Visit Provider Obstetrics & Gynecology
DX: N93.9 Abnormal uterine and vaginal bleeding, unspecified (principal); R10.2 Pelvic and perineal pain; N76.0 Acute vaginitis; Z32.02 Encounter for pregnancy test, result negative
CPT/HCPCS: 99213

== ENCOUNTER 2024-09-08 15:50 | Outpatient (REF) | payer MEDICAID, SELFPAY ==
--- NOTE | ~2024-09-08 | US_ITS ---
CLINICAL HISTORY: R10.2 - Pelvic and perineal pain US pelvis transabdominal and transvaginal with color Doppler Comparison: None Findings: Transabdominal scanning performed for overall anatomy. Transvaginal scanning performed for additional detail. LMP: Unknown Anteverted uterus, normal size and echotexture, measuring 8.0 x 4.0 x 5.3 cm. Well defined endometrium, measuring 5.0 mm in thickness. The right ovary measures, 2.4 x 2.1 x 2.3 cm. Normal sonographic appearance right ovary. The left ovary measures, 2.1 x 1.7 x 2.1 cm. Normal sonographic appearance left ovary. Cystic tubular structure right adnexa measuring 7.1 x 4.1 x 4.1 probable hydrosalpinx no associated hyperemia to suggest pyosalpinx although there is minimal dependent debris. No free fluid Impression: 1. Tubular avascular structure right adnexa probable hydrosalpinx with minimal debris. MRI would be confirmatory contrast would be indicated. 2. Uterus within normal limits. 3. Normal sonographic appearance of the ovaries This document has been electronically signed by: Javier Josue MD on 09/10/2024 12:22:38
--- OUTSIDE RECORDS SUMMARY | 2024-09-08 18:22 | XMS_ITS | Encounter Summary ---
Author Organization [employer] Address [address] [facility] [address] [place] [address] Care Team Providers Care Wet Wash Assembler Name Role Phone Lorena Rendon MD Primary Care Pro vider Reason for Visit * Reason Comments Med Refill Encounter Details Date Type Department Care Team ([facility] st Contact Info) Description 07/22/2024 Refill [facility] [address] [place] [address] Lorena Rendon MD [address] [place] [address] Social History Tobacco Use Types Packs/Day Years [...] Description 10/28/2024 9:00 AM EDT Office Visit [facility] [address] [place] [phone] Lorena Rendon MD [address] [place] [phone] documented as of this encounter Visit Diagnoses Not on filedocumented in this encounter Additional Health Concerns Assessment Noted Time PHQ-9 Depression Total Score: 0 10/16/19 24 10:59 AM EDT documented as of this encounter Care Teams Wet Wash Assembler Relationship Specialty Start Date End Date Lorena Rendon MD [address] [place] [phone] PCP - General Internal Medicine 10/25/22 documented as of this encounter
--- OUTSIDE RECORDS SUMMARY | 2024-09-08 18:22 | XMS_ITS | Encounter Summary ---
Author Organization [employer] Address [address] [place] [address] Care Team Providers Care Household Appliance Mechanic Name Role Phone Lorena Rendon MD Primary Care Pro vider Reason for Visit * Reason Comments Med Refill Encounter Details Date Type Department Care Team ([facility] Contact Info) Description 02/09/2023 Refill [facility] [address] [place] [address] [phone] Lorena Rendon MD [address] [place], [place] [phone] Iron deficiency anemia, unspecified iron deficiency anemia [...] Upcoming Encounters Date Type Department Care Team ([facility] Contact Info) Description 10/28/2024 9:00 AM EDT Office Visit [facility] [address] [place] [address] [phone] Lorena Rendon MD [address] [place] [address] documented as of this encounter Visit Diagnoses Diagnosis Iron deficiency anemia, unspecified iron deficiency anemia type documented in this encounter Additional Health Concerns Assessment Noted Time PHQ-9 Depression Total Score: 0 12/18/19 10:33 AM EDT documented as of this encounter Care Teams Household Appliance Mechanic Relationship Specialty Start Date End Date Lorena Rendon MD [address] [place] [address] PCP - General Internal Medicine 10/25/22 documented as of this encounter
--- OUTSIDE RECORDS SUMMARY | 2024-09-08 18:22 | XMS_ITS | Encounter Summary ---
Author Organization [employer] Address [address] [address] [place] [address] Care Team Providers Care Lime Kiln Worker Helper Name Role Phone Margy [facility] Primary Care Provider Lorena Rendon MD Primary Care Pro vider Reason for Visit * Reason Comments Med Change Request Encounter Details Date Type Department Care Team ([facility] st Contact Info) Description 08/19/2022 Refill [facility] [address] [place] [address] Crow Bernal FNP Acute rhinosinusitis Social History [...] Description 10/28/2024 9:00 AM EDT Office Visit [facility] [address] [place] [address] Lorena Rendon MD [address] [place] [address] documented as of this encounter Visit Diagnoses Diagnosis Acute rhinosinusitis documented in this encounter Care Teams Lime Kiln Worker Helper Relationship Specialty Start Date End Date Juanita Ji FNP [address] [place] [phone] PCP - General Family Medicine 01/15/22 10/24/22 Lorena Rendon MD [address] [place] [phone] PCP - General Internal Medicine 10/25/22 documented as of this encounter
--- OUTSIDE RECORDS SUMMARY | 2024-09-08 18:22 | XMS_ITS | Clinical Summary ---
Author Organization [employer] Address [address] [place] [address] Care Team Providers Care Computer Assistant Name Role Phone Lorena Rendon MD Primary Care Pro vider Allergies No known active allergies Medications ascorbic acid (Vitamin C) 250 MG chewable tablet Chew 1 tablet (250 mg) Once per day. 90 tablet 04/20/20 24 Active ferrous sulfate 325 (65 Fe) MG EC tablet TAKE 1 TABLET (325 MG) BY MOUTH WITH BREAKFAST 90 tablet 07/08/19 25 Active Tirzepatide-Weight Management (Zepbound) 5 MG/0.5ML solution auto-injector Inject 0.5 mL (5 mg) under the skin 1 (one) time per week. INJECT ONE PEN (= 5MG) SUBCUTANEOUSLY ONCE A WEEK 2 mL 2 07/23/19 25 Active Polyvinyl Alcohol-Povidone 5-6 MG/ML solution Administer 1 drop into affected eye(s) 3 times daily. 15 mL 07/23/19 25 Active cetirizine (ZyrTEC) 10 MG tabletIndications: Acute rhinosinusitis Take 1 tablet (10 mg) by mouth Once per day. 90 tablet 07/23/19 25 Active Active Problems Problem Noted Date Diagnosed Date Nephrolithiasis 10/17/2023 Health care maintenance 12/17/2022 Obesity 12/17/2022 Anemia 09/12/2022 Assessment & Plan (09/12/2022 10:16 PM EDT): From previous labs noted a history of anemia. Hb in 11.8 for patient with history of heavy menstrual periods. - Pt currently taking Fe daily. - Referred to MANAGER OF OPERATIONS. - Pt will return to clinic to follow up with PCP in 4-6 weeks to follow labs done today. Resolved Problems Problem Noted Date Diagnosed Date Resolved Date Amenorrhea 09/12/2022 12/17/2022 Overview (10/25/2022): ?? [place] with [facility]NA[facility] OF OPERATIONS ?? Initial labs all WNL ?? Upcoming Assessment & Plan (09/12/2022 10:11 PM EDT): Amenorrhea for 3 months, negative test at home and repeated in urine here today. Denies symptoms concerning for thyroid disease and hyperprolactinemia. - Will check labs. - Referred to nail expert today. Cyst of right ovary 09/12/2022 12/18/19 Assessment & Plan (09/12/2022 10:13 PM EDT): [place] on her phone): enlargement of rt ovary, secondary to 5.2 cm, complex cyst, possibly hemmorhagic. - Referred today to MANAGER OF OPERATIONS for further evaluation and imaging. - Papsmear 2019: normal with negative HPV. Encounters Date Type Department Care Team Description 08/26/2024 10:00 AM EDT Office Visit [facility] [address] [place] [address] Hyperopia of both eyes (Primary Dx) 08/12/2024 Orders Only GENERIC EXTERNAL DATA DEPARTMENT Provider, Generic External Data 08/11/2024 Orders Only GENERIC EXTERNAL DATA DEPARTMENT Provider, Generic External Data 07/30/2024 Telephone [facility] [address] [place] [address] Lorena Rendon MD October recall 07/30/2024 Population Health Risk Score [facility] Department [address] [facility] [address] [place] [address] Provider, Population Health Generic 07/26/2024 9:30 AM EDT Office Visit [facility] [address] [place] [address] Gigi, Vickie, OD Hyperopia of both eyes (Primary Dx); Meibomian gland dysfunction 07/26/2024 Travel 07/22/2024 Refill [facility] [address] [place] [address] Lorena Rendon MD 07/22/2024 Refill [facility] [address] [place] [address] Lorena Rendon MD Acute rhinosinusitis 07/06/2024 Refill [facility] [address] [place] [address] Lorena Rendon MD from Last 3 Months [...] Description 10/28/2024 9:00 AM EDT Office Visit [facility] [address] [place] [phone] Lorena Rendon MD [address] [place], [place] [phone] Health Maintenance Due Date Last Done Comments [...] Smear 10/15/2025 10/15/2022 Lipid Panel 01/12/2029 01/13/2024, 08/0 08/2022, 10/17/2021 DTaP/Tdap/Td Vaccines (2 - Td or [...] Procedure Name Priority Date/Time Associated Diagnosis Comments CHLAMYDIA/N. GONORRHOEAE RNA, TMA, UROGENITAL Routine 08/12/2024 1:32 PM EDT BACTERIAL VAGINOSIS PANEL Routine 08/12/2024 1:32 PM EDT URINALYSIS, COMPLETE, WITH REFLEX TO CULTURE Routine [...] Relevant to Health Maintenance Results * (ABNORMAL) Bacterial Vaginosis (08/12/2024 1:32 PM EDT) TRICHOMONAS VAGINALIS DETECTION BY PCR NOT DETECTED Not Detect [facility] BACTERIAL VAGINOSIS DETECTION BY PCR NEGATIVE Negative [facility] Comment:The BV organism targ ets of the Xpert Xpress MVP test can becommensal in women; Xpert Xpress MVP positive results forbacterial vaginosis should be considered in conjunction withother clinical and patient information to determine thedisease status. Organisms that are not detected by the XpertXpress MVP test have also been reported to be associatedwith BV and aerobic vaginitis.The Xpert Xpress MVP test performance has not been evaluatedin patients under the age of 14. ARUNA GROUP DETECTION BY PCR DETECTED(A) Not Detect [facility] Aruna glab krusei PCR NOT DETECTED Not Detect [facility] 08/12/2024 1:32 PM EDT 08/12/2024 3:17 PM EDT us Generic External Data Provider LAB MICROBIOLOGY - GENERAL ORDERABLES Final Result [facility] [address] [place] [address] [phone] * Chlamydia/N. Gonorrhoeae RNA, TMA, Urogenitial (08/12/2024 1:32 PM EDT) CT PCR NOT DETECTED Not Detect. [facility] Comment:A not detected test result does not exclude the possibilityof infection because test results can be affected byimproper specimen collection, concurrent antibiotic therapy,or the number of organisms in the specimen which may bebelow the sensitivity of the test. As with many diagnostictests, results from the Xpert CT/NG assay should beinterpreted in conjunction with other laboratory andclinical data available to the clinician.Xpert CT/NG performance has not been evaluated in patientsless than 14 years of age. The assay should not be used forthe evaluationof suspected sexual abuse or for other medico-legalindications. Additional testing is recommended in anycircumstance when false positive or false negative resultscould lead to adverse medical, social or psychologicalconsequences. NG PCR NOT DETECTED Not Detect. [facility] Comment:A not detected test result does not exclude the possibilityof infection because test results can be affected byimproper specimen collection, concurrent antibiotic therapy,or the number of organisms in the specimen which may bebelow the sensitivity of the test. As with many diagnostictests, results from the Xpert CT/NG assay should beinterpreted in conjunction with other laboratory andclinical data available to the clinician.Xpert CT/NG performance has not been evaluated in patientsless than 14 years of age. The assay should not be used forthe evaluationof suspected sexual abuse or for other medico-legalindications. Additional testing is recommended in anycircumstance when false positive or false negative resultscould lead to adverse medical, social or psychologicalconsequences. 08/12/2024 1:32 PM EDT 08/12/2024 3:17 PM EDT Narrative [facility] - 08/12/2024 5:30 PM EDT Vaginal us Generic External Data Provider LAB MICROBIOLOGY - GENERAL ORDERABLES Final Result [facility] [address] [place] [address] [phone] * (ABNORMAL) Urinalysis, Complete, with Reflex to Culture (08/11/2024 2:20 AM EDT) Color Urine Yellow [facility] Appearance Urine Clear [facility] PH 8.0 5.0 - 9.0 [facility] Glucose Urine UA Negative Negative mg/dL [facility] Urine Blood Negative Negative [facility] Specific Exline - Urine 1.020 1.005 - 1.025 [facility] Urine Protein Negative Neg-Trace mg/dL [facility] Urine Ketones Negative Negative mg/dL [facility] Nitrite Urine Negative Negative [facility] Leukocyte Esterase Urine Small (1+)(A) Negative [facility] RBC Urine 0-2 0 - 2 /HPF [facility] Urine WBC 0-5 0 - 5 /HPF [facility] Urine Squamous Epithelial Cell 11-20 0 - 2 /HPF [facility] Urine Bacteria None Seen None Seen [facility] Hyaline Casts, Urine 0-2 0 - 2 /LPF [facility] 08/11/2024 2:20 AM EDT 08/11/2024 2:24 AM EDT Narrative [facility] - 08/11/2024 2:42 AM EDT Urine, Clean Catch us Generic External Data Provider LAB URINE ORDERAB LES Final Result [facility] [address] [place] [address] [phone] * (ABNORMAL) CBC auto differential (08/11/2024 1:47 AM EDT) White Blood Count 12.0(H) 4.8 - 10.8 X10*3/uL [facility] Red Blood Count 3.92(L) 4.20 - 5.50 X10*6/uL [facility] Hemoglobin 11.6(L) 12.0 - 16.0 g/dl [facility] Hematocrit 33.1(L) 37.0 - 47.0 % [facility] Mean Corpuscular Volume 84.4 80.0 - 98.0 fL [facility] Mean Corpuscular Hemoglobin 29.6 27.0 - 33.0 pg [facility] Mean Corpuscular HGB Conc 35.0 31.0 - 35.0 g/dl [facility] Red Cell Distribution Width 12.7 11.0 - 16.0 % [facility] Platelet Count 273 160 - 400 X10*3/uL [facility] Mean Platelet Volume 9.9 9.4 - 12.3 fL [facility] Neutrophils Percent Auto 61.8 45 - 73 % [facility] Imm Gran Pct Auto 0.3 0.0 - 0.4 % [facility] Lymphocytes Percent Auto 30.1 20 - 40 % [facility] Monocytes Percent Auto 6.4 2 - 11 % [facility] Eosinophils Percent Auto 1.1 0 - 4 % [facility] Basophils Percent Auto 0.3 0 - 2 % [facility] NRBC Pct Auto 0.0 0.0 - 0.2 /100WBC [facility] Neutrophils Absolute Auto 7.4 2.0 - 8.3 x10*3/uL [facility] Imm Gran Abs Auto 0.03 0.00 - 0.03 X10*3/uL [facility] Lymphocytes Absolute Auto 3.6 1.2 - 4.9 X10*3/uL [facility] Monocytes Absolute Auto 0.8 0.1 - 1.2 X10*3/uL [facility] Eosinophils Absolute Auto 0.1 0.0 - 0.4 X10*3/uL [facility] Basophils Absolute Auto 0.0 0.0 - 0.2 X10*3/uL [facility] NRBC Abs Auto 0.000 0.0 - 0.012 X10*3/uL [facility] 08/11/2024 1:47 AM EDT 08/11/2024 1:51 AM EDT us Generic External Data Provider LAB BLOOD ORDERAB LES Final Result Performing Organization Address City/[facility]/ZIP Co de Phone Number [facility] [address] [place] [address] [phone] * Lipase (08/11/2024 1:47 AM EDT) Lipase 13 8 - 78 U/L [facility] 08/11/2024 1:47 AM EDT 08/11/2024 1:51 AM EDT Generic External Data Provider LAB BLOOD ORDERAB LES Final Result Performing Organization Address [facility] Co de Phone Number [facility] [address] [place] [address] [phone] * (ABNORMAL) Comprehensive Metabolic Panel (08/11/2024 1:47 AM EDT) Sodium 143 135 - 145 mmol/L [facility] Potassium 3.7 3.3 - 5.1 mmol/L [facility] Chloride 109(H) 96 - 108 mmol/L [facility] Carbon Dioxide 23 22 - 29 mmol/L [facility] Anion Gap 15 12 - 20 [facility] Urea Nitrogen (BUN) 12 9 - 16 mg/dL [facility] Creatinine, Serum 0.77 0.5 - 1.4 mg/dL [facility] Creatinine Clr Calc Pharmacy 101.7 [facility] Comment:Provided height and weight: 157.48 cm,77.111 kg.eGFR (calculated from the MDRD study equation) and eCrCl(calculated from the Cockcroft-Gault equation) are based ondifferent parameters and may not yield comparable results.If eCrCl result is absurd, please check patient'sheight/weight. Estimated Glomerular Filt Rate >60 [facility] Comment:Chronic Kidney Disea se: Estimated GFR < 60 mL/min/1.33c5Gyxglc Kidney Disease: Estimated GFR < 15 mL/min/1.73m2 Glucose 91 60 - 115 mg/dL [facility] Calcium 9.3 8.4 - 10.2 mg/dL [facility] Bilirubin, Total 0.2 0.0 - 1.0 mg/dL [facility] Aspartate Amino Transferase 16 5 - 31 U/L [facility] Alanine Aminotransferase 15 0 - 31 U/L [facility] Total Protein 7.2 6.5 - 8.0 g/dL [facility] Albumin Level 4.1 3.5 - 5.0 g/dL [facility] Alkaline Phosphatase 86 39 - 117 U/L [facility] 08/11/2024 1:47 AM EDT 08/11/2024 1:51 AM EDT us Generic External Data Provider LAB BLOOD ORDERAB LES Final Result Performing Organization Address City/[facility]/ZIP Co de Phone Number [facility] [address] [place] [address] [phone] * Culture, Urine, Routine (08/11/2024 12:00 AM EDT) Urine Urine specimen obtained by clean catch procedure / Unknown 08/11/2024 08/11/2024 Comment:UACC Narrative [facility] - 08/12/2024 11:25 AM EDT Urine Culture Report Result Urine Culture < 10,000 cfu/ml Specimen Source: Urine clean catch Generic External Data Provider LAB MICROBIOLOGY - GENERAL ORDERABLES Final Result Performing Organization Address City/[facility]/ZIP Co de Phone Number [facility] [address] [place] [address] [phone] * Hepatitis C Antibody with Reflex to HCV, RNA, Quantitative, Real-Time PCR (01/13/2024 8:52 AM EDT) Hepatitis C Antibody Nonreactive Nonreactive [facility] Comment:Antibodies to HCV no t detected; does not exclude early acuteHCV infection. Blood Venous blood specimen / Unknown 01/13/2024 8:52 AM EDT 01/13/2024 11:22 AM EDT us Lorena Tijerina MD LAB BLOOD ORDERAB LES Final Result Performing Organization Address City/[facility]/ZIP Co de Phone Number [facility] [address] [place] [address] [phone] * HIV-1/2 Antigen and Antibodies, Fourth Generation, with Reflexes (01/13/2024 8:52 AM EDT) Pathologist [facility] HIV AB/AG Nonreactive Nonreactive [facility] Comment:HIV-1 p24 Ag and/or HIV-1/HIV-2 Ab not detected.A test result that is nonreactive does not exclude thepossibility of exposure to or infection with HIV-1 and/orHIV-2. Nonreactive results in this assay for individualswith prior exposure to HIV-1 and/or HIV-2 may be due toantigen and antibody levels that are below the limit ofdetection of this assay.The [facility] HIV Ag/Ab Combo assay result andsupplemental assay results should be interpreted inconjunction with the patient's clinical presentation,history and other laboratory results. If the results areinconsistent with clinical evidence, additional testing issuggested to confirm the result. Blood Venous blood specimen / Unknown 01/13/2024 8:52 AM EDT 01/13/2024 11:22 AM EDT us Lorena Tijerina MD LAB BLOOD ORDERAB LES Final Result Performing Organization Address [facility]/ZIP Co de Phone Number [facility] [address] [place] [address] [phone] * Lipid Panel, Standard (01/13/2024 8:49 AM EDT) Triglycerides 146 <150 mg/dL [facility] Comment:Desirable Triglyceri de: less than 150 mg/dLBorderline High Triglyceride 150-199 mg/dLHigh Triglyceride: 200-499 mg/dLVery High Triglyceride: greater than or equal to 5OO mg/dL Cholesterol 167 <200 mg/dL [facility] Comment:Desirable Cholestero l: less than 200 mg/dLBorderline High Cholesterol: 200-239 mg/dLHigh Cholesterol: greater than 239 mg/dL LDL Cholesterol Calculated 96 <100 mg/dL [facility] Comment:Desirable LDL: less than 100 mg/dLNear Optimal/Above Optimal LDL: 110- 129 mg/dLBorderline High LDL: 130-159 mg/dLHigh LDL: 160-189 mg/dLVery High LDL: greater than or equal to 190 mg/dL HDL Cholesterol 42 >40 mg/dL [facility] Comment:Desirable HDL: great er than 40 mg/dL Note: This HDL assay may give artificially low results in patients with liver disease. Blood Venous blood specimen / Unknown 01/13/2024 8:49 AM EDT 01/13/2024 11:22 AM EDT us Lorena Tijerina MD LAB BLOOD ORDERAB LES Final Result [facility] [address] [place] [phone] * Pap Smear (10/15/2022 3:58 PM EDT) 10/15/2022 3:58 PM EDT 10/16/2022 12:15 PM EDT Narrative [facility] - 11/04/2022 1:15 PM EDT ----- ------- Name: Sagrario Corona ?Age/Sex: 27/F ? : 1995 Unit#: [id number] ?? Attend Dr: Chris Bedoya MD ?Re10/15/22 ?Status: DEP REF ? Location: HO.LNP ?Disch: ? ----- ------- SPEC : [id number] ? RECD: 10/16/22-5 ? STATUS: ??SOUT ? REQ NUM: [id number] ? MARQUIS: 10/15/22-9758 ? SUBM DR: Chris Bedoya MD ? ENTERED: ??10/16/22-1230 ?SP TYPE: Pap Smr ?OTHR DR: ? ORDERED: ??Pap Smear ? Interpretation ?? Satisfactory for evaluation. ?? Negative for intraepithelial lesion or malignancy. ?Clinical Information LMP: 10/10/22 Previous PAP test: Unknown ? Material Received ?? ThinPrep-Cervical ----- ------- Signed (signature on file) Brit Bradshaw Darron 11/04/22 1315 ? ----- ------- ? END OF REPORT ? [employer] External Provider LAB [facility] ORDER[place]LES Final Result [facility] [address] [place] [address] [phone] from Last 3 Months or Most Recently Relevant to Health Maintenance [facility] Care Teams Computer Assistant Relationship Specialty Start Date End Date Lorena Rendon MD [address] [place] [phone] PCP - General Internal Medicine 10/25/22
== END 2024-09-08 15:51 | disposition home or self-care (01) ==
LOC: HO.US 15:50
PROVIDERS: PCP Student in an Organized Health Care Education/Training Program; Visit Provider Obstetrics & Gynecology
DX: R10.2 Pelvic and perineal pain (principal)
CPT/HCPCS: 76830; 76856

== ENCOUNTER → 2024-09-08 15:51 | Outpatient (BNV) | payer MEDICAID, SELFPAY | PROVIDERS: PCP Student in an Organized Health Care Education/Training Program; Visit Provider Radiology Diagnostic Radiology | DX: R10.2 Pelvic and perineal pain (principal) | CPT/HCPCS: 76830; 76856 ==

== ENCOUNTER 2024-09-15 09:22 | Outpatient (AMB) | payer MEDICAID, SELFPAY ==
--- NOTE | 2024-09-15 09:38 | MHC.OFFVIS ---
Intake Visit Reasons: ultrasound follow up Regional Sales Associate Required: Yes Regional Sales Associate Language: Orthodontist Small Business Owner Services: Regional Sales Associate Present (in person) Regional Sales Associate Name: Monica TURCIOS Information Interpreted: non-clinical & clinical Accompanied by: Self / Same As Patient Allergies No Known Allergies Allergy (Verified 09/15/24 09:39) HPI Comments Details: Presenting for follow-up regarding her pelvic pain. The patient is doing well. The following workup was done so far: GC/CT negative. Last visit urine test was negative. Last visit urine dip was negative. Pelvic ultrasound showed the following: Impression: 1. Tubular avascular structure right adnexa probable hydrosalpinx with minimal debris. MRI would be confirmatory contrast would be indicated. 2. Uterus within normal limits. 3. Normal sonographic appearance of the [facility] Anemia Surgical History History of tubal ligation Social History Unable to assess alcohol history related to: Unknown Alcohol intake: never Patient Tobacco Use Status: Never used Tobacco Review of Systems Const All systems reviewed & are unremarkable except as noted in HPI and below Reports as per HPI and Reports no additional complaints GI Reports no additional complaints Reports no additional complaints Physical Exam GI Palpation (GI): Soft to palpation and nontender General: Yes no CVA tenderness External Female Exam: normal external appearance and normal appearance of the urethra Speculum Exam - Vagina: normal appearance of the vagina, normal palpation, no lesions and no masses Speculum Exam - Cervix: normal appearance of the cervix, normal palpation, no lesions, no masses and nontender Bimanual exam- vagina & uterus: normal bimanual exam, normal palpation, uterine size normal, normal palpation, uterine shape normal, No Cervical tenderness present and non-tender Bimanual Exam- Adnexa, other: normal adnexae Back/Spine/Pelvis Back: no CVA tenderness Assessment & Plan Assessment & Plan (1) Hydrosalpinx: Code(s): N70.11 - Chronic salpingitis Category: Medical Plan: Urine test done today was negative. Discussed with the patient the finding on ultrasound possible hydrosalpinx, in addition discussed with the patient normal abdominal and pelvic exam with no evidence of tenderness therefore clinically she does not have any evidence of PID, and there is no indication for antibiotic treatment . Recommended MRI of the pelvis, ordered. Instructions given the patient to schedule an MRI and a follow-up appointment. Orders: Orders MR pelvis wo/w con Today N70.11 - Chronic salpingitis Coding Level of Care Code Est Pt Level 3 (10144) Diagnoses Hydrosalpinx N70.11
--- OUTSIDE RECORDS SUMMARY | 2024-09-15 09:59 | XMS_ITS | Encounter Summary ---
Author Organization [email or web address] Address [address] [place] [address] Care Team Providers Care Supervisor Sound Technician Name Role Phone Lorena Rendon MD Primary Care Pro vider Reason for Visit * Reason Comments Med Refill Encounter Details Date Type Department Care Team ([facility] Contact Info) Description 02/09/2023 Refill [facility] [address] [place] [address] [phone] Lorena Rendon MD [address] [place], [place] [phone] Iron deficiency anemia, unspecified iron deficiency anemia [...] Upcoming Encounters Date Type Department Care Team ([facility] Contact Info) Description 10/28/2024 9:00 AM EDT Office Visit [facility] [address] [place] [address] [phone] Lorena Rendon MD [address] [place] [address] documented as of this encounter Visit Diagnoses Diagnosis Iron deficiency anemia, unspecified iron deficiency anemia type documented in this encounter Additional Health Concerns Assessment Noted Time PHQ-9 Depression Total Score: 0 12/18/19 10:33 AM EDT documented as of this encounter Care Teams Supervisor Sound Technician Relationship Specialty Start Date End Date Lorena Rendon MD [address] [place] [address] PCP - General Internal Medicine 10/25/22 documented as of this encounter
--- OUTSIDE RECORDS SUMMARY | 2024-09-15 09:59 | XMS_ITS | Encounter Summary ---
Author Organization [employer] Address [address] [place] [address] Care Team Providers Care Director Of Regulatory Affairs Name Role Phone Lorena Rendon MD Primary Care Pro vider Encounter Details Date Type Department Care Team (Late st Contact Info) Description 09/08/2024 Orders Only [facility] External Provider, [facility] Social History Tobacco Use Types Packs/Day Years [...] as of this encounter Miscellaneous Notes * Result Encounter Note - Lorena Tijerina MD - 09/08/2024 11:59 PM EDT Image done by outside provider documented in this encounter Plan of Treatment Upcoming Encounters Date Type Department Care Team (Late st Contact Info) Description 10/28/2024 9:00 AM EDT Office Visit [facility] [address] [place] [phone] Lorena Rendon MD [address] [place] [address] documented as of this encounter Procedures Procedure Name Priority Date/Time Associated Diagnosis Comments US PELVIS TRANSVAGINAL Routine 09/10/2024 12:22 PM EDT documented in this encounter Results * US Pelvis Transvaginal (09/10/2024 12:22 PM EDT) Anatomical Region Laterality Modality Pelvis Ultrasound 09/10/2024 12:2 2 PM EDT Narrative 09/10/2024 12:24 PM EDT ? [facility] ?[address] ?[place] [address] ? Ultrasound Report ? Signed ? Patient: Colon Mchugh,Sagrario ?MR#: [id number] ?? [id number] ? : 1995 ?Acct:[id number] ? Age/Sex: 29 / F ?ADM Date: 04/23/25 ? Loc: HO.US ? Attending Dr: Chris Bedoya MD ? Ordering Physician: Chris Bedoya MD ?? Date of Service: 09/08/24 ?? Procedure(s): US pelvic and transvaginal ?? Accession Number(s): [id number] ? cc: Lorena Rendon MD; Chris Bedoya MD ? CLINICAL HISTORY: R10.2 - Pelvic and perineal pain ? US pelvis transabdominal and transvaginal with color Doppler ? Comparison: None ? Findings: ?? Transabdominal scanning performed for overall anatomy. Transvaginal ?? scanning performed for additional detail. ? LMP: Unknown ? Anteverted uterus, normal size and echotexture, measuring 8.0 x 4.0 x 5.3 ?? cm. ?? Well defined endometrium, measuring 5.0 mm in thickness. ? The right ovary measures, 2.4 x 2.1 x 2.3 cm. Normal sonographic ?? appearance right ovary. ?? The left ovary measures, 2.1 x 1.7 x 2.1 cm. Normal sonographic appearance ?? left ovary. ?? Cystic tubular structure right adnexa measuring 7.1 x 4.1 x 4.1 probable ?? hydrosalpinx no associated hyperemia to suggest pyosalpinx although there ?? is minimal dependent debris. ?? No free fluid ? Impression: ?? 1. Tubular avascular structure right adnexa probable hydrosalpinx with ?? minimal debris. MRI would be confirmatory contrast would be indicated. ?? 2. Uterus within normal limits. ?? 3. Normal sonographic appearance of the ovaries ? This document has been electronically signed by: Javier Josue MD on ?? 09/10/2024 12:22:38 ? Dictated By: ?Javier Josue MD ? Signed By: ?<Electronically signed by Javier Josue MD in OV> ?09/10/24 1223 ? DD/ 1222 ? TD/TT: 09/10/24 1222 ? Wrapper Cashier: ? Procedure Note Juan Reveles - 09/10/[address] [address] Ultrasound Report Signed Patient: Teo MchughSagrario#: [id number] : 1995Acct:[id number] Age/Sex: 29 / FADM Date: 09/08/24 Loc: HO.US Attending Dr: Chris Bedoya MD Ordering Physician: Chris Bedoya MD Date of Service: 09/08/24 Procedure(s): US pelvic and transvaginal Accession Number(s): [id number] cc: Lorena Rendon MD; Chris Bedoya MD CLINICAL HISTORY: R10.2 - Pelvic and perineal pain US pelvis transabdominal and transvaginal with color Doppler Comparison: None Findings: Transabdominal scanning performed for overall anatomy. Transvaginal scanning performed for additional detail. LMP: Unknown Anteverted uterus, normal size and echotexture, measuring 8.0 x 4.0 x 5.3 cm. Well defined endometrium, measuring 5.0 mm in thickness. The right ovary measures, 2.4 x 2.1 x 2.3 cm. Normal sonographic appearance right ovary. The left ovary measures, 2.1 x 1.7 x 2.1 cm. Normal sonographic appearance left ovary. Cystic tubular structure right adnexa measuring 7.1 x 4.1 x 4.1 probable hydrosalpinx no associated hyperemia to suggest pyosalpinx although there is minimal dependent debris. No free fluid Impression: 1. Tubular avascular structure right adnexa probable hydrosalpinx with minimal debris. MRI would be confirmatory contrast would be indicated. 2. Uterus within normal limits. 3. Normal sonographic appearance of the ovaries This document has been electronically signed by: Javier Josue MD on 09/10/2024 12:22:38 Dictated By: Javier Josue MD Signed By: <Electronically signed by Javier Josue MD in OV> 09/10/24 1223 DD/ 1222 TD/TT: 09/10/24 1222 Wrapper Cashier: [facility] External Provider IMG US PROCEDURES Edited Result - Final documented in this encounter Visit Diagnoses Not on filedocumented in this encounter Additional Health Concerns Assessment Noted Time PHQ-9 Depression Total Score: 0 10/16/19 24 10:59 AM EDT documented as of this encounter Care Teams Director Of Regulatory Affairs Relationship Specialty Start Date End Date Lorena Rendon MD [address] [place] [phone] PCP - General Internal Medicine 10/25/22 documented as of this encounter
--- OUTSIDE RECORDS SUMMARY | 2024-09-15 09:59 | XMS_ITS | Encounter Summary ---
Author Organization [employer] Address [address] [place] [address] Care Team Providers Care Optoelectronic Technician Name Role Phone Margy [facility] Primary Care Provider [phone] Lorena Rendon MD Primary Care Pro vider Reason for Visit * Reason Comments Med Change Request Encounter Details Date Type Department Care Team ([facility] st Contact Info) Description 08/19/2022 Refill [facility] [address] [place] [address] Crow Bernal FNP Acute rhinosinusitis Social History [...] Office Visit [facility] [address] [place] [address] Lorena Rendon MD [address] [place] [address] documented as of this encounter Visit Diagnoses Diagnosis Acute rhinosinusitis documented in this encounter Care Teams Optoelectronic Technician Relationship Specialty Start Date End Date Juanita Ji FNP [address] [place] [id number] PCP - General Family Medicine 01/15/22 10/24/22 Lorena Rendon MD [address] [place] [phone] PCP - General Internal Medicine 10/25/22 documented as of this encounter
--- OUTSIDE RECORDS SUMMARY | 2024-09-15 09:59 | XMS_ITS | Encounter Summary ---
Author Organization [employer] Address [address] [facility] [address] [place] [address] Care Team Providers Care Program Project Analyst Name Role Phone Lorena Rendon MD Primary Care Pro vider Reason for Visit * Reason Comments Med Refill Encounter Details Date Type Department Care Team ([facility] st Contact Info) Description 07/22/2024 Refill [facility] [address] [place] [address] Lorena Rendon MD [address] [place] [address] Social History Tobacco Use Types Packs/Day Years [...] your housing situation today? I have robert byeer 03/19/[address] you li [...] Description 10/28/2024 9:00 AM EDT Office Visit [facility] [address] [place] [phone] Lorena Rendon MD [address] [place] [phone] documented as of this encounter Visit Diagnoses Not on filedocumented in this encounter Additional Health Concerns Assessment Noted Time PHQ-9 Depression Total Score: 0 10/16/19 24 10:59 AM EDT documented as of this encounter Care Teams Program Project Analyst Relationship Specialty Start Date End Date Lorena Rendon MD [address] [place] [phone] PCP - General Internal Medicine 10/25/22 documented as of this encounter
--- OUTSIDE RECORDS SUMMARY | 2024-09-15 09:59 | XMS_ITS | Clinical Summary ---
Author Organization [employer] Address [address] [place] [address] Care Team Providers Care Political Organizer Name Role Phone Lorena Rendon MD Primary [...] currently taking Fe daily. - Referred to CARDIOVASCULAR RN. - Pt will return to clinic to follow up with PCP in 4-6 weeks to follow labs done today. Resolved Problems Problem Noted Date Diagnosed Date Resolved Date Amenorrhea 09/12/2022 12/17/2022 Overview (10/25/2022): ?? Established with [facility] CARDIOVASCULAR RN ?? Initial labs all WNL ?? Upcoming Assessment & Plan (09/12/2022 10:11 PM EDT): Amenorrhea for 3 months, negative test at home and repeated in urine here today. Denies symptoms concerning for thyroid disease and hyperprolactinemia. - Will check labs. - Referred to terrazzo layer today. Cyst of right ovary 09/12/2022 12/18/19 Assessment & Plan (09/12/2022 10:13 PM EDT): [place] on her phone): enlargement of rt ovary, secondary to 5.2 cm, complex cyst, possibly hemmorhagic. - Referred today to CARDIOVASCULAR RN for further evaluation and imaging. - Papsmear 2019: normal with negative HPV. Encounters Date Type Department Care Team Description 09/08/2024 Orders Only [facility] External Provider, [facility] 08/26/2024 10:00 AM EDT Office Visit [facility] [address] [place] [address] Hyperopia of both eyes (Primary Dx) 08/12/2024 Orders Only GENERIC EXTERNAL DATA DEPARTMENT Provider, Generic External Data 08/11/2024 Orders Only GENERIC EXTERNAL DATA DEPARTMENT Provider, Generic External Data 07/30/2024 Telephone [facility] [address] [place] [address] Lorena Rendon MD October07/30/2024 Population Health Risk Score [facility] Department [address] [facility] [address] [phone] Provider, Population Health Generic 07/26/2024 9:30 AM EDT Office Visit [facility] [address] [place] [address] Gigi, Vickie, OD Hyperopia of both eyes (Primary Dx); Meibomian gland dysfunction 07/26/2024 Travel 07/22/2024 Refill [facility] [address] [facility], [place] [phone] Lorena Rendon MD 07/22/2024 Refill [facility] [address] [facility], [place] [phone] Lorena Rendon MD Acute rhinosinusitis 07/06/2024 Refill [facility] [address] [facility], [place] [phone] Lorena Rendon MD from Last 3 Months [...] Description 10/28/2024 9:00 AM EDT Office Visit [facility] [address] [place] [phone] Lorena Rendon MD [address] [place], [place] [phone] Health Maintenance Due Date Last Done Comments Family Planning (PISQ) 2008 Hepatitis B Vaccines (1 of 3 - 19+ 3-dose series) 2012 COVID-19 Vaccine (2023- season) 2024 12/21/2020, 11/23/2020 Influenza Vaccine (#1) [...] Associated Diagnosis Comments US PELVIS TRANSVAGINAL Routine 12:22 PM EDT CHLAMYDIA/N. GONORRHOEAE RNA, TMA, UROGENITAL Routine 08/12/2024 [...] Recently Relevant to Health Maintenance Results * US Pelvis Transvaginal (09/10/2024 12:22 PM EDT) Anatomical Region Laterality Modality Pelvis Ultrasound 09/10/2024 12:2 2 PM EDT Narrative 09/10/2024 12:24 PM EDT ? [facility] ?[address] ?[place] [address] ? Ultrasound Report ? Signed ? Patient: Colon Mchugh,Asgrario ?MR#: [id number] ?? [id number] ? : 1995 ?Acct:[id number] ? Age/Sex: 29 / F ?ADM Date: 04/23/25 ? Loc: HO.US ? Attending Dr: Chris Bedoya MD ? Ordering Physician: Chris Bedoya MD ?? Date of Service: 09/08/24 ?? Procedure(s): US pelvic and transvaginal ?? Accession Number(s): [id number] ? cc: Lorena Rendon MD; Chris Bedoya [...] document has been electronically signed by: Javier Jsoue MD on ?? 09/10/2024 12:22:38 ? Dictated By: ?Javier Josue MD ? Signed By: ?<Electronically signed by Javier Josue MD in OV> ?09/10/24 1223 ? DD/ 1222 ? TD/TT: 09/10/24 1222 ? Screw Machine Set Up Operator Tool: ? Procedure Note Abdirizak, Juan - 09/10/[address] [address] Ultrasound Report Signed Patient: Clovis Corona#: [id number] : 1995Acct:[id number] Age/Sex: 29 / FADM Date: 09/08/24 Loc: HO.US Attending Dr: Chris Bedoya MD Ordering Physician: Chris Bedoya MD Date of Service: 09/08/24 Procedure(s): US pelvic and transvaginal Accession Number(s): [id number] cc: Lorena Rendon MD; Chris Bedoya MD [...] 09/10/24 1223 DD/ 1222 TD/TT: 09/10/24 1222 Screw Machine Set Up Operator Tool: us [facility] External Provider IMG US PROCEDURES Edited Result - Final * (ABNORMAL) Bacterial Vaginosis (08/12/2024 1:32 PM EDT) TRICHOMONAS VAGINALIS DETECTION BY PCR NOT DETECTED Not Detect [facility] BACTERIAL VAGINOSIS DETECTION BY PCR NEGATIVE Negative [facility] Comment:The BV organism targ ets [...] GROUP DETECTION BY PCR DETECTED(A) Not Detect [facility] Aruna glab krusei PCR NOT DETECTED Not Detect [facility] 08/12/2024 1:32 PM EDT 08/12/2024 3:17 PM EDT us Generic External Data Provider LAB MICROBIOLOGY - GENERAL ORDERABLES Final Result [facility] [address] [place] [phone] * Chlamydia/N. Gonorrhoeae RNA, TMA, Urogenitial (08/12/2024 1:32 PM EDT) CT PCR NOT DETECTED Not Detect. [facility] Comment:A not detected test result [...] psychologicalconsequences. NG PCR NOT DETECTED Not Detect. [facility] Comment:A not detected test result [...] PM EDT 08/12/2024 3:17 PM EDT Narrative [facility] - 08/12/2024 5:30 PM EDT Vaginal us Generic External Data Provider LAB MICROBIOLOGY - GENERAL ORDERABLES Final Result [facility] [address] [place] [phone] * (ABNORMAL) Urinalysis, Complete, with Reflex to Culture (08/11/2024 2:20 AM EDT) Color Urine Yellow [facility] Appearance Urine Clear [facility] PH 8.0 5.0 - 9.0 [facility] Glucose Urine UA Negative Negative mg/dL [facility] Urine Blood Negative Negative [facility] Specific [place] - Urine 1.020 1.005 - 1.025 [facility] Urine Protein Negative Neg-Trace mg/dL [facility] Urine Ketones Negative Negative mg/dL [facility] Nitrite Urine Negative Negative [facility] Leukocyte Esterase Urine Small (1+)(A) Negative [facility] RBC Urine 0-2 0 - 2 /HPF [facility] Urine WBC 0-5 0 - 5 /HPF [facility] Urine Squamous Epithelial Cell 11-20 0 - 2 /HPF [facility] Urine Bacteria None Seen None Seen [facility] Hyaline Casts, Urine 0-2 0 - 2 /LPF [facility] 08/11/2024 2:20 AM EDT 08/11/2024 2:24 AM EDT Narrative [facility] - 08/11/2024 2:42 AM EDT Urine, Clean Catch us Generic External Data Provider LAB URINE ORDERAB LES Final Result [facility] [address] [place] [phone] * (ABNORMAL) CBC auto differential (08/11/2024 1:47 AM EDT) White Blood Count 12.0(H) 4.8 - 10.8 X10*3/uL [facility] Red Blood Count 3.92(L) 4.20 - 5.50 X10*6/uL [facility] Hemoglobin 11.6(L) 12.0 - 16.0 g/dl [facility] Hematocrit 33.1(L) 37.0 - 47.0 % [facility] Mean Corpuscular Volume 84.4 80.0 - 98.0 fL [facility] Mean Corpuscular Hemoglobin 29.6 27.0 - 33.0 pg [facility] Mean Corpuscular HGB Conc 35.0 31.0 - 35.0 g/dl [facility] Red Cell Distribution Width 12.7 11.0 - 16.0 % [facility] Platelet Count 273 160 - 400 X10*3/uL [facility] Mean Platelet Volume 9.9 9.4 - 12.3 fL [facility] Neutrophils Percent Auto 61.8 45 - 73 % [facility] Imm Gran Pct Auto 0.3 0.0 - 0.4 % [facility] Lymphocytes Percent Auto 30.1 20 - 40 % [facility] Monocytes Percent Auto 6.4 2 - 11 % [facility] Eosinophils Percent Auto 1.1 0 - 4 % [facility] Basophils Percent Auto 0.3 0 - 2 % [facility] NRBC Pct Auto 0.0 0.0 - 0.2 /100WBC [facility] Neutrophils Absolute Auto 7.4 2.0 - 8.3 x10*3/uL [facility] Imm Gran Abs Auto 0.03 0.00 - 0.03 X10*3/uL [facility] Lymphocytes Absolute Auto 3.6 1.2 - 4.9 X10*3/uL [facility] Monocytes Absolute Auto 0.8 0.1 - 1.2 X10*3/uL [facility] Eosinophils Absolute Auto 0.1 0.0 - 0.4 X10*3/uL [facility] Basophils Absolute Auto 0.0 0.0 - 0.2 X10*3/uL [facility] NRBC Abs Auto 0.000 0.0 - 0.012 X10*3/uL [facility] 08/11/2024 1:47 AM EDT 08/11/2024 1:51 AM EDT Generic External Data Provider LAB BLOOD ORDERAB LES Final Result Performing Organization Address [facility]/ZIP Co de Phone Number [facility] [address] [place] [phone] * Lipase (08/11/2024 1:47 AM EDT) Pathologist [facility] Lipase 13 8 - 78 U/L [facility] 08/11/2024 1:47 AM EDT 08/11/2024 1:51 AM EDT Generic External Data Provider LAB BLOOD ORDERAB LES Final Result Performing Organization Address [facility] Co de Phone Number [facility] [address] [place] [phone] * (ABNORMAL) Comprehensive Metabolic Panel (08/11/2024 1:47 AM EDT) Pathologist [facility] Sodium 143 135 - 145 mmol/L [facility] Potassium 3.7 3.3 - 5.1 mmol/L [facility] Chloride 109(H) 96 - 108 mmol/L [facility] Carbon Dioxide 23 22 - 29 mmol/L [facility] Anion Gap 15 12 - 20 [facility] Urea Nitrogen (BUN) 12 9 - 16 mg/dL [facility] Creatinine, Serum 0.77 0.5 - 1.4 mg/dL [facility] Creatinine Clr Calc Pharmacy 101.7 [facility] Comment:Provided height and weight: 157.48 cm,77.111 kg.eGFR (calculated from the MDRD study equation) and eCrCl(calculated from the Cockcroft-Gault equation) are based ondifferent parameters and may not yield comparable results.If eCrCl result is absurd, please check patient'sheight/weight. Estimated Glomerular Filt Rate >60 [facility] Comment:Chronic Kidney Disea se: Estimated GFR < 60 mL/min/1.43w1Tkxngl Kidney Disease: Estimated GFR < 15 mL/min/1.73m2 Glucose 91 60 - 115 mg/dL [facility] Calcium 9.3 8.4 - 10.2 mg/dL [facility] Bilirubin, Total 0.2 0.0 - 1.0 mg/dL [facility] Aspartate Amino Transferase 16 5 - 31 U/L [facility] Alanine Aminotransferase 15 0 - 31 U/L [facility] Total Protein 7.2 6.5 - 8.0 g/dL [facility] Albumin Level 4.1 3.5 - 5.0 g/dL [facility] Alkaline Phosphatase 86 39 - 117 U/L [facility] 08/11/2024 1:47 AM EDT 08/11/2024 1:51 AM EDT us Generic External Data Provider LAB BLOOD ORDERAB LES Final Result [facility] [address] [place] [phone] * Culture, Urine, Routine (08/11/2024 12:00 AM EDT) Urine Urine specimen obtained by clean catch procedure / Unknown 08/11/2024 08/11/2024 Comment:UACC Narrative [facility] - 08/12/2024 11:25 AM EDT Urine Culture Report Result Urine Culture < 10,000 cfu/ml Specimen Source: Urine clean catch us Generic External Data Provider LAB MICROBIOLOGY - GENERAL ORDERABLES Final Result Performing Organization Address [facility]/ZIP Co de Phone Number [facility] [address] [place] [phone] * Hepatitis C Antibody with Reflex to HCV, RNA, Quantitative, Real-Time PCR (01/13/2024 8:52 AM EDT) Hepatitis C Antibody Nonreactive Nonreactive [facility] Comment:Antibodies to HCV no t detected; does not exclude early acuteHCV infection. Blood Venous blood specimen / Unknown 01/13/2024 8:52 AM EDT 01/13/2024 11:22 AM EDT us Lorena Tijerina MD LAB BLOOD ORDERAB LES Final Result Performing Organization Address [facility]/ZIP Co de Phone Number [facility] [address] [place] [phone] * HIV-1/2 Antigen and Antibodies, Fourth Generation, with Reflexes (01/13/2024 8:52 AM EDT) HIV AB/AG Nonreactive Nonreactive [facility] Comment:HIV-1 p24 Ag and/or HIV-1/HIV-2 Ab not detected.A test result that is nonreactive does not exclude thepossibility of exposure to or infection with HIV-1 and/orHIV-2. Nonreactive results in this assay for individualswith prior exposure to HIV-1 and/or HIV-2 may be due toantigen and antibody levels that are below the limit ofdetection of this assay.The [employer] HIV Ag/Ab Combo assay result andsupplemental assay results should be interpreted inconjunction with the patient's clinical presentation,history and other laboratory results. If the results areinconsistent with clinical evidence, additional testing issuggested to confirm the result. Blood Venous blood specimen / Unknown 01/13/2024 8:52 AM EDT 01/13/2024 11:22 AM EDT us Lorena Tijerina MD LAB BLOOD ORDERAB LES Final Result Performing Organization Address [facility] Co de Phone Number [facility] [address] [place] [phone] * Lipid Panel, Standard (01/13/2024 8:49 AM EDT) Triglycerides 146 <150 mg/dL [facility] Comment:Desirable Triglyceri de: less than 150 mg/dLBorderline High Triglyceride 150-199 mg/dLHigh Triglyceride: 200-499 mg/dLVery High Triglyceride: greater than or equal to 5OO mg/dL Cholesterol 167 <200 mg/dL [facility] Comment:Desirable Cholestero l: less than 200 mg/dLBorderline High Cholesterol: 200-239 mg/dLHigh Cholesterol: greater than 239 mg/dL LDL Cholesterol Calculated 96 <100 mg/dL [facility] Comment:Desirable LDL: less than 100 mg/dLNear Optimal/Above Optimal LDL: 110- 129 mg/dLBorderline High LDL: 130-159 mg/dLHigh LDL: 160-189 mg/dLVery High LDL: greater than or equal to 190 mg/dL HDL Cholesterol 42 >40 mg/dL [facility] Comment:Desirable HDL: great er than 40 mg/dL Note: This HDL assay may give artificially low results in patients with liver disease. Blood Venous blood specimen / Unknown 01/13/2024 8:49 AM EDT 01/13/2024 11:22 AM EDT us Lorena Tijerina MD LAB BLOOD ORDERAB LES Final Result Performing Organization Address City/[facility]/ZIP Co de Phone Number [facility] [address] [place] [phone] * Pap Smear (10/15/2022 3:58 PM EDT) 10/15/2022 3:58 PM EDT 10/16/2022 12:15 PM EDT [facility] - 11/04/2022 1:15 PM EDT ----- ------- Name: Colon Mchugh,Sagrario ?Age/Sex: 27/F ? : 1995 Unit#: [id number] ?? Attend Dr: Chris Bedoya MD ?Re10/15/22 ?Status: DEP REF ? Location: HO.LNP ?Disch: ? ----- ------- SPEC : [id number] ? RECD: 10/16/22-1215 ? STATUS: ??SOUT ? REQ NUM: [id number] ? MARQUIS: 10/15/22-8258 ? SUBM DR: Chris Bedoya MD ? ENTERED: ??10/16/22-1239 ?SP TYPE: Pap Smr ?OTHR : ? ORDERED: ??Pap Smear ? Interpretation ?? Satisfactory for evaluation. ?? Negative for intraepithelial lesion or malignancy. ?Clinical Information LMP: 10/10/22 Previous PAP test: Unknown ? Material Received ?? ThinPrep-Cervical ----- ------- Signed (signature on file) Brit Bradshaw Darron 11/04/22 [id number] ? ----- ------- ? END OF REPORT ? [facility] External Provider LAB [facility] OLOG[facility] ORDERABLES Final Result [facility] [address] [place] [phone] from Last 3 Months or Most Recently Relevant to Health Maintenance Insurance [facility] C3 Care Teams Political Organizer Relationship Specialty Start Date End Date Lorena Rendon MD [address] [place] [phone] PCP - General Internal Medicine 10/25/22
== END 2024-09-15 10:06 | disposition home or self-care (01) ==
LOC: HO.HWS 09:22
PROVIDERS: PCP Student in an Organized Health Care Education/Training Program; Visit Provider Obstetrics & Gynecology
DX: N70.11 Chronic salpingitis (principal); Z32.02 Encounter for pregnancy test, result negative
CPT/HCPCS: 99213

== ENCOUNTER → 2024-09-15 09:22 | Outpatient (BNVA) | payer MEDICAID, SELFPAY | PROVIDERS: PCP Student in an Organized Health Care Education/Training Program; Visit Provider Obstetrics & Gynecology | DX: N70.11 Chronic salpingitis (principal) | CPT/HCPCS: 81025; 99212 ==

== ENCOUNTER → 2024-09-23 10:11 | Outpatient (BNV) | payer MEDICAID, SELFPAY | PROVIDERS: PCP Student in an Organized Health Care Education/Training Program; Visit Provider Radiology Diagnostic Radiology | DX: N83.202 Unspecified ovarian cyst, left side (principal) | CPT/HCPCS: 72197 ==

== ENCOUNTER 2024-09-23 10:14 | Outpatient (REF) | payer MEDICAID, SELFPAY ==
--- NOTE | ~2024-09-23 | MR_ITS ---
EXAMINATION: MR PELVIS WITHOUT THEN WITH IV CONTRAST HISTORY: N70.11 - Chronic salpingitis. TECHNIQUE: Axial T1, axial fat suppressed T1, axial oblique fat suppressed T2, and sagittal, axial, and coronal T2-weighted MR images of the pelvis were obtained. Subsequently fat-suppressed axial and sagittal T1-weighted images were obtained after the intravenous injection of 7.5 mm Gadavist. COMPARISON: Correlation is made with a pelvic ultrasound dated 09/08/[address] of the abdomen and pelvis with contrast dated 04/07/2023. FINDINGS: There are nabothian cysts in the cervix. No uterine fibroids are identified. The junctional zone is not thickened. The endometrium is unremarkable in appearance. There is a cyst in the vagina. The right ovary is unremarkable in appearance, demonstrating multiple small follicles. There is a tubular structure in the right adnexa adjacent to the right ovary, measuring approximately 2.3 cm in diameter and approximately 5 cm in length, compatible with a hydrosalpinx. No internal soft tissue is identified. There is no abnormal contrast enhancement. There is a 3.6 x 3.4 x 3.9 cm unilocular cyst in the left adnexa. There is trace fluid in the bilateral adnexal regions. There is no pelvic adenopathy. The visualized bones demonstrate normal marrow signal intensity. MR/MR pelvis wo/w con IMPRESSION: 1. 5.0 cm tubular structure in the right adnexa adjacent to the ovary, compatible with a hydrosalpinx. 2. 3.6 x 3.4 x 3.9 cm left ovarian cyst. Follow-up is suggested to document resolution. Electronically signed by: Lang Pina MD 09/23/2024 12:49 PM EDT
--- OUTSIDE RECORDS SUMMARY | 2024-09-23 11:24 | XMS_ITS | Clinical Summary ---
Author Organization [employer] Address [address] [place] [address] Care Team Providers Care Design Printing Machine Setter Name Role Phone Lorena Rendon MD Primary [...] currently taking Fe daily. - Referred to MECHANICAL ASSEMBLER. - Pt will return to clinic to follow up with PCP in 4-6 weeks to follow labs done today. Resolved Problems Problem Noted Date Diagnosed Date Resolved Date Amenorrhea 09/12/2022 12/17/2022 Overview (10/25/2022): ?? Established with [facility] MECHANICAL ASSEMBLER ?? Initial labs all WNL ?? Upcoming Assessment & Plan (09/12/2022 10:11 PM EDT): Amenorrhea for 3 months, negative test at home and repeated in urine here today. Denies symptoms concerning for thyroid disease and hyperprolactinemia. - Will check labs. - Referred to survey party chief today. Cyst of right ovary 09/12/2022 12/18/19 Assessment & Plan (09/12/2022 10:13 PM EDT): [place] on her phone): enlargement of rt ovary, secondary to 5.2 cm, complex cyst, possibly hemmorhagic. - Referred today to MECHANICAL ASSEMBLER for further evaluation and imaging. - Papsmear 2019: normal with negative HPV. Encounters Date Type Department Care Team Description 09/08/2024 Orders Only [facility] External Provider, [facility] 08/26/2024 10:00 AM EDT Office Visit [facility] [address] [place] [address] Hyperopia of both eyes (Primary Dx) 08/12/2024 Orders Only GENERIC EXTERNAL DATA DEPARTMENT Provider, Generic External Data 08/11/2024 Orders Only GENERIC EXTERNAL DATA DEPARTMENT Provider, Generic External Data 07/30/2024 Telephone [facility]INE [address] [place] [address] Lorena Rendon MD October07/30/2024 Population Health Risk Score [facility] Department [address] [facility] [address] [phone] Provider, Population Health Generic 07/26/2024 9:30 AM EDT Office Visit [facility] [address] [place] [address] Gigi, Vickie, OD Hyperopia of both eyes (Primary Dx); Meibomian gland dysfunction 07/26/2024 Travel 07/22/2024 Refill [facility] [address] [facility], [place] [phone] Lorena Rendon MD 07/22/2024 Refill [facility] [address] [facility], [place] [phone] Lorena Rendon MD Acute rhinosinusitis 07/06/2024 Refill [facility] [address] [facility], [place] [phone] Lorena Rendon MD from Last 3 Months [...] Description 10/28/2024 9:00 AM EDT Office Visit [facility] [address] [place] [address] [phone] Lorena Rendon MD [address] [place], [place] [phone] Health Maintenance Due Date Last Done Comments [...] EDT Narrative 09/10/2024 12:24 PM EDT ? [facility] ?[address] ?[place] [address] ? Ultrasound Report ? Signed ? Patient: Colon Mchugh,Sagrario ?MR#: [id number] ?? [id number] ? : 1995 ?Acct:[id number] ? Age/Sex: 29 / F ?ADM Date: 04/23/25 ? Loc: HO.US ? Attending Dr: Chris Bedoya MD ? Ordering Physician: Chris Bedoya MD ?? Date of Service: 09/08/24 ?? Procedure(s): US pelvic and transvaginal ?? Accession Number(s): [id number] ? cc: Lorena Rendon MD; Chris Bedoya [...] DD/ 1222 ? TD/TT: 09/10/24 1222 ? Credit Risk Officer: ? Procedure Note Abdirizak, Juan - 09/10/[address] [address] Ultrasound Report Signed Patient: Clovis Corona#: [id number] : 1995Acct:[id number] Age/Sex: 29 / FADM Date: 09/08/24 Loc: HO.US Attending Dr: Chris Bedoya MD Ordering Physician: Chris Bedoya MD Date of Service: 09/08/24 Procedure(s): US pelvic and transvaginal Accession Number(s): [id number] cc: Lorena Rendon MD; Chris Bedoya MD [...] 09/10/24 1223 DD/ 1222 TD/TT: 09/10/24 1222 Credit Risk Officer: us [facility] External Provider IMG US PROCEDURES Edited Result - Final * (ABNORMAL) Bacterial Vaginosis (08/12/2024 1:32 PM EDT) TRICHOMONAS VAGINALIS DETECTION BY PCR NOT DETECTED Not Detect [facility] BACTERIAL VAGINOSIS DETECTION BY PCR NEGATIVE Negative [facility] Comment:The BV organism targ ets of [...] GROUP DETECTION BY PCR DETECTED(A) Not Detect [facility] Aruna glab krusei PCR NOT DETECTED Not Detect [facility] 08/12/2024 1:32 PM EDT 08/12/2024 3:17 PM EDT us Generic External Data Provider LAB MICROBIOLOGY - GENERAL ORDERABLES Final Result [facility] [address] [place] [phone] * Chlamydia/N. Gonorrhoeae RNA, TMA, Urogenitial (08/12/2024 1:32 PM EDT) CT PCR NOT DETECTED Not Detect. [facility] Comment:A not detected test result does [...] psychologicalconsequences. NG PCR NOT DETECTED Not Detect. [facility] Comment:A not detected test result does [...] PM EDT 08/12/2024 3:17 PM EDT Narrative [facility] - 08/12/2024 5:30 PM EDT Vaginal us Generic External Data Provider LAB MICROBIOLOGY - GENERAL ORDERABLES Final Result [facility] [address] [place] [phone] * (ABNORMAL) Urinalysis, Complete, with Reflex to Culture (08/11/2024 2:20 AM EDT) Color Urine Yellow [facility] Appearance Urine Clear [facility] PH 8.0 5.0 - 9.0 [facility] Glucose Urine UA Negative Negative mg/dL [facility] Urine Blood Negative Negative [facility] Specific [place] - Urine 1.020 1.005 - 1.025 [facility] Urine Protein Negative Neg-Trace mg/dL [facility] Urine Ketones Negative Negative mg/dL [facility] Nitrite Urine Negative Negative [facility] Leukocyte Esterase Urine Small (1+)(A) Negative [facility] RBC Urine 0-2 0 - 2 /HPF [facility] Urine WBC 0-5 0 - 5 /HPF [facility] Urine Squamous Epithelial Cell 11-20 0 - 2 /HPF [facility] Urine Bacteria None Seen None Seen [facility] Hyaline Casts, Urine 0-2 0 - 2 /LPF [facility] 08/11/2024 2:20 AM EDT 08/11/2024 2:24 AM EDT Narrative [facility] - 08/11/2024 2:42 AM EDT Urine, Clean Catch us Generic External Data Provider LAB URINE ORDERAB LES Final Result [facility] [address] [place] [phone] * (ABNORMAL) CBC auto differential (08/11/2024 1:47 AM EDT) White Blood Count 12.0(H) 4.8 - 10.8 X10*3/uL [facility] Red Blood Count 3.92(L) 4.20 - 5.50 X10*6/uL [facility] Hemoglobin 11.6(L) 12.0 - 16.0 g/dl [facility] Hematocrit 33.1(L) 37.0 - 47.0 % [facility] Mean Corpuscular Volume 84.4 80.0 - 98.0 fL [facility] Mean Corpuscular Hemoglobin 29.6 27.0 - 33.0 pg [facility] Mean Corpuscular HGB Conc 35.0 31.0 - 35.0 g/dl [facility] Red Cell Distribution Width 12.7 11.0 - 16.0 % [facility] Platelet Count 273 160 - 400 X10*3/uL [facility] Mean Platelet Volume 9.9 9.4 - 12.3 fL [facility] Neutrophils Percent Auto 61.8 45 - 73 % [facility] Imm Gran Pct Auto 0.3 0.0 - 0.4 % [facility] Lymphocytes Percent Auto 30.1 20 - 40 % [facility] Monocytes Percent Auto 6.4 2 - 11 % [facility] Eosinophils Percent Auto 1.1 0 - 4 % [facility] Basophils Percent Auto 0.3 0 - 2 % [facility] NRBC Pct Auto 0.0 0.0 - 0.2 /100WBC [facility] Neutrophils Absolute Auto 7.4 2.0 - 8.3 x10*3/uL [facility] Imm Gran Abs Auto 0.03 0.00 - 0.03 X10*3/uL [facility] Lymphocytes Absolute Auto 3.6 1.2 - 4.9 X10*3/uL [facility] Monocytes Absolute Auto 0.8 0.1 - 1.2 X10*3/uL [facility] Eosinophils Absolute Auto 0.1 0.0 - 0.4 X10*3/uL [facility] Basophils Absolute Auto 0.0 0.0 - 0.2 X10*3/uL [facility] NRBC Abs Auto 0.000 0.0 - 0.012 X10*3/uL [facility] 08/11/2024 1:47 AM EDT 08/11/2024 1:51 AM EDT Generic External Data Provider LAB BLOOD ORDERAB LES Final Result Performing Organization Address [facility]/ZIP Co de Phone Number [facility] [address] [place] [phone] * Lipase (08/11/2024 1:47 AM EDT) Pathologist [facility] Lipase 13 8 - 78 U/L [facility] 08/11/2024 1:47 AM EDT 08/11/2024 1:51 AM EDT Generic External Data Provider LAB BLOOD ORDERAB LES Final Result Performing Organization Address [facility] Co de Phone Number [facility] [address] [place] [phone] * (ABNORMAL) Comprehensive Metabolic Panel (08/11/2024 1:47 AM EDT) Pathologist [facility] Sodium 143 135 - 145 mmol/L [facility] Potassium 3.7 3.3 - 5.1 mmol/L [facility] Chloride 109(H) 96 - 108 mmol/L [facility] Carbon Dioxide 23 22 - 29 mmol/L [facility] Anion Gap 15 12 - 20 [facility] Urea Nitrogen (BUN) 12 9 - 16 mg/dL [facility] Creatinine, Serum 0.77 0.5 - 1.4 mg/dL [facility] Creatinine Clr Calc Pharmacy 101.7 [facility] Comment:Provided height and weight: 157.48 cm,77.111 kg.eGFR (calculated from the MDRD study equation) and eCrCl(calculated from the Cockcroft-Gault equation) are based ondifferent parameters and may not yield comparable results.If eCrCl result is absurd, please check patient'sheight/weight. Estimated Glomerular Filt Rate >60 [facility] Comment:Chronic Kidney Disea se: Estimated GFR < 60 mL/min/1.17n1Tspvet Kidney Disease: Estimated GFR < 15 mL/min/1.73m2 Glucose 91 60 - 115 mg/dL [facility] Calcium 9.3 8.4 - 10.2 mg/dL [facility] Bilirubin, Total 0.2 0.0 - 1.0 mg/dL [facility] Aspartate Amino Transferase 16 5 - 31 U/L [facility] Alanine Aminotransferase 15 0 - 31 U/L [facility] Total Protein 7.2 6.5 - 8.0 g/dL [facility] Albumin Level 4.1 3.5 - 5.0 g/dL [facility] Alkaline Phosphatase 86 39 - 117 U/L [facility] 08/11/2024 1:47 AM EDT 08/11/2024 1:51 AM EDT us Generic External Data Provider LAB BLOOD ORDERAB LES Final Result [facility] [address] [place] [phone] * Culture, Urine, Routine (08/11/2024 12:00 AM EDT) Urine Urine specimen obtained by clean catch procedure / Unknown 08/11/2024 08/11/2024 Comment:UACC Narrative [facility] - 08/12/2024 11:25 AM EDT Urine Culture Report Result Urine Culture < 10,000 cfu/ml Specimen Source: Urine clean catch us Generic External Data Provider LAB MICROBIOLOGY - GENERAL ORDERABLES Final Result Performing Organization Address [facility]/ZIP Co de Phone Number [facility] [address] [place] [address] [phone] * Hepatitis C Antibody with Reflex to HCV, RNA, Quantitative, Real-Time PCR (01/13/2024 8:52 AM EDT) Hepatitis C Antibody Nonreactive Nonreactive [facility] Comment:Antibodies to HCV no t detected; does not exclude early acuteHCV infection. Blood Venous blood specimen / Unknown 01/13/2024 8:52 AM EDT 01/13/2024 11:22 AM EDT us Lorena Tijerina MD LAB BLOOD ORDERAB LES Final Result Performing Organization Address [facility]/ZIP Co de Phone Number [facility] [address] [place] [phone] * HIV-1/2 Antigen and Antibodies, Fourth Generation, with Reflexes (01/13/2024 8:52 AM EDT) HIV AB/AG Nonreactive Nonreactive [facility] Comment:HIV-1 p24 Ag and/or HIV-1/HIV-2 Ab not detected.A test result that is nonreactive does not exclude thepossibility of exposure to or infection with HIV-1 and/orHIV-2. Nonreactive results in this assay for individualswith prior exposure to HIV-1 and/or HIV-2 may be due toantigen and antibody levels that are below the limit ofdetection of this assay.The [employer] HIV Ag/Ab Combo assay result andsupplemental assay results should be interpreted inconjunction with the patient's clinical presentation,history and other laboratory results. If the results areinconsistent with clinical evidence, additional testing issuggested to confirm the result. Blood Venous blood specimen / Unknown 01/13/2024 8:52 AM EDT 01/13/2024 11:22 AM EDT us Lorena Tijerina MD LAB BLOOD ORDERAB LES Final Result Performing Organization Address [facility] Co de Phone Number [facility] [address] [place] [address] [phone] * Lipid Panel, Standard (01/13/2024 8:49 AM EDT) Triglycerides 146 <150 mg/dL [facility] Comment:Desirable Triglyceri de: less than 150 mg/dLBorderline High Triglyceride 150-199 mg/dLHigh Triglyceride: 200-499 mg/dLVery High Triglyceride: greater than or equal to 5OO mg/dL Cholesterol 167 <200 mg/dL [facility] Comment:Desirable Cholestero l: less than 200 mg/dLBorderline High Cholesterol: 200-239 mg/dLHigh Cholesterol: greater than 239 mg/dL LDL Cholesterol Calculated 96 <100 mg/dL [facility] Comment:Desirable LDL: less than 100 mg/dLNear Optimal/Above Optimal LDL: 110- 129 mg/dLBorderline High LDL: 130-159 mg/dLHigh LDL: 160-189 mg/dLVery High LDL: greater than or equal to 190 mg/dL HDL Cholesterol 42 >40 mg/dL [facility] Comment:Desirable HDL: great er than 40 mg/dL Note: This HDL assay may give artificially low results in patients with liver disease. Blood Venous blood specimen / Unknown 01/13/2024 8:49 AM EDT 01/13/2024 11:22 AM EDT us Lorena Tijerina MD LAB BLOOD ORDERAB LES Final Result Performing Organization Address City/[facility]/ZIP Co de Phone Number [facility] [address] [place] [phone] * Pap Smear (10/15/2022 3:58 PM EDT) 10/15/2022 3:58 PM EDT 10/16/2022 12:15 PM EDT [facility] - 11/04/2022 1:15 PM EDT ----- ------- Name: Colon Mchugh,Sagrario ?Age/Sex: 27/F ? : 1995 Unit#: [id number] ?? Attend Dr: Chris Bedoya MD ?Re10/15/22 ?Status: DEP REF ? Location: HO.LNP ?Disch: ? ----- ------- SPEC : [id number] ? RECD: 10/16/22-1215 ? STATUS: ??SOUT ? REQ NUM: [id number] ? MARQUIS: 10/15/22-1885 ? SUBM DR: Chris Bedoya MD ? ENTERED: ??10/16/22-1239 ?SP TYPE: Pap Smr ?OTHR : ? ORDERED: ??Pap Smear ? Interpretation ?? Satisfactory for evaluation. ?? Negative for intraepithelial lesion or malignancy. ?Clinical Information LMP: 10/10/22 Previous PAP test: Unknown ? Material Received ?? ThinPrep-Cervical ----- ------- Signed (signature on file) Brit Bradshaw Darron 11/04/22 4255 ? ----- ------- ? END OF REPORT ? [facility] External Provider LAB [facility] OLOGY ORDERABLES Final Result [facility] [address] [place] [phone] from Last 3 Months or Most Recently Relevant to Health Maintenance Insurance [facility] C3 Care Teams Design Printing Machine Setter Relationship Specialty Start Date End Date Lorena Rendon MD [address] [place] [phone] PCP - General Internal Medicine 10/25/22
--- OUTSIDE RECORDS SUMMARY | 2024-09-23 11:24 | XMS_ITS | Encounter Summary ---
Author Organization [employer] Address [address] [place] [address] Care Team Providers Care Lubricating Specialist Name Role Phone Margy [facility] Primary Care Provider [phone] Lorena Rendon MD Primary Care Pro vider Reason for Visit * Reason Comments Med Change Request Encounter Details Date Type Department Care Team ([facility] st Contact Info) Description 08/19/[address] [facility] [address] [place] [address] Crow Bernal FNP Acute rhinosinusitis Social History [...] Description 10/28/2024 9:00 AM EDT Office Visit [facility] [address] [place] [phone] Lorena Rendon MD [address] [place] [address] documented as of this encounter Visit Diagnoses Diagnosis Acute rhinosinusitis documented in this encounter Care Teams Lubricating Specialist Relationship Specialty Start Date End Date Juanita Ji FNP [address] [place] [phone] PCP - General Family Medicine 01/15/22 10/24/22 Lorena Rendon MD [address] [place] [phone] PCP - General Internal Medicine 10/25/22 documented as of this encounter
--- OUTSIDE RECORDS SUMMARY | 2024-09-23 11:24 | XMS_ITS | Encounter Summary ---
Author Organization [employer] Address [address] [facility] [address] [place] [address] Care Team Providers Care Calender Wind Up Tender Name Role Phone Lorena Rendon MD Primary Care Pro vider Reason for Visit * Reason Comments Med Refill Encounter Details Date Type Department Care Team ([facility] st Contact Info) Description 07/22/2024 Refill [facility] [address] [place] [address] Lorena Rendon MD [address] [place] [address] Social History Tobacco Use Types Packs/Day Years [...] Description 10/28/2024 9:00 AM EDT Office Visit [facility] [address] [place] [phone] Lorena Rendon MD [address] [place] [phone] documented as of this encounter Visit Diagnoses Not on filedocumented in this encounter Additional Health Concerns Assessment Noted Time PHQ-9 Depression Total Score: 0 10/16/19 24 10:59 AM EDT documented as of this encounter Care Teams Calender Wind Up Tender Relationship Specialty Start Date End Date Lorena Rendon MD [address] [place] [phone] PCP - General Internal Medicine 10/25/22 documented as of this encounter
--- OUTSIDE RECORDS SUMMARY | 2024-09-23 11:24 | XMS_ITS | Encounter Summary ---
Author Organization [employer] Address [address] [place] [address] Care Team Providers Care Applied Biology Professor Name Role Phone Lorena Rendon MD Primary Care Pro vider Reason for Visit * Reason Comments Med Refill Encounter Details Date Type Department Care Team ([facility] Contact Info) Description 02/09/2023 Refill [facility] [address] [place] [address] [phone] Lorena Rendon MD [address] [place], [place] [phone] Iron deficiency anemia, unspecified iron deficiency anemia [...] Upcoming Encounters Date Type Department Care Team ([facility] Contact Info) Description 10/28/2024 9:00 AM EDT Office Visit [facility] [address] [place] [address] [phone] Lorena Rendon MD [address] [place] [address] documented as of this encounter Visit Diagnoses Diagnosis Iron deficiency anemia, unspecified iron deficiency anemia type documented in this encounter Additional Health Concerns Assessment Noted Time PHQ-9 Depression Total Score: 0 12/18/19 10:33 AM EDT documented as of this encounter Care Teams Applied Biology Professor Relationship Specialty Start Date End Date Lorena Rendon MD [address] [place] [address] PCP - General Internal Medicine 10/25/22 documented as of this encounter
[2024-09-23] MEDS: gadobutroL 7.5 ML VIAL IVPUSH (11:53)
== END 2024-09-23 10:15 | disposition home or self-care (01) ==
LOC: HO.MRI 10:14
PROVIDERS: PCP Student in an Organized Health Care Education/Training Program; Visit Provider Obstetrics & Gynecology
DX: N70.11 Chronic salpingitis (principal)
CPT/HCPCS: 72197; A9585

== ENCOUNTER 2024-11-18 10:20 | Outpatient (AMB) | payer SELFPAY ==
--- NOTE | 2024-11-18 10:21 | MHC.OFFVIS ---
Intake Visit Reasons: MRI results Hot Water Heater Installer Required: Yes Hot Water Heater Installer Language: Cnc Mill Operator Services: Hot Water Heater Installer Present (in person) Hot Water Heater Installer Name: Monica TURCIOS Information Interpreted: non-clinical & clinical Allergies No Known Allergies Allergy (Verified 11/18/24 10:21) HPI Comments Details: The patient scheduled a telehealth visit for follow-up. No pelvic pain no fever or chills no any other concerns Pelvic MRI showed the following: IMPRESSION: 1. 5.0 cm tubular structure in the right adnexa adjacent to the ovary, compatible with a hydrosalpinx. 2. 3.6 x 3.4 x 3.9 cm left ovarian cyst. Follow-up is suggested to document resolution. [facility] Medical History Anemia Surgical History History of tubal ligation Social History Unable to assess alcohol history related to: Unknown Alcohol intake: never Patient Tobacco Use Status: Never used Tobacco Review of Systems Const All systems reviewed & are unremarkable except as noted in HPI and below Reports as per HPI and Reports no additional complaints GI Reports no additional complaints Reports no additional complaints Telehealth Telehealth Telehealth Platform: Telephone Location of provider rendering services: practice address Location of patient: address on file Patient Identification confirmed using: Name, : Yes Telehealth method: video Patient verbally consented to treatment: Yes Patient verbally consented to billing insurance company: Yes Patient informed of any privacy concerns related to visit: Yes Minutes spent on Phone/Video with Pt.: 4 Assessment & Plan Assessment & Plan (1) Hydrosalpinx: Code(s): N70.11 - Chronic salpingitis Category: Medical Plan: Discussed with the patient the finding on pelvic MRI showing a right hydrosalpinx, since the patient is not having any pain, fever, no nausea or vomiting, recommended expectant management. Instructions given to patient to call in case of pelvic pain, fever above 100.4, nausea and vomiting. All questions answered, the patient verbalized understanding (2) Ovarian cyst: Code(s): N83.209 - Unspecified ovarian cyst, unspecified side Category: Medical Plan: Discussed with the patient the finding on ovarian cyst, will order the ultrasound to document the resolution of the ovarian cyst. Instructions given the patient to schedule an ultrasound and a follow-up appointment. All questions answered, the patient verbalized understanding. I spent a total of 20 minutes reviewing the chart, talking to the patient via video and documenting in the medical record. Orders: Orders US pelvic and transvaginal Today N83.209 - Unspecified ovarian cyst, unspecified side Coding Level of Care Code Tele Est Pt Level 3 (82636) Diagnoses Hydrosalpinx N70.11 Ovarian cyst N83.209
--- OUTSIDE RECORDS SUMMARY | 2024-11-18 11:02 | XMS_ITS | Clinical Summary ---
Author Organization [employer] Address [address] [place] [address] Care Team Providers Care Mailer Apprentice Name Role Phone Lorena Rendon MD Primary Care Pro vider Allergies No known active allergies Medications ascorbic acid (Vitamin C) 250 MG chewable tablet Chew 1 tablet (250 mg) Once per day. 90 tablet 4 Active ferrous sulfate 325 (65 Fe) MG EC tablet TAKE 1 TABLET (325 MG) BY MOUTH WITH BREAKFAST 90 tablet 5 Active Polyvinyl Alcohol-Povidone 5-6 MG/ML solution Administer 1 drop into affected eye(s) 3 times daily. 15 mL 5 Active Tirzepatide-Weight Management (Zepbound) 7.5 MG/0.5ML solution auto-injector Inject 0.5 mL (7.5 mg) under the skin 1 (one) time per week. 2 mL 5 Active fexofenadine (Dena) 180 MG tabletIndications: Seasonal allergies Take 1 tablet (180 mg) by mouth if needed each day (Allergies). 30 tablet 1 5 025 Active diphenhydrAMINE (BENADryl) 25 MG tabletIndications: Seasonal allergies Take 2 tablets (50 mg) by mouth if needed at bedtime for itching or allergies. 30 tablet 5 Active cetirizine (ZyrTEC) 10 MG tabletIndications: Acute rhinosinusitis TAKE 1 TABLET (10 MG) BY MOUTH ONCE PER DAY. 90 tablet 1 5 Active Active Problems Problem Noted Date Diagnosed Date Nephrolithiasis 10/17/2023 Health care maintenance 12/17/2022 Obesity 12/17/2022 Anemia 09/12/2022 Assessment & Plan (09/12/2022 10:16 PM EDT): From previous labs noted a history of anemia. Hb in 11.8 for patient with history of heavy menstrual periods. - Pt currently taking Fe daily. - Referred to [facility]. - Pt will return to clinic to follow up with PCP in 4-6 weeks to follow labs done today. Resolved Problems Problem Noted Date Diagnosed Date Resolved Date Amenorrhea 09/12/2022 12/17/2022 Overview (10/25/2022): Established with [facility] Initial labs all WNL Upcoming Assessment & Plan (09/12/2022 10:11 PM EDT): Amenorrhea for 3 months, negative test at home and repeated in urine here today. Denies symptoms concerning for thyroid disease and hyperprolactinemia. - Will check labs. - Referred to automobile club membership sales agent today. Cyst of right ovary 09/12/2022 12/18/19 Assessment & Plan (09/12/2022 10:13 PM EDT): [place] phone): enlargement of rt ovary, secondary to 5.2 cm, complex cyst, possibly hemmorhagic. - Referred today to [facility] for further evaluation and imaging. - Papsmear 2019: normal with negative HPV. Encounters Date Type Department Care Team Description 10/25/2024 Telephone [facility] [address] [place] [address] Lorena Rendon MD Prior Authorization 10/21/2024 Patient Outreach [facility] [address] [place] [phone] Lorena Rendon MD Care Coordination ([facility] outreach for SDOH PT-1 and food needs-referral completed /) 10/21/2024 Patient Outreach [facility] [address] [place], [place] [phone] Lorena Rendon MD Pre-visit Planning (SDOH positive, Tobacco screening negative. ) 10/18/2024 Refill [facility] [address] [place] [address] Sagrario Real MD Acute rhinosinusitis 10/12/2024 Telephone [facility] [address] [place] [address] Lorena Rendon MD Prior Authorization (/) 10/04/2024 10:00 AM EDT Office Visit [facility] [address] [place] [address] Subhash Brandon MD Seasonal allergies (Primary Dx) 10/04/2024 Travel 09/28/2024 Telephone [facility] [address] [place] [address] Lorena Rendon MD Med Refill 09/28/2024 Orders Only [facility] [address] [place] [address] Lorena Rendon MD 09/27/2024 Refill [facility] [address] [place] [address] Lorena Rendon MD 09/08/2024 Orders Only [facility] External Provider, [facility] 08/26/2024 10:00 AM EDT Office Visit [facility] [address] [place] [address] Hyperopia of both eyes (Primary Dx) from Last 3 Months Immunizations Immunization Administration Dates Next Due Moderna Covid-19 Vaccine [...] housing situation today? I have robert beyer 10/21/[address] you li ve. Do you have problems with any of the following? None of the above 10/21/2024 Food Insecurity Answer Date Recorded Within the past 12 months, y ou worried that your food would run out before you got money to buy more: Often true 10/21/2024 Within the past 12 months,th e food you bought just didn't last and you didn't have enough money to get more: Often true 09/2024 Transportation Answer Date Recorded In the past 12 months, has l ack of transportation kept you from medical appts, meetings, work or from getting things needed for daily living? No 10/21/2024 Utilities Answer Date Recorded In the past 12 months, has t he electric, gas, oil or water company threatened to shut off services in your home? No 10/21/2024 Depression Answer Date Recorded Patient Health Questionnaire-2 Score 0 10/16/2023 Internet Access Answer Date Recorded Internet Access Q1 Yes 10/21/2024 Internet Access Q2 Not on file 10/21/2024 Comments No Sex and Gender Information Value Date Recorded Sex Assigned at Female 03/18/2022 10:40 AM EDT Legal Sex Female 10:40 AM EDT Gender Identity Female 03/18/2022 10:40 AM EDT Sexual Orientation Straight 12/17/2022 10 :43 AM EDT Last Filed Vital Signs Vital Sign Reading Time Taken Comments Blood Pressure 125/77 10/04/2024 9:30 AM EDT Pulse 88 10/04/2024 9:30 AM EDT Temperature 36.7 C (98 F) 10/04/2024 9:30 AM EDT Respiratory Rate 18 10/04/2024 9:30 AM EDT Oxygen Saturation 99% 10/04/2024 9:30 AM EDT Inhaled Oxygen Concentration - - Weight 72.8 kg (160 lb 9.6 oz) 10/04/2024 9:30 A M EDT Height 157.5 cm (5' 2 ) 10/04/2024 9:30 AM EDT Body Mass Index 29.37 10/04/2024 9:30 AM EDT Plan of Treatment Upcoming Encounters Date Type Department Care Team ([facility] st Contact Info) Description 01/10/2025 2:00 PM EDT Office Visit [facility] [address] [place], [place] [phone] Lorena Rendon MD [address] [place], [place] [phone] Health Maintenance Due Date Last Done Comments Disability Screening 1995 Family Planning (PISQ) 2008 Hepatitis B Vaccines (1 of 3 - 19+ 3-dose series) 2012 COVID-19 Vaccine ( season) 2024 12/21/2020, 11/23/2020 Depression Screening 10/15/2024 10/16/2023, 10/16/19 Influenza Vaccine (Season Ended) 2025 Alcohol/Substance Use Screening 04/20/2025 04/20/2024 Tobacco Screening 10/04/2025 10/04/2024 Cervical Cancer Screening 10/15/2025 HPV/Cotest 10/15/2025 Pap Smear 10/15/2025 10/15/2022 SDOH Screening 10/21/2025 10/21/2024 Lipid Panel 01/12/2029 01/13/2024, 08/08/2022, 10/17/2021 DTaP/Tdap/Td Vaccines (2 - Td or Tdap) 06/26/2032 06/26/2022 Zoster Vaccines (1 of 2) 2043 RSV Patients and Patients Aged 60 years or older (1 - 1-dose 75+ series) 2068 HIV Screening Completed 01/13/2024, 2 11/2022, 01/14/2022, Additional history exists Hepatitis C Screening [...] patient's age to complete this topic Meningococcal B Vaccine Aged Out No l onger eligible based on patient's age to complete this topic Meningococcal Vaccine Aged Out No jean mason eligible based on patient's age to complete this topic Pneumococcal Vaccine: Pediatrics (0 to 5 Years) and At-Risk Patients (6 to 49) Years Aged Out No longer eligible based on patient's age to complete this topic RSV under 20 months Aged Out No longe r eligible based on patient's age to complete this topic Rotavirus Vaccines Aged Out No longer eligible based on patient's age to complete this topic Procedures Procedure Name Priority Date/Time Associated Diagnosis Comments MR PELVIS W AND WO CONTRAST Routine 09/23/2024 10:39 AM EDT US PELVIS TRANSVAGINAL Routine 09/10/2024 12:22 PM EDT HEPATITIS C AB W/REFL TO HCV RNA, QN, PCR Routine 01/13/2024 8:52 AM EDT Annual physical exam HIV 1/2 ANTIGEN/ANTIBODY, FOURTH GENERATION W/RFL Routine 01/13/2024 8:52 AM EDT Annual physical exam LIPID PANEL, STANDARD Routine 01/13/2024 8:49 AM EDT Annual physical exam PAP SMEAR Routine 10/15/2022 3:58 PM EDT from Last 3 Months or Most Recently Relevant to Health Maintenance Results * MR Pelvis w/ and w/o Contrast (09/23/2024 10:39 AM EDT) Anatomical Region Laterality Modality Body, Pelvis Magnetic Resonan ce 09/23/2024 10:3 9 AM EDT Narrative 09/23/2024 12:52 PM EDT [address] [address] Magnetic Resonance Report Signed Patient: Sagrario Corona MR#: [id number] : 1995 Acct:[id number] Age/Sex: 29 / F ADM Date: 09/23/24 Loc: HO.MRI Attending Dr: Chris Bedoya MD Ordering Physician: Chris Bedoya MD Date of Service: 09/23/24 Procedure(s): MR pelvis wo/w con Accession Number(s): [id number] cc: Lorena Rendon MD; Chris Bedoya MD EXAMINATION: MR PELVIS WITHOUT THEN WITH IV CONTRAST HISTORY: N70.11 - Chronic salpingitis. TECHNIQUE: Axial T1, axial fat suppressed T1, axial oblique fat suppressed T2, and sagittal, axial, and coronal T2-weighted MR images of the pelvis were obtained. Subsequently fat-suppressed axial and sagittal T1-weighted images were obtained after the intravenous injection of 7.5 mm Gadavist. COMPARISON: Correlation is made with a pelvic ultrasound dated 09/08/[address] of the abdomen and pelvis with contrast dated 04/07/2023. FINDINGS: There are nabothian cysts in the cervix. No uterine fibroids are identified. The junctional zone is not thickened. The endometrium is unremarkable in appearance. There is a cyst in the vagina. The right ovary is unremarkable in appearance, demonstrating multiple small follicles. There is a tubular structure in the right adnexa adjacent to the right ovary, measuring approximately 2.3 cm in diameter and approximately 5 cm in length, compatible with a hydrosalpinx. No internal soft tissue is identified. There is no abnormal contrast enhancement. There is a 3.6 x 3.4 x 3.9 cm unilocular cyst in the left adnexa. There is trace fluid in the bilateral adnexal regions. There is no pelvic adenopathy. The visualized bones demonstrate normal marrow signal intensity. MR/MR pelvis wo/w con IMPRESSION: 1. 5.0 cm tubular structure in the right adnexa adjacent to the ovary, compatible with a hydrosalpinx. 2. 3.6 x 3.4 x 3.9 cm left ovarian cyst. Follow-up is suggested to document resolution. Electronically signed by: Lang Pina MD 09/23/2024 12:49 PM EDT RP Dictated By: Lang Pina MD Signed By: <Electronically signed by Lang Pina MD in OV> 09/23/24 1249 DD/ 1039 TD/TT: 09/23/24 1104 Plant Taxonomist: Procedure Note Donotuseinterpreter, Image - 09/23/2024 [place] [address] Magnetic Resonance Report Signed Patient: Clovis Corona#: [id number] : 1995Acct:[id number] Age/Sex: Date: 09/23/24 Loc: HO.MRI Attending Dr: Chris Bedoya MD Ordering Physician: Chris Bedoya MD Date of Service: 09/23/24 Procedure(s): MR pelvis wo/w con Accession Number(s): [id number] cc: Lorena Rendon MD; Chris Bedoya MD EXAMINATION: MR PELVIS WITHOUT THEN WITH IV CONTRAST HISTORY: N70.11 - Chronic salpingitis. TECHNIQUE: Axial T1, axial fat suppressed T1, axial oblique fat suppressed T2, and sagittal, axial, and coronal T2-weighted MR images of the pelvis were obtained. Subsequently fat-suppressed axial and sagittal T1-weighted images were obtained after the intravenous injection of 7.5 mm Gadavist. COMPARISON: Correlation is made with a pelvic ultrasound dated 09/08/[address] of the abdomen and pelvis with contrast dated 04/07/2023. FINDINGS: There are nabothian cysts in the cervix. No uterine fibroids are identified. The junctional zone is not thickened. The endometrium is unremarkable in appearance. There is a cyst in the vagina. The right ovary is unremarkable in appearance, demonstrating multiple small follicles. There is a tubular structure in the right adnexa adjacent to the right ovary, measuring approximately 2.3 cm in diameter and approximately 5 cm in length, compatible with a hydrosalpinx. No internal soft tissue is identified. There is no abnormal contrast enhancement. There is a 3.6 x 3.4 x 3.9 cm unilocular cyst in the left adnexa. There is trace fluid in the bilateral adnexal regions. There is no pelvic adenopathy. The visualized bones demonstrate normal marrow signal intensity. MR/MR pelvis wo/w con IMPRESSION: 1. 5.0 cm tubular structure in the right adnexa adjacent to the ovary, compatible with a hydrosalpinx. 2. 3.6 x 3.4 x 3.9 cm left ovarian cyst. Follow-up is suggested to document resolution. Electronically signed by: Lang Pina MD 09/23/2024 12:49 PM EDT Dictated By: Lang Pina MD Signed By: <Electronically signed by Lang Pina MD in OV> 09/23/24 1249 DD/ 1039 TD/TT: 09/23/24 1104 Plant Taxonomist: us [facility] External Provider IMG MRI PROCEDURES Edited Result - Final * US Pelvis Transvaginal (09/10/2024 12:22 PM EDT) Anatomical Region Laterality Modality Pelvis Ultrasound 09/10/2024 12:2 2 PM EDT Narrative 09/10/2024 12:24 PM EDT [place] [address] Ultrasound Report Signed Patient: Sagrario Corona MR#: [id number] : 1995 Acct:[id number] Age/Sex: 29 / F ADM Date: 09/08/24 Loc: HO.US Attending Dr: Chris Bedoya MD Ordering Physician: Chris Bedoya MD Date of Service: 09/08/24 Procedure(s): US pelvic and transvaginal Accession Number(s): [id number] cc: Lorena Rendon MD; Chris Bedoya MD [...] Josue MD Signed By: <Electronically signed by aJvier Josue MD in OV> 09/10/24 1223 DD/ 1222 TD/TT: 09/10/24 1222 Plant Taxonomist: Procedure Note Donotuseinterpreter, Image - 09/10/2024 [place] [address] Ultrasound Report Signed Patient: Clovis Corona#: [id number] : 1995Acct:[id number] Age/Sex: 29 FADM Date: 09/08/24 Loc: HO.US Attending Dr: Chris Bedoya MD Ordering Physician: Chris Bedoya MD Date of Service: 09/08/24 Procedure(s): US pelvic and transvaginal Accession Number(s): [id number] cc: Lorena Rendon MD; Chris Bedoya MD [...] 09/10/24 1223 DD/ 1222 TD/TT: 09/10/24 1222 Plant Taxonomist: [facility] External Provider IMG US PROCEDURES Edited Result - Final * Hepatitis C Antibody with Reflex to HCV, RNA, Quantitative, Real-Time PCR (01/13/2024 8:52 AM EDT) Hepatitis C Antibody Nonreactive Nonreactive [facility] Comment:Antibodies to HCV no t detected; does not exclude early acuteHCV infection. Blood Venous blood specimen / Unknown 01/13/2024 8:52 AM EDT 01/13/2024 11:22 AM EDT Lorena Tijerina MD LAB BLOOD ORDERAB LES Final Result [facility] [address] [place] [phone] * HIV-1/2 Antigen and Antibodies, Fourth Generation, with Reflexes (01/13/2024 8:52 AM EDT) HIV AB/AG Nonreactive Nonreactive [facility] Comment:HIV-1 p24 Ag and/or HIV-1/HIV-2 Ab not detected.A test result that is nonreactive does not exclude thepossibility of exposure to or infection with HIV-1 and/orHIV-2. Nonreactive results in this assay for individualswith prior exposure to HIV-1 and/or HIV-2 may be due toantigen and antibody levels that are below the limit ofdetection of this assay.The [employer] HIV Ag/Ab Combo assay result andsupplemental assay results should be interpreted inconjunction with the patient's clinical presentation,history and other laboratory results. If the results areinconsistent with clinical evidence, additional testing issuggested to confirm the result. Blood Venous blood specimen / Unknown 01/13/2024 8:52 AM EDT 01/13/2024 11:22 AM EDT us Lorena Tijerina MD LAB BLOOD ORDERAB LES Final Result [facility] [address] [place] [phone] * Lipid Panel, Standard (01/13/2024 8:49 AM EDT) Triglycerides 146 <150 mg/dL [facility] Comment:Desirable Triglyceri de: less than 150 mg/dLBorderline High Triglyceride 150-199 mg/dLHigh Triglyceride: 200-499 mg/dLVery High Triglyceride: greater than or equal to 5OO mg/dL Cholesterol 167 <200 mg/dL [facility] Comment:Desirable Cholestero l: less than 200 mg/dLBorderline High Cholesterol: 200-239 mg/dLHigh Cholesterol: greater than 239 mg/dL LDL Cholesterol Calculated 96 <100 mg/dL [facility] Comment:Desirable LDL: less than 100 mg/dLNear Optimal/Above Optimal LDL: 110- 129 mg/dLBorderline High LDL: 130-159 mg/dLHigh LDL: 160-189 mg/dLVery High LDL: greater than or equal to 190 mg/dL HDL Cholesterol 42 >40 mg/dL [facility] Comment:Desirable HDL: great er than 40 mg/dL Note: This HDL assay may give artificially low results in patients with liver disease. Blood Venous blood specimen / Unknown 01/13/2024 8:49 AM EDT 01/13/2024 11:22 AM EDT us Lorena Tijerina MD LAB BLOOD ORDERAB LES Final Result [facility] [address] [place] [phone] * Pap Smear (10/15/2022 3:58 PM EDT) 10/15/2022 3:58 PM EDT 10/16/2022 12:15 PM EDT Narrative [facility] - 11/04/2022 1:15 PM EDT ----- ------- Name: Sagrario Corona Age/Sex: 27/F : 1995 Unit#: [id number] Attend Dr: Chris Bedoya MD Re10/15/22 Status: DEP REF Location: HO.LNP Disch: ----- ------- SPEC : [id number] RECD: 10/16/22-1214 STATUS: CRISTÓBAL CARCAMO NUM: [id number] MARQUIS: 10/15/22-1558 [facility] DR: Chris Bedoya MD ENTERED: 10/16/22-1239 SP TYPE: Pap Smr OTHR DR: ORDERED: Pap Smear Interpretation Satisfactory for evaluation. Negative for intraepithelial lesion or malignancy. Clinical Information LMP: 10/10/22 Previous PAP test: Unknown Material Received ThinPrep-Cervical ----- ------- Signed (signature on file) Brit A Darron 11/04/22 1315 ----- ------- END OF REPORT [facility] External Provider LAB SILVIANO OSEGUERA ORDERABLES Final Result [facility] [address] [place] [phone] from Last 3 Months or Most Recently Relevant to Health Maintenance Insurance [facility] C3 Care Teams Mailer Apprentice Relationship Specialty Start Date End Date Lorena Rendon MD [address] [place] [phone] PCP - General Internal Medicine 10/25/22
== END 2024-11-18 10:57 | disposition home or self-care (01) ==
LOC: HO.HWS 10:20
PROVIDERS: PCP Student in an Organized Health Care Education/Training Program; Visit Provider Obstetrics & Gynecology
DX: N70.11 Chronic salpingitis (principal); N83.209 Unspecified ovarian cyst, unspecified side
CPT/HCPCS: 99213

== ENCOUNTER 2025-01-14 12:46 | Outpatient (REF) | payer OTHER, SELFPAY ==
--- OUTSIDE RECORDS SUMMARY | 2025-01-10 14:00 | XMS_ITS | Encounter Summary ---
Author Organization [employer] Address [address] [facility] 7t [place] [address] Care Team Providers Care Stamps Or Coins Salesperson Name Role Phone Lorena Rendon MD Primary Care Pro vider Reason for Referral * Imaging (Routine) - Authorized Specialty Diagnoses / Procedures Referred By Gopi ballard Referred To Contact Radiology Diagnoses Nephrolithiasis Procedures US Retroperitoneal Complete Lorena Rednon MD [address] [place] [address] Phone: tel: fax: [facility] [address] [place], [place] Phone: tel: fax: Referral ID Status Reason Start Date Expiration Date V isits Requested Visits Authorized [id number] Authorized 01/10/2025 01/10/2026 1 1 * Medications - Closed Specialty Diagnoses / Procedures Referred By Gopi balalrd Referred To Contact Diagnoses Obesity due to excess calories without serious comorbidity, unspecified class Lorena Rendon MD [address] [place] [address] Phone: tel: fax: Referral ID Status Reason Start Date Expiration Date Visits Re quested Visits Authorized [id number] Closed 1 1 Reason for Visit * Reason Comments Annual Exam Encounter Details Date Type Department Care Team ([facility] st Contact Info) Description 01/10/2025 2:00 PM EDT Office Visit [facility] [address] [place] [address] Lorena Rendon MD [address] [place], [place] [phone] Obesity due to excess calories without serious comorbidity, unspecified class (Primary Dx); Dietary counseling; Exercise counseling; Nephrolithiasis; Annual physical exam; Overweight (BMI 25.0-29.9); Health care maintenance; Iron deficiency anemia due to chronic blood loss Social History Tobacco Use Types Packs/Day Years Used Date Smoking Tobacco: Never Passive Smoke Exposure: Never Smokeless Tobacco: Never Tobacco Cessation:Counseling Given: Not Answered Alcohol Use Standard Drinks/Week Comments Yes 0 (1 standard drink = 0.6 oz pur e alcohol) social Depression Answer Date Recorded Patient Health Questionnaire-9 Score 0 01/10/2025 Patient Health Questionnaire-9 Score 0 01/10/2025 Last PHQ-9: Questionnaire Data Not on file 0 01/10/2025 Housing Stability Answer Date Recorded What is [...] Date Recorded Patient Health Questionnaire-2 Score 0 01/10/2025 Internet Access Answer Date Recorded Internet Access Q1 Yes 10/21/2024 Internet Access Q2 Not on file 10/21/2024 Comments No Sex and Gender Information Value Date Recorded Sex Assigned at Female 03/18/2022 10:40 AM EDT Legal Sex Female 10:40 AM EDT Gender Identity Female 03/18/2022 10:40 AM EDT Sexual Orientation Straight 12/17/2022 10 :43 AM EDT documented as of this encounter Last Filed Vital Signs Vital Sign Reading Time Taken Comments Blood Pressure 108/68 01/10/2025 1:53 PM EDT Pulse 60 01/10/2025 1:53 PM EDT Temperature 36.7 C (98.1 F) 01/10/2025 1:53 PM EDT Respiratory Rate 14 01/10/2025 1:53 PM EDT Oxygen Saturation 100% 01/10/2025 1:53 PM EDT Inhaled Oxygen Concentration - - Weight 68.4 kg (150 lb 12.8 oz) 01/10/2025 1:53 PM EDT Height 157.5 cm (5' 2 ) 01/10/2025 1:53 PM EDT Body Mass Index 27.58 01/10/2025 1:53 PM EDT documented in this encounter Functional Status * Over the past 2 weeks, how often have you been bothered by any of the following problems? Question Answer Date of Assessment Author Patient Health Questionnaire-2 Score 0 12/18 2:27 PM EDT Marquita Hannah MA * Little interest or pleasure in doing things Answer Date of Assessment Author Not at all 01/10/2025 2:27 PM EDT Marquita Hannah MA * Feeling down, depressed, or hopeless Answer Date of Assessment Author Not at all 01/10/2025 2:27 PM EDT Marquita Hannah MA * Trouble falling or staying asleep, or sleeping too much Answer Date of Assessment Author Not at all 01/10/2025 2:27 PM EDT Marquita Hannah MA * Feeling tired or having little energy Answer Date of Assessment Author Not at all 01/10/2025 2:27 PM EDT Marquita Hannah MA * Poor appetite or overeating Answer Date of Assessment Author Not at all 01/10/2025 2:27 PM EDT Marquita Hannah MA * Feeling bad about yourself - or that you are a failure or have let yourself or your family down Answer Date of Assessment Author Not at all 01/10/2025 2:27 PM EDT Marquita Hannah MA * Trouble concentrating on things, such as reading the newspaper or watching television Answer Date of Assessment Author Not at all 01/10/2025 2:27 PM EDT Marquita Hannah MA * Moving or speaking so slowly that other people could have noticed? Or the opposite - being so fidgety or restless that you have been moving around a lot more than usual. Answer Date of Assessment Author Not at all 01/10/2025 2:27 PM EDT Marquita Hannah MA * Thoughts that you would be better off or hurting yourself in some way Answer Date of Assessment Author Not at all 01/10/2025 2:27 PM EDT Marquita Hannah MA * Patient Health Questionnaire-9 Score Answer Date of Assessment Author 0 01/10/2025 2:27 PM EDT Marquita Hannah MA * Over the last 2 weeks, how often have you been bothered by any of the following problems? Question Answer Date of Assessment Author Feeling nervous, anxious, or on edge 0 12/18 2:26 PM EDT Marquita Hannah MA Not being able to stop or co ntrol worrying 0 01/10/2025 2:26 PM EDT Marquita Hannah M A Worrying too much about diff erent things 1 01/10/2025 2:26 PM EDT Marquita Hannah M A Trouble relaxing 0 01/10/2025 2:26 PM EDT Marquita Youngblood MA Being so restless that it is hard to sit still 0 01/10/2025 2:26 PM EDT Marquita Hannah M A Becoming easily annoyed or irritable 0 12/18 2:26 PM EDT Marquita Hannah MA Feeling afraid as if somethi ng awful might happen 0 01/10/2025 2:26 PM EDT Marquita Hannah M A HERNESTO-7 Total Score 1 01/10/2025 2:26 PM EDT Marquita Hannah MA documented as of this encounter Progress Notes * Lorena Tijerina MD - 01/10/2025 2:00 PM EDT Subjective Patient ID: Sagrario Mchugh is a 29 y.o. 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 ----- -LMP: 01/05/2025 ------- Assessment and plan: Health care maintenance: -Annual exam 12/2024 -T-spot 04/2024 Neg -Contraception: s/p tubal ligation per pt ,on oral MedroxyPG pxed by DIRECTOR EQUIPMENT for irregular periods -from records pap smear w DIRECTOR EQUIPMENT 10/15/2022 : neg ,seems HPV test not done ?--- - advised to check w herGYN about next pap smear-states has f up apt this week -vaccines: s/p Covid 19 x2 ,s/P Tdap 2022 ,hep B immune . HPV vaccine never - refuse vaccine. -advised for COVID 19 and Flu vaccine in 01/2025 ---- Pt taking OTC Vit B12 -will check levels Obesity-now Overweight BMI 27 -lost 41 pounds in last 17 months since using GLP1 -pt on GLP1 -pt reports to be s/p tubal ligation ,explained to pt risk of med use in ,advised as well condom use in case ligation failed as contraceptive method but seems unlikely Feeling much better since having weight loss, w improvement of menorrhagia ,feeling less fatigue, improved physical status. - Advised pt to improve diet and exercise,discussed healthy life style -was off for the past 2 mo of Zepbound because of insuance ,later approved ,pt did not informed andpt resumed her 10 mg dose used 2 doses already having DAWKINS and dizziness --spoke w pharmacist today and was advised to resume half Zepbound dose . Prescribed today 5 mg and if tolerating well will continue to increase monthly -saw Material Assistant in 2023-not interested in following Anemia 2/2 ferropenic anemia -2/2 Menorrhagia -04/2024 hb 11.4, iron panel wnl -12/2023 Hb 11.3 MCV wnl,iron and ferritin wnl <------Hb 12<--11.4,<---11.1 denies ongoing menorrhagia -US pelvic and transvaginal 08/2024: Tubular avascular structure right adnexa probable hydrosalpinx with minimal debris. MRI would be confirmatory contrast would be indicated.Uterus within normal limits. Normal sonographic appearance of the ovaries -MR pelvis wo/w con 09/2024: 5.0 cm tubular structure in the right adnexa adjacent to the ovary, compatible with a hydrosalpinx. There is a 3.6 x 3.4 x 3.9 cm left ovarian cyst. Follow-up is suggestedto document resolution. -saw DIRECTOR EQUIPMENT 11/2024 -following for right hydrosalpinx, and ovarian cyst-referred by DIRECTOR EQUIPMENT for f up pelvic/TV US -Continue iron pt taking daily not tolerated higher dose -but advised to improve iron in diet -Advised to f w DIRECTOR EQUIPMENT if again heavy periods -monitor CBC,iron panel ordered today Nephrolithiasis -Abd US 10/01/2023: 0.6 x 0.7 x 0.8 cm Non obstructing right renal calculi. -asymptomatic ,to inform here if symptomatic ,advised hydration -will repeat abd US to monitor size ,if growing and equal or > 1 cm will refer to urologist Review of Systems Constitutional: Negative. Negative for chills, fatigue and fever. HENT: Negative. Eyes: Negative. Respiratory: Negative. Cardiovascular: Negative. Gastrointestinal: Negative. Genitourinary: Negative. Musculoskeletal: Negative. Neurological: Negative. Hematological: Negative. Psychiatric/Behavioral: Negative. Objective BP 108/68 (BP Location: Right arm, Patient Position: Sitting, BP Cuff Size: Adult) Pulse 60 Temp 98.1 ??F (36.7 ??C) (Oral) Resp 14 Ht 5' 2 (1.575 m) Wt 150 lb 12.8 oz (68.4 kg) LMP 01/05/2025 SpO2 100% BMI 27.58 kg/m?? Physical Exam Vitals reviewed. Constitutional: Appearance: Normal appearance. HENT: Head: Normocephalic and atraumatic. Right Ear: Tympanic membrane and ear canal normal. Left Ear: Tympanic membrane and ear canal normal. Mouth/Throat: Mouth: Mucous membranes are moist. Pharynx: Oropharynx is clear. Eyes: Extraocular Movements: Extraocular movements intact. Pupils: Pupils are equal, round, and reactive to light. Cardiovascular: Rate and Rhythm: Normal rate and regular rhythm. Heart sounds: Normal heart sounds. No murmur heard. Pulmonary: Effort: Pulmonary effort is normal. Breath sounds: Normal breath sounds. Abdominal: General: Abdomen is flat. Bowel sounds are normal. Palpations: Abdomen is soft. Musculoskeletal: General: Normal range of motion. Cervical back: Normal range of motion and neck supple. Skin: General: Skin is warm. Neurological: General: No focal deficit present. Mental Status: She is alert and oriented to person, place, and time. Mental status is at baseline. Psychiatric: Mood and Affect: Mood normal. Behavior: Behavior normal. Assessment/Plan Problem List Items Addressed This Visit Anemia Relevant Medications cyanocobalamin (Vitamin B-12) 1000 MCG tablet Health care maintenance RESOLVED: Obesity - Primary Relevant Medications Tirzepatide-Weight Management (Zepbound) 5 MG/0.5ML solution auto-injector medroxyPROGESTERone (Provera) 10 MG tablet Nephrolithiasis Relevant Orders US Retroperitoneal Complete Overweight (BMI 25.0-29.9) Relevant Medications Tirzepatide-Weight Management (Zepbound) 5 MG/0.5ML solution auto-injector medroxyPROGESTERone (Provera) 10 MG tablet Other Visit Diagnoses Dietary counseling Relevant Medications Tirzepatide-Weight Management (Zepbound) 5 MG/0.5ML solution auto-injector medroxyPROGESTERone (Provera) 10 MG tablet Exercise counseling Relevant Medications Tirzepatide-Weight Management (Zepbound) 5 MG/0.5ML solution auto-injector medroxyPROGESTERone (Provera) 10 MG tablet Annual physical exam Relevant Orders Iron And Total Iron Binding Capacity Ferritin CBC Chlamydia/Trichomonas/Neisseria gonorrhoeae, PCR, Urine Comprehensive Metabolic Panel Hemoglobin A1c Hepatitis B surface antigen, EIA Hepatitis C Antibody with Reflex to HCV, RNA, Quantitative, Real-Time PCR HIV-1/2 Antigen and Antibodies, Fourth Generation, with Reflexes Lipid Panel, Standard Syphilis Screen TSH with Reflex to Free T4 Vitamin B12 (Cobalamin) and Folate Panel, Serum Vitamin D, 25-Hydroxy, Total, Immunoassay documented in this encounter Plan of Treatment Upcoming Encounters Date Type Department Care Team (Late st Contact Info) Description 04/07/2025 9:30 AM EST Office Visit [facility] [address] [place] [phone] Lorena Rendon MD [address] [place], [place] [phone] Scheduled Orders Name Type Priority Associated Diagnoses Orde r Schedule US Retroperitoneal Complete Imaging Routine Nephrolithiasis Expected: 01/10/2025, Expires: 01/10/2026 Iron And Total Iron Binding Capacity Lab Routine Annual physical exam Expected: 01/10/2025 (Approximate), Expires: 01/10/2026 Ferritin Lab Routine Annual physical exam Expected: 01/10/2025 (Approximate), Expires: 01/10/2026 CBC Lab Routine Annual physical exam Expected: 01/10/2025 (Approximate), Expires: 01/10/2026 Chlamydia/Trichomonas/Neiss eria gonorrhoeae, PCR, Urine Lab Routine Annual physical exam Ordered: 01/10/2025 Comprehensive Metabolic Panel Lab Routine Annual physical exam Expected: 01/10/2025 (Approximate), Expires: 01/10/2026 Hemoglobin A1c Lab Routine Annual physical exam Expected: 01/10/2025 (Approximate), Expires: 01/10/2026 Hepatitis B surface antigen, EIA Lab Routine Annual physical exam Expected: 01/10/2025 (Approximate), Expires: 01/10/2026 Hepatitis C Antibody with Reflex to HCV, RNA, Quantitative, Real-Time PCR Lab Routine Annual physical exam Expected: 01/10/2025 (Approximate), Expires: 01/10/2026 HIV-1/2 Antigen and Antibodies, Fourth Generation, with Reflexes Lab Routine Annual physical exam Expected: 01/10/2025 (Approximate), Expires: 01/10/2026 Lipid Panel, Standard Lab Routine Annual physical exam Expected: 01/10/2025 (Approximate), Expires: 01/10/2026 Syphilis Screen Lab Routine Annual physical exam Expected: 01/10/2025 (Approximate), Expires: 01/10/2026 TSH with Reflex to Free T4 Lab Routine Annual physical exam Expected: 01/10/2025 (Approximate), Expires: 01/10/2026 Vitamin B12 (Cobalamin) and Folate Panel, Serum Lab Routine Annual physical exam Expected: 01/10/2025 (Approximate), Expires: 01/10/2026 Vitamin D, 25-Hydroxy, Total, Immunoassay Lab Routine Annual physical exam Expected: 01/10/2025 (Approximate), Expires: 01/10/2026 documented as of this encounter Visit Diagnoses Diagnosis Obesity due to excess calories without serious comorbidity, unspecified class- Primary Dietary counseling Dietary surveillance and counseling Exercise counseling Nephrolithiasis Calculus of kidney Annual physical exam Routine general medical examination at a health care facility Overweight (BMI 25.0-29.9) Overweight Health care maintenance Iron deficiency anemia due to chronic blood loss Iron deficiency anemia secondary to blood loss (chronic) documented in this encounter Additional Health Concerns Assessment Noted Time PHQ-9 Depression Total Score: 0 01/11/20 25 2:27 PM EDT documented as of this encounter Care Teams Stamps Or Coins Salesperson Relationship Specialty Start Date End Date Lorena Rendon MD [address] [place] [phone] PCP - General Internal Medicine 10/25/22 documented as of this encounter
--- NOTE | ~2025-01-14 | US_ITS ---
EXAMINATION: US PELVIS TRANSABDOMINAL AND TRANSVAGINAL HISTORY: N83.209 - Unspecified ovarian cyst, unspecified side COMPARISON: Comparison is made with the prior examination dated 09/08/2024. TECHNIQUE: Transabdominal and endovaginal real-time 2D nicole-scale ultrasound was performed. FINDINGS: Uterus: The uterus is normal in size, measuring 8.2 x 3.7 x 4.8 cm. Myometrium has a normal echotexture. No fibroids are identified. Endometrium: The endometrial stripe measures 5 mm in thickness. Right ovary: The right ovary measures 2.0 x 2.0 x 1.7 cm. The right ovary is normal in size and echotexture. There is a 7.9 x 3.7 x 3.6 cm tubular structure in the right adnexa consistent with a hydrosalpinx as noted on prior imaging. Left ovary: The left ovary measures 2.4 x 2.9 x 2.4 cm. The left ovary is normal in size and echotexture. Pelvic fluid: none. US/US pelvic and transvaginal IMPRESSION: Right hydrosalpinx without change. Electronically signed by: Lang Pina MD 01/14/2025 01:39 PM EDT
--- OUTSIDE RECORDS SUMMARY | 2025-01-14 13:15 | XMS_ITS | Encounter Summary ---
Author Organization [employer] Address [address] [facility] 7t [place] [address] Care Team Providers Care Cable Technician Name Role Phone Lorena Rendon MD Primary Care Pro vider Reason for Visit * Reason Comments Med Change Request Encounter Details Date Type Department Care Team ([facility] Contact Info) Description 12/23/2024 Refill [facility] [address] [place] [address] Lorena Rendon MD [address] [place] [address] Social History Tobacco Use Types Packs/Day Years [...] encounter Miscellaneous Notes * Telephone Encounter - Lorena Tijerina MD - 12/23/2024 3:50 PM EDT New prescription sent documented in this encounter Plan of Treatment Upcoming Encounters Date Type Department Care Team (Late st Contact Info) Description 04/07/2025 9:30 AM EST Office Visit [facility] [address] [place] [phone] Lorena Rendon MD [address] [place] [phone] documented as of this encounter Visit Diagnoses Not on filedocumented in this encounter Additional Health Concerns Assessment Noted Time PHQ-9 Depression Total Score: 0 10/16/19 24 10:59 AM EDT documented as of this encounter Care Teams Cable Technician Relationship Specialty Start Date End Date Lorena Rendon MD [address] [place] [phone] PCP - General Internal Medicine 10/25/22 documented as of this encounter
--- OUTSIDE RECORDS SUMMARY | 2025-01-14 13:15 | XMS_ITS | Encounter Summary ---
Author Organization [employer] [facility] Address [address] [place] [phone] Care Team Providers Care Plant Security Guard Name Role Phone Lorena Rendon MD Primary Care Pro vider Reason for Visit * Reason Comments Med Refill Encounter Details Date Type Department Care Team ([facility] Contact Info) Description 02/09/2023 Refill [facility] [address] [place] [address] [phone] Lorena Rendon MD [address] [place] [address] [phone] Iron deficiency anemia, unspecified iron deficiency anemia [...] Upcoming Encounters Date Type Department Care Team ([facility] Contact Info) Description 04/07/2025 9:30 AM EST Office Visit [facility] [address] [place] [address] [phone] Lorena Rendon MD [address] [place] [address] [place] [phone] documented as of this encounter Visit Diagnoses Diagnosis Iron deficiency anemia, unspecified iron deficiency anemia type documented in this encounter Additional Health Concerns Assessment Noted Time PHQ-9 Depression Total Score: 0 12/18/19 10:33 AM EDT documented as of this encounter Care Teams Plant Security Guard Relationship Specialty Start Date End Date Lorena Rendon MD [address] [place] [phone] PCP - General Internal Medicine 10/25/22 documented as of this encounter
--- OUTSIDE RECORDS SUMMARY | 2025-01-14 13:15 | XMS_ITS | Encounter Summary ---
Author Organization [employer] Address [address] [facility] [address] 7[address] [place] [address] Care Team Providers Care Radiology Ct Technologist Name Role Phone Juanita Ji ARNAV Primary Care Provider [phone] Lorena Rendon MD Primary Care Pro vider Reason for Visit * Reason Comments Med Change Request Encounter Details Date Type Department Care Team (Late st Contact Info) Description 08/19/2022 Refill [facility] [address] [place] [address] Crow Bernal FNP Acute rhinosinusitis Social History [...] Description 04/07/2025 9:30 AM EST Office Visit [facility] [address] [place] [phone] Lorena Rendon MD [address] [place] [phone] documented as of this encounter Visit Diagnoses Diagnosis Acute rhinosinusitis documented in this encounter Care Teams Radiology Ct Technologist Relationship Specialty Start Date End Date Juanita Ji FNP [address] [place] [phone] PCP - General Family Medicine 01/15/22 10/24/22 Lorena Rendon MD [address] [place] [phone] PCP - General Internal Medicine 10/25/22 documented as of this encounter
--- OUTSIDE RECORDS SUMMARY | 2025-01-14 13:15 | XMS_ITS | Encounter Summary ---
Author Organization [employer] Address [address] [facility] 7t [place] [address] Care Team Providers Care Coal Weigher Name Role Phone Lorena Rendon MD Primary Care Pro vider Reason for Visit * Reason Comments Med Refill Encounter Details Date Type Department Care Team ([facility] st Contact Info) Description 07/22/2024 Refill [facility] [address] [place] [address] Lorena Rendon MD [address] [place] [address] Social History Tobacco Use Types Packs/Day Years [...] Description 04/07/2025 9:30 AM EST Office Visit [facility] [address] [place] [phone] Lorena Rendon MD [address] [place] [phone] documented as of this encounter Visit Diagnoses Not on filedocumented in this encounter Additional Health Concerns Assessment Noted Time PHQ-9 Depression Total Score: 0 10/16/19 24 10:59 AM EDT documented as of this encounter Care Teams Coal Weigher Relationship Specialty Start Date End Date Lorena Rendon MD [address] [place] [address] [phone] PCP - General Internal Medicine 10/25/22 documented as of this encounter
--- OUTSIDE RECORDS SUMMARY | 2025-01-14 13:15 | XMS_ITS | Encounter Summary ---
Author Organization [employer] Address [address] [facility] [address] [place] [address] Care Team Providers Care Lead Burner Supervisor Name Role Phone Lorena Rendon MD Primary Care Pro vider Encounter Details Date Type Department Care Team (Latest Contact Info) Description 01/10/2025 Travel Social History Tobacco Use Types Packs/Day [...] AM EDT documented as of this encounter Functional Status * Over the [...] Hannah MA documented as of this encounter Plan of Treatment Upcoming Encounters Date Type Department Care Team (Late st Contact Info) Description 04/07/2025 9:30 AM EST Office Visit [facility] [address] [place] [phone] Lorena Rendon MD [address] [place] [address] documented as of this encounter Visit Diagnoses Not on filedocumented in this encounter Additional Health Concerns Assessment Noted Time PHQ-9 Depression Total Score: 0 01/11/20 2:27 PM EDT documented as of this encounter Care Teams Lead Burner Supervisor Relationship Specialty Start Date End Date Lorena Rendon MD [address] [place] [phone] PCP - General Internal Medicine 10/25/22 documented as of this encounter
--- OUTSIDE RECORDS SUMMARY | 2025-01-14 13:15 | XMS_ITS | Clinical Summary ---
Author Organization [employer] Address [address] [facility] 7[address] [place] [address] Care Team Providers Care Dinkey Operator Slate Name Role Phone Lorena Rendon MD Primary Care Pro vider Allergies No known active allergies Medications ascorbic acid (Vitamin C) 250 MG chewable tablet Chew 1 tablet (250 mg) Once per day. 90 tablet 04/20/20 24 Active ferrous sulfate 325 (65 Fe) MG EC tablet TAKE 1 TABLET (325 MG) BY MOUTH WITH BREAKFAST 90 tablet 07/08/19 25 Active Tirzepatide-Weigh t Management (Zepbound) 5 MG/0.5ML solution auto-injectorIndi cations:Obesity due to excess calories without serious comorbidity, unspecified class Inject 0.5 mL (5 mg) under the skin 1 (one) time per week. Increase dose monthly 2 mL 01/11/20 25 025 Active medroxyPROGESTERo ne (Provera) 10 MG tablet PLEASE SEE ATTACHED FOR DETAILED DIRECTIONS 08/13/19 25 Active cyanocobalamin (Vitamin B-12) 1000 MCG tablet Take 1,000 mcg by mouth Once per day. Active Polyvinyl Alcohol-Povidone 5-6 MG/ML solution Administer 1 drop into affected eye(s) 3 times daily. 15 mL 07/23/19 25 025 Disconti nued(Oth er) fexofenadine (Dena) 180 MG tabletIndications :Seasonal allergies Take 1 tablet (180 mg) by mouth if needed each day (Allergies). 30 tablet 1 10/05/19 25 01/10/ 025 Disconti nued(Oth er) diphenhydrAMINE (BENADryl) 25 MG tabletIndications :Seasonal allergies Take 2 tablets (50 mg) by mouth if needed at bedtime for itching or allergies. 30 tablet 10/05/19 25 025 Disconti nued(Oth er) cetirizine (ZyrTEC) 10 MG tabletIndications :Acute rhinosinusitis TAKE 1 TABLET (10 MG) BY MOUTH ONCE PER DAY. 90 tablet 1 10/20/19 25 025 Disconti nued(Oth er) Tirzepatide-Weigh t Management (Zepbound) 10 MG/0.5ML solution auto-injector Inject 0.38 mL (7.6 mg) as directed 1 (one) time per week. INJECT ONE PEN (=10 MG) SUBCUTANEOUSLY ONCE A WEEK 2 mL 11/24/19 25 025 Disconti nued(Oth er) Tirzepatide-Weigh t Management (Zepbound) 10 MG/0.5ML solution auto-injectorIndi cations:Obesity due to excess calories without serious comorbidity, unspecified class Inject 0.5 mL (10 mg) under the skin 1 (one) time per week. Increase dose monthly 2 mL 12/24/19 025 Disconti nued(Oth er) Active Problems Problem Noted Date Diagnosed Date Overweight (BMI 25.0-29.9) 01/10/2025 Nephrolithiasis 10/17/2023 Health care maintenance 12/17/2022 Anemia 09/12/2022 Assessment & Plan (09/12/2022 10:16 PM EDT): From previous labs noted a history of anemia. Hb in 11.8 for patient with history of heavy menstrual periods. - Pt currently taking Fe daily. - Referred to WHARF ATTENDANT. - Pt will return to clinic to follow up with PCP in 4-6 weeks to follow labs done today. Resolved Problems Problem Noted Date Diagnosed Date Resolved Date Obesity 12/17/2022 01/10/2025 Amenorrhea 09/12/2022 12/17/2022 Overview (10/25/2022): Established with [facility] WHARF ATTENDANT Initial labs all WNL Upcoming Assessment & Plan (09/12/2022 10:11 PM EDT): Amenorrhea for 3 months, negative test at home and repeated in urine here today. Denies symptoms concerning for thyroid disease and hyperprolactinemia. - Will check labs. - Referred to water filterer helper today. Cyst of right ovary 09/12/2022 12/18/19 Assessment & Plan (09/12/2022 10:13 PM EDT): [place] on her phone): enlargement of rt ovary, secondary to 5.2 cm, complex cyst, possibly hemmorhagic. - Referred today to WHARF ATTENDANT for further evaluation and imaging. - Papsmear 2019: normal with negative HPV. Encounters Date Type Department Care Team Description 01/10/2025 2:00 PM EDT Office Visit [address] [phone] Lorena Rendon MD Obesity due to excess calories without serious comorbidity, unspecified class (Primary Dx); Dietary counseling; Exercise counseling; Nephrolithiasis; Annual physical exam; Overweight (BMI 25.0-29.9); Health care maintenance; Iron deficiency anemia due to chronic blood loss 01/10/2025 Travel 01/07/[address] [address] Lorena Rendon MD CHART PREP 01/03/2025 Patient Outreach [facility] [address] [place], [place] [phone] Lorena Rendon MD Pre-visit Planning (SDOH was already completed) 12/23/2024 Orders Only [address] [address] Lorena Rendon MD Obesity due to excess calories without serious comorbidity, unspecified class (Primary Dx) 12/23/[address] [address] Lorena Rendon MD 12/23/[address] [address] Lorena Rendon MD Med Refill 11/24/2024 Telephone [facility] [address] [place] [address] Lorena Rendon MD Prior Auth Prescription 11/23/2024 Refill [facility] [address] [place] [address] Lorena Rendon MD 10/25/2024 Telephone [facility] [address] [place] [address] Lorena Rendon MD Prior Authorization 10/21/2024 Patient Outreach [facility] [address] [place] [address] Lorena Rendon MD Care Coordination ([facility] outreach for SDOH PT-1 and food needs-referral completed /) 10/21/2024 Patient Outreach [facility] [address] [place] [address] Lorena Rendon MD Pre-visit Planning (SDOH positive, Tobacco screening negative. ) 10/18/2024 Refill [facility] [address] [place] [address] Sagrario Real MD Acute rhinosinusitis from Last 3 Months Immunizations Immunization Administration [...] Mass Index 27.58 01/10/2025 1:53 PM EDT Plan of Treatment Upcoming Encounters Date Type Department Care Team (Late st Contact Info) Description 04/07/2025 9:30 AM EST Office Visit [facility] [address] [place] [address] Lorena Rendon MD [address] [place], [place] [phone] Health Maintenance Due Date Last Done Comments Family Planning (PISQ) 2008 HPV Vaccines (1 - 3-dose series) 2008 Hepatitis B Vaccines (1 of 3 - 19+ 3-dose series) 2012 COVID-19 Vaccine (3 - 2023- season) 2024 12/21/2020, 11/23/2020 Influenza Vaccine (#1) 2025 Alcohol/Substance Use Screening 04/20/2025 04/20/2024 Cervical Cancer Screening 10/15/2025 HPV/Cotest 10/15/2025 Pap Smear 10/15/2025 10/15/2022 SDOH Screening 10/21/2025 10/21/2024 Depression Screening 01/10/2026 01/10/2025, 01/11/20 25 Disability Screening 01/10/2026 01/10/2025 Tobacco Screening 01/10/2026 01/10/2025 Lipid Panel 01/12/2029 01/13/2024, 08/08/2022, 10/17/2021 DTaP/Tdap/Td [...] Procedure Name Priority Date/Time Associated Diagnosis Comments HEPATITIS C AB W/REFL TO HCV RNA, QN, PCR Routine 01/13/2024 8:52 AM EDT Annual physical exam HIV 1/2 ANTIGEN/ANTIBODY, FOURTH GENERATION W/RFL Routine 01/13/2024 8:52 AM EDT Annual physical exam LIPID PANEL, STANDARD Routine 01/13/2024 8:49 AM EDT Annual physical exam PAP SMEAR Routine 10/15/2022 3:58 PM EDT from Last 3 Months or Most Recently Relevant to Health Maintenance Results * Hepatitis C Antibody with Reflex to HCV, RNA, Quantitative, Real-Time PCR (01/13/2024 8:52 AM EDT) Hepatitis C Antibody Nonreactive Nonreactive [facility] Comment:Antibodies to HCV no t detected; does not exclude early acuteHCV infection. Blood Venous blood specimen / Unknown 01/13/2024 8:52 AM EDT 01/13/2024 11:22 AM EDT us Lorena Tijerina MD LAB BLOOD ORDERAB LES Final Result [facility] [address] [place] [phone] * HIV-1/2 Antigen and Antibodies, Fourth Generation, with Reflexes (01/13/2024 8:52 AM EDT) HIV AB/AG Nonreactive Nonreactive [facility] Comment:HIV-1 p24 Ag and/or HIV-1/HIV-2 Ab not detected.A test result that is nonreactive does not exclude thepossibility of exposure to or infection with HIV-1 and/orHIV-2. Nonreactive results in this assay for individualswith prior exposure to HIV-1 and/or HIV-2 may be due toantigen and antibody levels that are below the limit ofdetection of this assay.[employer] HIV Ag/Ab Combo assay result andsupplemental assay results should be interpreted inconjunction with the patient's clinical presentation,history and other laboratory results. If the results areinconsistent with clinical evidence, additional testing issuggested to confirm the result. Blood Venous blood specimen / Unknown 01/13/2024 8:52 AM EDT 01/13/2024 11:22 AM EDT us Lorena Tijerina MD LAB BLOOD ORDERAB LES Final Result [facility] [address] [place] [phone] * Lipid Panel, Standard (01/13/2024 8:49 AM EDT) Triglycerides 146 <150 mg/dL [facility] Comment:Desirable Triglyceri de: less than 150 mg/dLBorderline High Triglyceride 150-199 mg/dLHigh Triglyceride: 200-499 mg/dLVery High Triglyceride: greater than or equal to 5OO mg/dL Cholesterol 167 <200 mg/dL [facility] Comment:Desirable Cholestero l: less than 200 mg/dLBorderline High Cholesterol: 200-239 mg/dLHigh Cholesterol: greater than 239 mg/dL LDL Cholesterol Calculated 96 <100 mg/dL [facility] Comment:Desirable LDL: less than 100 mg/dLNear Optimal/Above Optimal LDL: 110- 129 mg/dLBorderline High LDL: 130-159 mg/dLHigh LDL: 160-189 mg/dLVery High LDL: greater than or equal to 190 mg/dL HDL Cholesterol 42 >40 mg/dL [facility] Comment:Desirable HDL: great er than 40 mg/dL Note: This HDL assay may give artificially low results in patients with liver disease. Blood Venous blood specimen / Unknown 01/13/2024 8:49 AM EDT 01/13/2024 11:22 AM EDT us Lorena Tijreina MD LAB BLOOD ORDERAB LES Final Result [facility] [address] [place] [phone] * Pap Smear (10/15/2022 3:58 PM EDT) 10/15/2022 3:58 PM EDT 10/16/2022 12:15 PM EDT Narrative [facility] - 11/04/2022 1:15 PM EDT ----- ------- Name: Teo JeisonSagrario Age/Sex: 27/F : 1995 Unit#: [id number] Attend Dr: Chris Bedoya MD Re10/15/22 Status: DEP REF Location: HO.LNP Disch: ----- ------- SPEC : [id number] RECD: 10/16/22-1215 STATUS: CRISTÓBAL CARCAMO NUM: [id number] MARQUIS: 10/15/22-0278 [facility] DR: Chris Bedoya MD ENTERED: 10/16/22-1239 SP TYPE: Pap Smr MCKENZIE DR: ORDERED: Pap Smear Interpretation Satisfactory for evaluation. Negative for intraepithelial lesion or malignancy. Clinical Information LMP: 10/10/22 Previous PAP test: Unknown Material Received ThinPrep-Cervical ----- ------- Signed (signature on file) Brit Rob 11/04/22 1315 ----- ------- END OF REPORT [facility] External Provider LAB CYT TIEN ORDERABLES Final Result [facility] [address] [place] [phone] from Last 3 Months or Most Recently Relevant to Health Maintenance Insurance [facility] C3 Member Subscriber Plan / Payer (Ef fective 2022-Present) Name:Sagrario Corona Relation to Subscriber:Self Name:Sagrario Corona Payer ID:Not on file Group ID:Not on file Type:Medicaid Address: [address] [place] [id number] [facility] Care Teams Dinkey Operator Slate Relationship Specialty Start Date End Date Lorena Rendon MD [address] [place] [phone] PCP - General Internal Medicine 10/25/22
--- OUTSIDE RECORDS SUMMARY | 2025-01-14 13:16 | XMS_ITS | Encounter Summary ---
Author Organization [employer] Address [address] [facility] [address] [place] [address] Care Team Providers Care Farm Instructor Name Role Phone Lorena Rendon MD Primary Care Pro vider Reason for Visit * Reason Onset Date Comments Med Refill 09/28/2024 Encounter Details Date Type Department Care Team ([facility] Contact Info) Description 09/28/2024 Telephone [facility] [address] [place] [address] Lorena Rendon MD [address] [place] [address] Med Refill Social History Tobacco Use Types Packs/Day Years [...] encounter Miscellaneous Notes * Telephone Encounter - Fay Rendon LPN - 09/28/2024 11:24 AM EDT Medication was sent to [facility][id number] today 09/28/24. * Telephone Encounter - Marie Quevedo - 09/28/2024 11:22 AM EDT TC from pt requesting medication refill. Medications needing refill : Tirzepatide-Weight Management (Zepbound) 7.5 MG/0.5ML solution auto-injector To be sent to: [facility]/pharmacy #[id number] LIBBY CAICEDO [address] documented in this encounter Plan of Treatment Upcoming Encounters Date Type Department Care Team (Late st Contact Info) Description 04/07/2025 9:30 AM EST Office Visit [facility] [address] [place], [place] [phone] Lorena Rendon MD [address] [place], [place] [phone] documented as of this encounter Visit Diagnoses Not on filedocumented in this encounter Additional Health Concerns Assessment Noted Time PHQ-9 Depression Total Score: 0 10/16/19 10:59 AM EDT documented as of this encounter Care Teams Farm Instructor Relationship Specialty Start Date End Date Lorena Rendon MD [address] [place] [phone] PCP - General Internal Medicine 10/25/22 documented as of this encounter
--- OUTSIDE RECORDS SUMMARY | 2025-01-14 13:16 | XMS_ITS | Encounter Summary ---
Author Organization [employer] Address [address] [facility] 7t [place] [address] Care Team Providers Care Etl Lead Name Role Phone Lorena Rendon MD Primary Care Pro vider Reason for Visit * Reason Comments Med Refill Encounter Details Date Type Department Care Team ([facility] Contact Info) Description 09/27/2024 Refill [facility] [address] [place] [address] Lorena Rendon MD [address] [place] [address] Social History Tobacco Use Types Packs/Day Years [...] Telephone Encounter - Lorena Tijerina MD - 09/28/2024 10:53 AM EDT Sent new dose documented in this encounter Plan of Treatment Upcoming Encounters Date Type Department Care Team (Late st Contact Info) Description 04/07/2025 9:30 AM EST Office Visit [facility] [address] [place] [phone] Lorena Rendon MD [address] [place] [phone] documented as of this encounter Visit Diagnoses Not on filedocumented in this encounter Additional Health Concerns Assessment Noted Time PHQ-9 Depression Total Score: 0 10/16/19 24 10:59 AM EDT documented as of this encounter Care Teams Etl Lead Relationship Specialty Start Date End Date Lorena Rendon MD [address] [place] [phone] PCP - General Internal Medicine 10/25/22 documented as of this encounter
== END 2025-01-14 12:47 | disposition home or self-care (01) ==
LOC: HO.US 12:46
PROVIDERS: PCP Student in an Organized Health Care Education/Training Program; Visit Provider Obstetrics & Gynecology
DX: N83.209 Unspecified ovarian cyst, unspecified side (principal)
CPT/HCPCS: 76830; 76856

== ENCOUNTER → 2025-01-14 12:48 | Outpatient (BNV) | payer OTHER, SELFPAY | PROVIDERS: PCP Student in an Organized Health Care Education/Training Program; Visit Provider Radiology Diagnostic Radiology | DX: N70.11 Chronic salpingitis (principal) | CPT/HCPCS: 76830; 76856 ==

== ENCOUNTER 2025-01-31 10:48 | Outpatient (AMB) | payer MEDICAID, SELFPAY ==
--- NOTE | 2025-01-31 10:58 | MHC.OFFVIS ---
Vital Signs 01/31/25 11:13 Height 5 ft 2 in Weight 143 lb BMI 26.2 BP 116/72 Intake Visit Reasons: annual/ ultrasound results Heating Repair Technician Required: Yes Heating Repair Technician Language: Cross Tie Maker Services: Heating Repair Technician Present (in person) Heating Repair Technician Name: TAM Winston Information Interpreted: non-clinical & clinical Reference Investigator: Reference Investigator Present (TAM Winston) Accompanied by: Self / Same As Patient Allergies No Known Allergies Allergy (Verified 01/31/25 11:07) HPI Comments Details: Presenting for annual exam. No complaints. Last Pap/HPV was negative in 10/08 Last pelvic ultrasound done in 01/10 as a follow-up of previous ultrasound done in 09/10 which showed right-sided hydrosalpinx confirmed by pelvic MRI done in 10/10. Last ultrasound showed the following: IMPRESSION: Right hydrosalpinx without change. [facility] Medical History Anemia Surgical History History of tubal ligation Social History Unable to assess alcohol history related to: Unknown Alcohol intake: never Patient Tobacco Use Status: Never used Tobacco Female Reproductive History Menstrual Date of last pap smear: 10/15/22 (negative pap smear ) Review of Systems Const All systems reviewed & are unremarkable except as noted in HPI and below Card Reports as per HPI Resp Reports as per HPI GI Reports as per HPI and Reports no additional complaints Reports as per HPI Physical Exam Vital Signs: Last Vital Signs BP 116/72 01/31/25 11:13 BMI result Body Mass Index 26.2 Const General: cooperative, healthy appearing and comfortable Chest Chest palpation & inspection: normal inspection of the chest and normal palpation of entire chest wall Breast/axilla inspection: normal inspection of the breasts and normal inspection of the axillae Breast/axilla palpation: normal palpation of the breasts, normal palpation of the axillae and no axillary lymphadenopathy Resp Effort & Inspection: normal respiratory effort Auscultation: clear to auscultation bilaterally Percussion: percussion normal Cardio Palpation: normal PMI Rate: regular rate Rhythm: regular rhythm Heart sounds: no murmurs and no rubs Peripheral pulses: Peripheral pulses 2+ throughout GI Inspection: Yes normal to inspection Palpation (GI): Soft to palpation, nontender, no guarding, not rigid and No hepatosplenomegaly present Percussion: Yes normal to percussion Auscultation: normal bowel sounds Rectal Exam - Female: deferred General: Yes bladder normal to palpation External Female Exam: No lesion Speculum Exam - Vagina: normal appearance of the vagina, normal palpation, normal vaginal discharge and not erythematous Speculum Exam - Cervix: normal appearance of the cervix and normal palpation Bimanual exam- vagina & uterus: normal bimanual exam, normal palpation, uterine size normal, bladder normal to palpation, consistency normal and normal palpation Bimanual Exam- Adnexa, other: normal adnexae, no masses and no tenderness Assessment & Plan Assessment & Plan (1) Well woman exam: Code(s): Z01.419 - Encounter for gynecological examination (general) (routine) without abnormal findings Category: Medical Plan: Cotesting not indicated this year. Counseled the patient about the recommended dietary allowance of 1000 mg of Calcium & 600 IU of vitamin D. The patient was instructed to perform monthly self-breast exams and to schedule an annual exam in a year; All questions answered and the patient verbalized understanding. Instructed the patient to schedule annual exam in a year (2) Hydrosalpinx: Code(s): N70.11 - Chronic salpingitis Category: Medical Plan: Discussed with the patient the finding on ultrasound showing right stable hydrosalpinx, offered the patient expectant management versus laparoscopic salpingectomy, pros and cons, risks and benefits were discussed with the patient, the patient decided to proceed with expectant management. Instructions given to patient to call in case of fever above 100.4, pelvic pain or any other concerns. All questions answered, the patient verbalized understanding. Coding Level of Care Code Est Pt Prev Care 18-39y(95094) Diagnoses Well woman exam Z01.419 Hydrosalpinx N70.11
[2025-01-31 11:13] VITALS: BP 116/72; BMI 26.2
--- OUTSIDE RECORDS SUMMARY | 2025-01-31 14:11 | XMS_ITS | Encounter Summary ---
Author Organization [employer] Address [address] [facility] 7t [place] [address] Care Team Providers Care Conveyor Belt Operator Name Role Phone Lorena Rendon MD Primary Care Pro vider Reason for Visit * Reason Comments Med Refill Encounter Details Date Type Department Care Team ([facility] st Contact Info) Description 07/22/2024 Refill [facility] [address] [place] [address] Lorena Rendon MD [address] [place] [address] Social History Tobacco Use Types Packs/Day Years [...] Description 04/07/2025 9:30 AM EST Office Visit [facility] [address] [place] [phone] Lorena Rendon MD [address] [place] [phone] documented as of this encounter Visit Diagnoses Not on filedocumented in this encounter Additional Health Concerns Assessment Noted Time PHQ-9 Depression Total Score: 0 10/16/19 24 10:59 AM EDT documented as of this encounter Care Teams Conveyor Belt Operator Relationship Specialty Start Date End Date Lorena Rendon MD [address] [place] [address] [phone] PCP - General Internal Medicine 10/25/22 documented as of this encounter
--- OUTSIDE RECORDS SUMMARY | 2025-01-31 14:11 | XMS_ITS | Clinical Summary ---
Author Organization [employer] Address [address] [facility] 7t [place] [address] Care Team Providers Care Supervisor Blasting Name Role Phone Lorena Rendon MD Primary [...] currently taking Fe daily. - Referred to [facility]. - Pt will return to clinic to follow up with PCP in 4-6 weeks to follow labs done today. Resolved Problems Problem Noted Date Diagnosed Date Resolved Date Obesity 12/17/2022 01/10/2025 Amenorrhea 09/12/2022 12/17/2022 Overview (10/25/2022): Established with [facility] Initial labs all WNL Upcoming Assessment & Plan (09/12/2022 10:11 PM EDT): Amenorrhea for 3 months, negative test at home and repeated in urine here today. Denies symptoms concerning for thyroid disease and hyperprolactinemia. - Will check labs. - Referred to recording clerk today. Cyst of right ovary 09/12/2022 12/18/19 Assessment & Plan (09/12/2022 10:13 PM EDT): [place] on her phone): enlargement of rt ovary, secondary to 5.2 cm, complex cyst, possibly hemmorhagic. - Referred today to [facility] for further evaluation and imaging. - Papsmear 2019: normal with negative HPV. Encounters Date Type Department Care Team Description 01/27/2025 Telephone [facility] [address] [place] [phone] Lorena Rendon MD Medication Question 01/10/2025 2:00 PM EDT Office Visit [facility] [address] [place] [phone] Lorena Rendon MD Obesity due to excess calories without serious comorbidity, unspecified class (Primary Dx); Dietary counseling; Exercise counseling; Nephrolithiasis; Annual physical exam; Overweight (BMI 25.0-29.9); Health care maintenance; Iron deficiency anemia due to chronic blood loss 01/10/2025 Travel 01/07/2025 Telephone [facility] [address] [place] [address] [phone] Lorena Rendon MD CHART PREP 01/03/2025 Patient Outreach [facility] [address] [place], [place] [phone] Lorena Rendon MD Pre-visit Planning (SDOH was already completed) 12/23/2024 Orders Only [facility] [address] [place] [address] [phone] Lorena Rendon MD Obesity due to excess calories without serious comorbidity, unspecified class (Primary Dx) 12/23/2024 Refill [facility] [address] [place] [address] [phone] Lorena Rendon MD 12/23/2024 Telephone [facility] [address] [place] [address] Lorena Rendon MD Med Refill 11/24/2024 Telephone [facility] [address] [place] [address] Lorena Rendon MD Prior Auth Prescription 11/23/2024 Refill [facility] [address] [place], [place] [phone] Lorena Rendon MD from Last 3 Months Immunizations Immunization Administration [...] Description 04/07/2025 9:30 AM EST Office Visit [facility] [address] [place] [phone] Lorena Rendon MD [address] [place] [address] Health Maintenance Due Date Last Done Comments Family Planning (PISQ) 2008 HPV Vaccines (1 - 3-dose series) 2008 Hepatitis B Vaccines (1 of 3 - 19+ 3-dose series) 2012 COVID-19 Vaccine (3 - season) 2025 12/21/2020, 11/23/2020 Influenza Vaccine (#1) 2025 Alcohol/Substance Use Screening 04/20/2025 04/20/2024 Cervical Cancer Screening 10/15/2025 HPV/Cotest 10/15/2025 Pap Smear 10/15/2025 10/15/2022 SDOH Screening 10/21/2025 10/21/2024 Depression Screening 01/10/2026 01/10/2025, 01/11/20 Disability Screening 01/10/2026 01/10/2025 Tobacco Screening 01/10/2026 01/10/2025 Lipid Panel 01/12/2029 01/13/2024, 0808/2022, 10/17/2021 DTaP/Tdap/Td [...] Associated Diagnosis Comments US PELVIS TRANSVAGINAL Routine 01/14/2025 1:02 PM EDT HEPATITIS C AB W/REFL TO [...] Health Maintenance Results * US Pelvis Transvaginal (01/14/2025 1:02 PM EDT) Anatomical Region Laterality Modality Pelvis Ultrasound 01/14/2025 1:02 PM EDT Narrative 01/14/2025 1:42 PM EDT [place] [address] Ultrasound Report Signed Patient: Sagrario Corona MR#: [id number] : 1995 Acct:[id number] Age/Sex: 29 / F ADM Date: 01/14/25 Loc: HO.US Attending Dr: Chris Bedoya MD Ordering Physician: Chris Bedoya MD Date of Service: 01/14/25 Procedure(s): US pelvic and transvaginal Accession Number(s): [id number] cc: Lorena Rendon MD; Chris Bedoya MD EXAMINATION: US PELVIS TRANSABDOMINAL AND TRANSVAGINAL HISTORY: N83.209 - Unspecified ovarian cyst, unspecified side COMPARISON: Comparison is made with the prior examination dated 09/08/2024. TECHNIQUE: Transabdominal and endovaginal real-time 2D nicole-scale ultrasound was performed. FINDINGS: Uterus: The uterus is normal in size, measuring 8.2 x 3.7 x 4.8 cm. Myometrium has a normal echotexture. No fibroids are identified. Endometrium: The endometrial stripe measures 5 mm in thickness. Right ovary: The right ovary measures 2.0 x 2.0 x 1.7 cm. The right ovary is normal in size and echotexture. There is a 7.9 x 3.7 x 3.6 cm tubular structure in the right adnexa consistent with a hydrosalpinx as noted on prior imaging. Left ovary: The left ovary measures 2.4 x 2.9 x 2.4 cm. The left ovary is normal in size and echotexture. Pelvic fluid: none. US/US pelvic and transvaginal IMPRESSION: Right hydrosalpinx without change. Electronically signed by: Lang Pina MD 01/14/2025 01:39 PM EDT RP Dictated By: Lang Pina MD Signed By: <Electronically signed by Lang Pina MD in [place]> 01/14/25 1339 DD/ 1302 TD/TT: 01/14/25 1312 Tennis Ball Coverer Hand: Procedure Note Donotuseinterpreter, Image - 01/14/2025 [place] [address] Ultrasound Report Signed Patient: Clovis Corona#: [id number] : 1995Acct:[id number] Age/Sex: Date: 01/14/25 Loc: HO.US Attending Dr: Chris Bedoya MD Ordering Physician: Chris Bedoya MD Date of Service: 01/14/25 Procedure(s): US pelvic and transvaginal Accession Number(s): [id number] cc: Lorena Rendon MD; Chris Bedoya MD EXAMINATION: US PELVIS TRANSABDOMINAL AND TRANSVAGINAL HISTORY: N83.209 - Unspecified ovarian cyst, unspecified side COMPARISON: Comparison is made with the prior examination dated 09/08/2024. TECHNIQUE: Transabdominal and endovaginal real-time 2D nicole-scale ultrasound was performed. FINDINGS: Uterus: The uterus is normal in size, measuring 8.2 x 3.7 x 4.8 cm. Myometrium has a normal echotexture. No fibroids are identified. Endometrium: The endometrial stripe measures 5 mm in thickness. Right ovary: The right ovary measures 2.0 x 2.0 x 1.7 cm. The right ovary is normal in size and echotexture. There is a 7.9 x 3.7 x 3.6 cm tubular structure in the right adnexa consistent with a hydrosalpinx as noted on prior imaging. Left ovary: The left ovary measures 2.4 x 2.9 x 2.4 cm. The left ovary is normal in size and echotexture. Pelvic fluid: none. US/US pelvic and transvaginal IMPRESSION: Right hydrosalpinx without change. Electronically signed by: Lang Pina MD 01/14/2025 01:39 PM EDT RP Dictated By: Lang Pina MD Signed By: <Electronically signed by Lang Pina MD in [place]> 01/14/25 1339 DD/ 1302 TD/TT: 01/14/25 1312 Tennis Ball Coverer Hand: [facility] External Provider IMG US PROCEDURES Final Result * Hepatitis C Antibody with Reflex to HCV, RNA, Quantitative, Real-Time PCR (01/13/2024 8:52 AM EDT) Hepatitis C Antibody Nonreactive Nonreactive [facility] Comment:Antibodies to HCV no t detected; does not exclude early acuteHCV infection. Blood Venous blood specimen / Unknown 01/13/2024 8:52 AM EDT 01/13/2024 11:22 AM EDT Lorena Tijerina MD LAB BLOOD ORDERAB LES Final Result [facility] [address] [place] [phone] * HIV-1/2 Antigen and Antibodies, Fourth Generation, with Reflexes (01/13/2024 8:52 AM EDT) HIV AB/AG Nonreactive Nonreactive [facility] Comment:HIV-1 p24 Ag and/or HIV-1/HIV-2 Ab not detected.A test result that is nonreactive does not exclude thepossibility of exposure to or infection with HIV-1 and/orHIV-2. Nonreactive results in this assay for individualswith prior exposure to HIV-1 and/or HIV-2 may be due toantigen and antibody levels that are below the limit ofdetection of this assay.The [employer]kinn[employer]te HIV Ag/Ab Combo assay result andsupplemental assay results should be interpreted inconjunction with the patient's clinical presentation,history and other laboratory results. If the results areinconsistent with clinical evidence, additional testing issuggested to confirm the result. Blood Venous blood specimen / Unknown 01/13/2024 8:52 AM EDT 01/13/2024 11:22 AM EDT us Lorena Tijerina MD LAB BLOOD ORDERAB LES Final Result [facility] [address] [place] [phone] * Lipid Panel, Standard (01/13/2024 8:49 AM EDT) Triglycerides 146 <150 mg/dL [facility] Comment:Desirable Triglyceri de: less than 150 mg/dLBorderline High Triglyceride 150-199 mg/dLHigh Triglyceride: 200-499 mg/dLVery High Triglyceride: greater than or equal to 5OO mg/dL Cholesterol 167 <200 mg/dL [facility] Comment:Desirable Cholestero l: less than 200 mg/dLBorderline High Cholesterol: 200-239 mg/dLHigh Cholesterol: greater than 239 mg/dL LDL Cholesterol Calculated 96 <100 mg/dL [facility] Comment:Desirable LDL: less than 100 mg/dLNear Optimal/Above Optimal LDL: 110- 129 mg/dLBorderline High LDL: 130-159 mg/dLHigh LDL: 160-189 mg/dLVery High LDL: greater than or equal to 190 mg/dL HDL Cholesterol 42 >40 mg/dL [facility] Comment:Desirable HDL: great er than 40 mg/dL Note: This HDL assay may give artificially low results in patients with liver disease. Blood Venous blood specimen / Unknown 01/13/2024 8:49 AM EDT 01/13/2024 11:22 AM EDT us Lorena Tijerina MD LAB BLOOD ORDERAB LES Final Result [facility] [address] [place] [phone] * Pap Smear (10/15/2022 3:58 PM EDT) 10/15/2022 3:58 PM EDT 10/16/2022 12:15 PM EDT Narrative [facility] - 11/04/2022 1:15 PM EDT ----- ------- Name: Teo MchughSagrario Age/Sex: 27/F : 1995 Unit#: [id number] Attend Dr: Chris Bedoya MD Re10/15/22 Status: DEP REF Location: HO.LNP Disch: ----- ------- SPEC : [id number] RECD: 10/16/22-1215 STATUS: CRISTÓBAL CARCAMO NUM: [id number] MARQUIS: 10/15/22-6788 [facility] DR: Chris Bedoya MD ENTERED: 10/16/22-1239 SP TYPE: Pap Smr OT DR: ORDERED: Pap Smear Interpretation Satisfactory for evaluation. Negative for intraepithelial lesion or malignancy. Clinical Information LMP: 10/10/22 Previous PAP test: Unknown Material Received ThinPrep-Cervical ----- ------- Signed (signature on file) Brit Rob 11/04/22 1315 ----- ------- END OF REPORT [facility] External Provider LAB [facility] ORDERABLES Final Result [facility] [address] [place] [phone] from Last 3 Months or Most Recently Relevant to Health Maintenance Insurance [employer] [facility] Care Teams Supervisor Blasting Relationship Specialty Start Date End Date Lorena Rendon MD [address] [place] [phone] PCP - General Internal Medicine 10/25/22
--- OUTSIDE RECORDS SUMMARY | 2025-01-31 14:11 | XMS_ITS | Encounter Summary ---
Author Organization [employer] [facility] Address [address] [place] [address] Care Team Providers Care Contract Serviceman Name Role Phone Lorena Rendon MD Primary Care Pro vider Reason for Visit * Reason Comments Med Refill Encounter Details Date Type Department Care Team ([facility] Contact Info) Description 02/09/2023 Refill [facility] [address] [place] [address] [phone] Lorena Rendon MD [address] [place] [address] [phone] Iron deficiency anemia, unspecified iron deficiency anemia [...] Upcoming Encounters Date Type Department Care Team ([facility] Contact Info) Description 04/07/2025 9:30 AM EST Office Visit [facility] [address] [place] [address] [phone] Lorena Rendon MD [address] [place] [address] [place] [phone] documented as of this encounter Visit Diagnoses Diagnosis Iron deficiency anemia, unspecified iron deficiency anemia type documented in this encounter Additional Health Concerns Assessment Noted Time PHQ-9 Depression Total Score: 0 12/18/19 10:33 AM EDT documented as of this encounter Care Teams Contract Serviceman Relationship Specialty Start Date End Date Lorena Rendon MD [address] [place] [address] PCP - General Internal Medicine 10/25/22 documented as of this encounter
--- OUTSIDE RECORDS SUMMARY | 2025-01-31 14:11 | XMS_ITS | Encounter Summary ---
Author Organization [employer] Address [address] [facility] 7t [place] [address] Care Team Providers Care Calculus Tutor Name Role Phone Lorena Rendon MD Primary Care Pro vider Reason for Visit * Reason Comments Med Refill Encounter Details Date Type Department Care Team ([facility] Contact Info) Description 09/27/2024 Refill [facility] [address] [place] [address] Lorena Rendon MD [address] [place] [address] Social History Tobacco Use Types Packs/Day Years [...] Description 04/07/2025 9:30 AM EST Office Visit [facility] [address] [place] [address] [phone] Lorena Rendon MD [address] [place] [address] [phone] documented as of this encounter Visit Diagnoses Not on filedocumented in this encounter Additional Health Concerns Assessment Noted Time PHQ-9 Depression Total Score: 0 10/16/19 24 10:59 AM EDT documented as of this encounter Care Teams Calculus Tutor Relationship Specialty Start Date End Date Lorena Rendon MD [address] [place] [phone] PCP - General Internal Medicine 10/25/22 documented as of this encounter
--- OUTSIDE RECORDS SUMMARY | 2025-01-31 14:11 | XMS_ITS | Encounter Summary ---
Author Organization [employer] Address [address] [facility] [address] 7t [place] [address] Care Team Providers Care Shoe Repairer Name Role Phone Juanita Ji ARNAV Primary Care Provider Lorena Rendon MD Primary Care Pro vider Reason for Visit * Reason Comments Med Change Request Encounter Details Date Type Department Care Team (Late st Contact Info) Description 08/19/2022 Refill [facility] [address] [place] [address] Crow Bernal FNP Acute rhinosinusitis Social History [...] Description 04/07/2025 9:30 AM EST Office Visit [facility] [address] [place] [phone] Lorena Rendon MD [address] [place] [phone] documented as of this encounter Visit Diagnoses Diagnosis Acute rhinosinusitis documented in this encounter Care Teams Shoe Repairer Relationship Specialty Start Date End Date Juanita Ji FNP [address] [place] [phone] PCP - General Family Medicine 01/15/22 10/24/22 Lorena Rendon MD [address] [place] [phone] PCP - General Internal Medicine 10/25/22 documented as of this encounter
--- OUTSIDE RECORDS SUMMARY | 2025-01-31 14:11 | XMS_ITS | Encounter Summary ---
Author Organization [employer] Address [address] [facility] [address] [place] [address] Care Team Providers Care Nightman Name Role Phone Lorena Rendon MD Primary Care Pro vider Reason for Visit * Reason Onset Date Comments Medication Question 01/27/2025 Encounter Details Date Type Department Care Team ([facility] st Contact Info) Description 01/27/2025 Telephone [facility] [address] [place] [address] Lorena Rendon MD [address] [place] [address] Medication Question Social History Tobacco Use Types Packs/Day Years [...] encounter Miscellaneous Notes * Telephone Encounter - Meghana Cedillo RN - 01/27/2025 10:21 AM EDT TC [facility] pt pharmacy [facility] [address] [facility] [place] in regard to the pt reporting difficulty obtaining the prescription. RN called this [facility] who stated that this dose of Zepbound has been on back order but should be coming in on a shipment this afternoon. RN then called the pt with [facility] surfboard designer #[id number] to inform of this information and the pt was agreeable with no further questions or concerns. * Telephone Encounter - Grady Dowell - 01/27/2025 8:55 AM EDT Tc from pt requesting for Tirzepatide-Weight Management (Zepbound) 5 MG/0.5ML solution auto-injector to be sent to [facility] pharmacy due to having too many issues with [facility]. If any questions you can contact pt at [phone]. documented in this encounter Plan of Treatment Upcoming Encounters Date Type Department Care Team ([facility] Contact Info) Description 04/07/2025 9:30 AM EST Office Visit [facility] [address] [place] [address] [place] [address] Lorena Rendon MD [address] [place], [place] [phone] documented as of this encounter Visit Diagnoses Not on filedocumented in this encounter Additional Health Concerns Assessment Noted Time PHQ-9 Depression Total Score: 0 01/11/20 25 2:27 PM EDT documented as of this encounter Care Teams Nightman Relationship Specialty Start Date End Date Lorena Rendon MD [address] [place] [address] PCP - General Internal Medicine 10/25/22 documented as of this encounter
--- OUTSIDE RECORDS SUMMARY | 2025-01-31 14:11 | XMS_ITS | Encounter Summary ---
Author Organization [employer] Address [address] [facility] 7t [place] [address] Care Team Providers Care Oil Boiler Name Role Phone Lorena Rendon MD Primary Care Pro vider Reason for Visit * Reason Comments Med Change Request Encounter Details Date Type Department Care Team ([facility] Contact Info) Description 12/23/2024 Refill [facility] [address] [place] [address] Lorena Rendon MD [address] [place] [address] Social History Tobacco Use Types Packs/Day Years [...] 9:30 AM EST Office Visit [facility] MED[facility]INE [address] [place] [phone] Lorena Rendon MD [address] [place] [phone] documented as of this encounter Visit Diagnoses Not on filedocumented in this encounter Additional Health Concerns Assessment Noted Time PHQ-9 Depression Total Score: 0 10/16/19 24 10:59 AM EDT documented as of this encounter Care Teams Oil Boiler Relationship Specialty Start Date End Date Lorena Rendon MD [address] [place] [phone] PCP - General Internal Medicine 10/25/22 documented as of this encounter
== END 2025-01-31 11:35 | disposition home or self-care (01) ==
LOC: HO.HWS 10:48
PROVIDERS: PCP Student in an Organized Health Care Education/Training Program; Visit Provider Obstetrics & Gynecology
DX: Z01.419 Encounter for gynecological examination (general) (routine) without abnormal findings (principal); N70.11 Chronic salpingitis
CPT/HCPCS: 99395; 99459

== ENCOUNTER → 2025-01-31 10:48 | Outpatient (BNVA) | payer MEDICAID, SELFPAY | PROVIDERS: PCP Student in an Organized Health Care Education/Training Program; Visit Provider Obstetrics & Gynecology | DX: Z01.419 Encounter for gynecological examination (general) (routine) without abnormal findings (principal) | CPT/HCPCS: 99395 ==

== ENCOUNTER 2025-02-15 08:34 | Outpatient (AMB) | payer MEDICAID, SELFPAY ==
--- NOTE | 2025-02-15 08:35 | MHC.OFFVIS ---
Intake Visit Reasons: Questions regarding ovarian cyst Derrick Boat Operator Required: Yes Derrick Boat Operator Language: Transformation Specialist Services: Derrick Boat Operator Present (in person) Derrick Boat Operator Name: Monica TURCIOS Information Interpreted: non-clinical & clinical Allergies No Known Allergies Allergy (Verified 02/15/25 08:35) HPI Comments Details: The patient is schedule a telehealth visit because she has additional questions regarding findings on pelvic ultrasound recently. No vaginal discharge, no pelvic pain or pressure, no fever or chills no other complaints 01/06/2025 pelvic ultrasound showed the following: Uterus: The uterus is normal in size, measuring 8.2 x 3.7 x 4.8 cm. Myometrium has a normal echotexture. No fibroids are identified. Endometrium: The endometrial stripe measures 5 mm in thickness. Right ovary: The right ovary measures 2.0 x 2.0 x 1.7 cm. The right ovary is normal in size and echotexture. There is a 7.9 x 3.7 x 3.6 cm tubular structure in the right adnexa consistent with a hydrosalpinx as noted on prior imaging. Left ovary: The left ovary measures 2.4 x 2.9 x 2.4 cm. The left ovary is normal in size and echotexture. Pelvic fluid: none. US/US pelvic and transvaginal IMPRESSION: Right hydrosalpinx without change. [facility] History Anemia Surgical History History of tubal ligation Social History Alcohol intake: never Patient Tobacco Use Status: Never used Tobacco Review of Systems Const All systems reviewed & are unremarkable except as noted in HPI and below Reports as per HPI and Reports no additional complaints GI Reports no additional complaints Reports no additional complaints Telehealth Telehealth Telehealth Platform: [facility] Location of provider rendering services: practice address Location of patient: address on file Patient Identification confirmed using: Name, : Yes Telehealth method: video Patient verbally consented to treatment: Yes Patient verbally consented to billing insurance company: Yes Patient informed of any privacy concerns related to visit: Yes Minutes spent on Phone/Video with Pt.: 8 Assessment & Plan Assessment & Plan (1) Hydrosalpinx: Code(s): N70.11 - Chronic salpingitis Category: Medical Plan: Discussed with the patient the finding on ultrasound showing right hydrosalpinx similar to previous ultrasound done in 09/10. Explained to the patient different causes of hydrosalpinx and options of treatment including expectant management versus laparoscopic salpingectomy. All pros and cons risks and benefits of each were discussed with the patient the patient decided to proceed with expectant management. Call order ultrasound in 5 months, instructions given to patient to call all go to emergency room in case of pain, temperature above 100.4 or if she changes her mind regarding surgical versus expectant management. Otherwise schedule an ultrasound follow-up appointment in six-months. All questions answered, the patient verbalized understanding. I spent a total of 20 minutes reviewing the chart, talking to the patient via video and documenting in the medical record. Orders: Orders US pelvic and transvaginal 5 Months N70.11 - Chronic salpingitis Coding Level of Care Code Tele Est Pt Level 3 (26505) Diagnoses Hydrosalpinx N70.11
--- OUTSIDE RECORDS SUMMARY | 2025-02-15 08:56 | XMS_ITS | Encounter Summary ---
Author Organization [employer] Address 75 [facility] 7t [place] [address] Care Team Providers Care Branch Operations Manager Name Role Phone Lorena Rendon MD Primary Care Pro vider Reason for Visit * Reason Comments Med Change Request Encounter Details Date Type Department Care Team ([facility] Contact Info) Description 12/23/2024 Refill [facility] [address] [place] [address] Lorena Rendon MD [address] [place] [address] Social History Tobacco Use Types Packs/Day Years [...] Description 04/07/2025 9:30 AM EST Office Visit [facility] [address] [place] [phone] Lorena Rendon MD [address] [place] [phone] documented as of this encounter Visit Diagnoses Not on filedocumented in this encounter Additional Health Concerns Assessment Noted Time PHQ-9 Depression Total Score: 0 10/16/19 24 10:59 AM EDT documented as of this encounter Care Teams Branch Operations Manager Relationship Specialty Start Date End Date Lorena Rendon MD [address] [place] [phone] PCP - General Internal Medicine 10/25/22 documented as of this encounter
--- OUTSIDE RECORDS SUMMARY | 2025-02-15 08:56 | XMS_ITS | Clinical Summary ---
Author Organization [employer] Address [address] [facility] [address] [place] [address] Care Team Providers Care Substation Electrician Name Role Phone Lorena Rendon MD Primary Care Pro vider Allergies No known active allergies Medications ascorbic acid (Vitamin C) 250 MG chewable tablet Chew 1 tablet (250 mg) Once per day. 90 tablet 4 Active ferrous sulfate 325 (65 Fe) MG EC tablet TAKE 1 TABLET (325 MG) BY MOUTH WITH BREAKFAST 90 tablet 5 Active medroxyPROGESTER one (Provera) 10 MG tablet PLEASE SEE ATTACHED FOR DETAILED DIRECTIONS 5 Active cyanocobalamin (Vitamin B-12) 1000 MCG tablet Take 1,000 mcg by mouth Once per day. Active Tirzepatide-Weig ht Management (Zepbound) 7.5 MG/0.5ML solution auto-injectorInd ications:Obesity , unspecified class, unspecified obesity type, unspecified whether serious comorbidity present Inject 0.5 mL (7.5 mg) under the skin 1 (one) time per week. Increase dose monthly 2 mL 5 Active Tirzepatide-Weig ht Management (Zepbound) 5 MG/0.5ML solution auto-injectorInd ications:Obesity due to excess calories without serious comorbidity, unspecified class Inject 0.5 mL (5 mg) under the skin 1 (one) time per week. Increase dose monthly 2 mL 5 02/10/20 25 Active Problems Problem Noted Date Diagnosed Date Overweight (BMI 25.0-29.9) 01/10/2025 Nephrolithiasis 10/17/2023 Health care maintenance 12/17/2022 Anemia 09/12/2022 Assessment & Plan (09/12/2022 10:16 PM EDT): From previous labs noted a history of anemia. Hb in 11.8 for patient with history of heavy menstrual periods. - Pt currently taking Fe daily. - Referred to SPEECH ASSISTANT. - Pt will return to clinic to follow up with PCP in 4-6 weeks to follow labs done today. Resolved Problems Problem Noted Date Diagnosed Date Resolved Date Obesity 12/17/2022 01/10/2025 Amenorrhea 09/12/2022 12/17/2022 Overview (10/25/2022): Established with [facility] SPEECH ASSISTANT Initial labs all WNL Upcoming Assessment & Plan (09/12/2022 10:11 PM EDT): Amenorrhea for 3 months, negative test at home and repeated in urine here today. Denies symptoms concerning for thyroid disease and hyperprolactinemia. - Will check labs. - Referred to hvac estimator today. Cyst of right ovary 09/12/2022 12/18/19 Assessment & Plan (09/12/2022 10:13 PM EDT): [place] on her phone): enlargement of rt ovary, secondary to 5.2 cm, complex cyst, possibly hemmorhagic. - Referred today to SPEECH ASSISTANT for further evaluation and imaging. - Papsmear 2019: normal with negative HPV. Encounters Date Type Department Care Team Description 02/11/2025 Orders Only [facility] [address] [place] [phone] Lorena Rendon MD Obesity, unspecified class, unspecified obesity type, unspecified whether serious comorbidity present (Primary Dx) 02/11/2025 Refill [facility] [address] [place] [address] Lorena Rendon MD Obesity due to excess calories without serious comorbidity, unspecified class 01/27/[address] [address] Lorena Rendon MD Medication Question 01/10/2025 2:00 PM EDT Office Visit [facility] [address] [place] [phone] Lorena Rendon MD Obesity due to excess calories without serious comorbidity, unspecified class (Primary Dx); Dietary counseling; Exercise counseling; Nephrolithiasis; Annual physical exam; Overweight (BMI 25.0-29.9); Health care maintenance; Iron deficiency anemia due to chronic blood loss 01/10/2025 Travel 01/07/2025 Telephone [facility] [address] [place] [phone] Lorena Rendon MD CHART PREP 01/03/2025 Patient Outreach [facility] [address] [place] [address] Lorena Rendon MD Pre-visit Planning (SDOH was already completed) 12/23/2024 Orders Only [facility] [address] [place] [phone] Lorena Rendon MD Obesity due to excess calories without serious comorbidity, unspecified class (Primary Dx) 12/23/2024 Refill [facility] [address] [place] [phone] Lorena Rendon MD 12/23/2024 Telephone [facility] [address] [place] [phone] Lorena Rendon MD Med Refill 11/24/2024 Telephone [facility] [address] [place] [phone] Lorena Rendon MD Prior Auth Prescription 11/23/2024 Refill [facility] [address] [place] [phone] Lorena Rendon MD from Last 3 Months [...] Description 04/07/2025 9:30 AM EST Office Visit [facility] [address] [place], [place] [phone] Lorena Rendon MD [address] [place], [place] [phone] Health Maintenance Due Date Last Done Comments Family Planning (PISQ) 2008 HPV Vaccines (1 - 3-dose series) 2008 Hepatitis B Vaccines (1 of 3 - 19+ 3-dose series) 2012 COVID-19 Vaccine ( season) 2025 12/21/2020, 11/23/2020 Influenza Vaccine (#1) 2025 Alcohol/Substance Use Screening 04/20/2025 04/20/2024 Cervical Cancer Screening 10/15/2025 HPV/Cotest 10/15/2025 Pap Smear 10/15/2025 10/15/2022 SDOH Screening 10/21/2025 10/21/2024 Depression Screening 01/10/2026 01/10/2025, 01/11/20 25 Disability Screening 01/10/2026 01/10/2025 Tobacco Screening 01/10/2026 01/10/2025 Lipid Panel 01/12/2029 01/13/2024, 08/0 08/2022, 10/17/2021 [...] PM EDT Narrative 01/14/2025 1:42 PM EDT [address] [address] Ultrasound Report Signed Patient: Sagrario Corona MR#: [id number] : 1995 Acct:[id number] Age/Sex: 29 / F ADM Date: 01/14/25 Loc: HO.US Attending Dr: Chris Bedoya MD Ordering Physician: Chris Bedoya MD Date of Service: 01/14/25 Procedure(s): US pelvic and transvaginal Accession Number(s): [id number] cc: Lorena Rendon MD; Chris Bedoya MD [...] Lang Pina MD 01/14/2025 01:39 PM EDT Dictated By: Lang Pina MD Signed By: <Electronically signed by Lang Pina MD in OV> 01/14/25 1339 DD/ 1302 TD/TT: 01/14/25 1312 Co Founder And Chairman: Procedure Note Donotuseinterpreter, Image - 01/14/[address] [address] Ultrasound Report Signed Patient: Clovis Corona#: [id number] : 1995Acct:[id number] Age/Sex: 29 / FADM Date: 01/14/25 Loc: HO.US Attending Dr: Chris Bedoya MD Ordering Physician: Chris Bedoya MD Date of Service: 01/14/25 Procedure(s): US pelvic and transvaginal Accession Number(s): [id number] cc: Lorena Rendon MD; Chris Bedoya MD [...] Lang Pina MD 01/14/2025 01:39 PM EDT Dictated By: Lang Pina MD Signed By: <Electronically signed by Lang Pina MD in OV> 01/14/25 1339 DD/ 1302 TD/TT: 01/14/25 1312 Co Founder And Chairman: Result [facility] External Provider IMG US PROCEDURES Final Result * Hepatitis C Antibody with Reflex to HCV, RNA, Quantitative, Real-Time PCR (01/13/2024 8:52 AM EDT) Hepatitis C Antibody Nonreactive Nonreactive [facility] Comment:Antibodies to HCV no t detected; does not exclude early acuteHCV infection. Blood Venous blood specimen / Unknown 01/13/2024 8:52 AM EDT 01/13/2024 11:22 AM EDT Result [facility] Lorena Tijerina MD LAB BLOOD ORDERAB LES Final Result [facility] [address] [place] [phone] * HIV-1/2 Antigen and Antibodies, Fourth Generation, with Reflexes (01/13/2024 8:52 AM EDT) HIV AB/AG Nonreactive Nonreactive [facility] Comment:HIV-1 p24 Ag and/or HIV-1/HIV-2 Ab not detected.A test result that is nonreactive does not exclude thepossibility of exposure to or infection with HIV-1 and/orHIV-2. Nonreactive results in this assay for individualswith prior exposure to HIV-1 and/or HIV-2 may be due toantigen and antibody levels that are below the limit ofdetection of this assay.The [employer] HIV Ag/Ab Combo assay result andsupplemental assay results should be interpreted inconjunction with the patient's clinical presentation,history and other laboratory results. If the results areinconsistent with clinical evidence, additional testing issuggested to confirm the result. Blood Venous blood specimen / Unknown 01/13/2024 8:52 AM EDT 01/13/2024 11:22 AM EDT Result [facility] Lorena Tijerina MD LAB BLOOD ORDERAB LES Final Result Performing Organization Address [facility]/ZIP Co de Phone Number [facility] [address] [place] [phone] * Lipid Panel, Standard (01/13/2024 8:49 AM EDT) Triglycerides 146 <150 mg/dL [facility] Comment:Desirable Triglyceri de: less than 150 mg/dLBorderline High Triglyceride 150-199 mg/dLHigh Triglyceride: 200-499 mg/dLVery High Triglyceride: greater than or equal to 5OO mg/dL Cholesterol 167 <200 mg/dL [facility] Comment:Desirable Cholestero l: less than 200 mg/dLBorderline High Cholesterol: 200-239 mg/dLHigh Cholesterol: greater than 239 mg/dL LDL Cholesterol Calculated 96 <100 mg/dL [facility] Comment:Desirable LDL: less than 100 mg/dLNear Optimal/Above Optimal LDL: 110- 129 mg/dLBorderline High LDL: 130-159 mg/dLHigh LDL: 160-189 mg/dLVery High LDL: greater than or equal to 190 mg/dL HDL Cholesterol 42 >40 mg/dL [facility] Comment:Desirable HDL: great er than 40 mg/dL Note: This HDL assay may give artificially low results in patients with liver disease. Blood Venous blood specimen / Unknown 01/13/2024 8:49 AM EDT 01/13/2024 11:22 AM EDT us Lorena Tijerina MD LAB BLOOD ORDERAB LES Final Result Performing Organization Address City/[facility]/ZIP Co de Phone Number [facility] [address] [place] [phone] [phone] * Pap Smear (10/15/2022 3:58 PM EDT) 10/15/2022 3:58 PM EDT 10/16/2022 12:15 PM EDT Narrative [facility] - 11/04/2022 1:15 PM EDT ----- ------- Name: Sagrario Corona Age/Sex: 27/F : 1995 Unit#: [id number] Attend Dr: Chris Bedoya MD Re10/15/22 Status: DEP REF Location: [facility] Disch: ----- ------- SPEC : [id number] RECD: 10/16/22-1215 STATUS: CRISTÓBAL REYou NUM: [id number] MARQUIS: 10/15/22-[address] [facility] [address]: Chris Bedoya MD ENTERED: 10/16/22-1236 SP TYPE: Pap Smr [facility] DR: ORDERED: Pap Smear Interpretation Satisfactory for evaluation. Negative for intraepithelial lesion or malignancy. Clinical Information LMP: 10/10/22 Previous PAP test: Unknown Material Received ThinPrep-Cervical ----- ------- Signed (signature on file) Brit Rob 11/04/22 1315 ----- ------- END OF REPORT [facility] External Provider LAB CYT OLSHIRLEY ORDERABLES Final Result [facility] [address] [place] [phone] from Last 3 Months or Most Recently Relevant to Health Maintenance Insurance [employer] [facility] Care Teams Substation Electrician Relationship Specialty Start Date End Date Lorena Rendon MD [address] [place] [phone] PCP - General Internal Medicine 10/25/22
--- OUTSIDE RECORDS SUMMARY | 2025-02-15 08:56 | XMS_ITS | Encounter Summary ---
Author Organization [employer] Address [address] [facility] [address] [place] [address] Care Team Providers Care Coat Repair Inspector Name Role Phone Juanita Ji ARNAV Primary Care Provider [phone] Lorena Rendon MD Primary Care Pro vider Reason for Visit * Reason Comments Med Change Request Encounter Details Date Type Department Care Team (Late st Contact Info) Description 08/19/2022 Refill [facility] [address] [place] [address] Crow Bernal FNP Acute rhinosinusitis Social History [...] Description 04/07/2025 9:30 AM EST Office Visit [facility] [address] [place] [phone] Lorena Rendon MD [address] [place] [phone] documented as of this encounter Visit Diagnoses Diagnosis Acute rhinosinusitis documented in this encounter Care Teams Coat Repair Inspector Relationship Specialty Start Date End Date Juanita Ji FNP [address] [place] [phone] PCP - General Family Medicine 01/15/22 10/24/22 Lorena Rendon MD [address] [place] [phone] PCP - General Internal Medicine 10/25/22 documented as of this encounter
--- OUTSIDE RECORDS SUMMARY | 2025-02-15 08:56 | XMS_ITS | Encounter Summary ---
Author Organization [employer] Address [address] [facility] [address] [place] [address] Care Team Providers Care Fire Alarm Technician Name Role Phone Lorena Rendon MD Primary Care Pro vider Reason for Visit * Reason Onset Date Comments Med Refill 02/11/2025 Encounter Details Date Type Department Care Team ([facility] st Contact Info) Description 02/11/2025 Refill [facility] [address] [place] [address] Lorena Rendon MD [address] [place] [address] Obesity due to excess calories without serious comorbidity, unspecified class Social History Tobacco Use Types Packs/Day Years [...] Telephone Encounter - Lorena Tijerina MD - 02/11/2025 11:45 AM EDT 7.5 mg dose sent today * Telephone Encounter - Carri Killian LPN - 02/11/2025 11:28 AM EDT Last seen 8.25.25 * Telephone Encounter - Galo Willoughby - 02/11/2025 11:26 AM EDT TC from pt requesting medication refill. Medications needing refill : Tirzepatide-Weight Management (Zepbound) 5 MG/0.5ML solution auto-injector To be sent to: [facility] [place], [place] - [address] documented in this encounter Plan of Treatment Upcoming Encounters Date Type Department Care Team (Late st Contact Info) Description 04/07/2025 9:30 AM EST Office Visit [facility] [address] [place] [address] Lorena Rendon MD [address] [place] [address] documented as of this encounter Visit Diagnoses Diagnosis Obesity due to excess calories without serious comorbidity, unspecified class documented in this encounter Additional Health Concerns Assessment Noted Time PHQ-9 Depression Total Score: 0 01/11/20 25 2:27 PM EDT documented as of this encounter Care Teams Fire Alarm Technician Relationship Specialty Start Date End Date Lorena Rendon MD [address] [place] [address] PCP - General Internal Medicine 10/25/22 documented as of this encounter
--- OUTSIDE RECORDS SUMMARY | 2025-02-15 08:56 | XMS_ITS | Encounter Summary ---
Author Organization [employer] Address [address] [facility] 7t [place] [address] Care Team Providers Care Pmo Lead Name Role Phone Lorena Rendon MD Primary Care Pro vider Reason for Visit * Reason Comments Med Refill Encounter Details Date Type Department Care Team ([facility] Contact Info) Description 09/27/2024 Refill [facility] [address] [place] [address] Lorena Rendon MD [address] [place] [address] Social History Tobacco Use Types Packs/Day Years [...] Office Visit [facility] [address] [place] [address] [phone] Lorena Rendon MD [address] [place] [phone] documented as of this encounter Visit Diagnoses Not on filedocumented in this encounter Additional Health Concerns Assessment Noted Time PHQ-9 Depression Total Score: 0 10/16/19 24 10:59 AM EDT documented as of this encounter Care Teams Pmo Lead Relationship Specialty Start Date End Date Lorena Rendon MD [address] [place] [phone] PCP - General Internal Medicine 10/25/22 documented as of this encounter
--- OUTSIDE RECORDS SUMMARY | 2025-02-15 08:56 | XMS_ITS | Encounter Summary ---
Author Organization [employer] Address [address] [facility] 7t [place] [address] Care Team Providers Care Aboriginal Liaison Officer Name Role Phone Lorena Rendon MD Primary Care Pro vider Encounter Details Date Type Department Care Team (Late st Contact Info) Description 02/11/2025 Orders Only [facility] [address] [place] [address] Lorena Rendon MD [address] [place] [address] Obesity, unspecified class, unspecified obesity type, unspecified whether serious comorbidity present (Primary Dx) Social History Tobacco Use Types Packs/Day Years [...] Description 04/07/2025 9:30 AM EST Office Visit [facility] [address] [place] [phone] Lorena Rendon MD [address] [place] [address] documented as of this encounter Visit Diagnoses Diagnosis Obesity, unspecified class, unspecified obesity type, unspecified whether serious comorbidity present- Primary documented in this encounter Additional Health Concerns Assessment Noted Time PHQ-9 Depression Total Score: 0 01/11/20 25 2:27 PM EDT documented as of this encounter Care Teams Aboriginal Liaison Officer Relationship Specialty Start Date End Date Lorena Rendon MD [address] [place] [address] PCP - General Internal Medicine 10/25/22 documented as of this encounter
--- OUTSIDE RECORDS SUMMARY | 2025-02-15 08:56 | XMS_ITS | Encounter Summary ---
Author Organization [employer] Address [address] [facility] 7t [place] [address] Care Team Providers Care Director Of Early Childhood Education Name Role Phone Lorena Rendon MD Primary Care Pro vider Reason for Visit * Reason Comments Med Refill Encounter Details Date Type Department Care Team ([facility] st Contact Info) Description 07/22/2024 Refill [facility] [address] [place] [address] Lorena Rendon MD [address] [place] [address] Social History Tobacco Use Types Packs/Day Years [...] 9:30 AM EST Office Visit [facility] [address] [place] [phone] Lorena Rendon MD [address] [place] [phone] documented as of this encounter Visit Diagnoses Not on filedocumented in this encounter Additional Health Concerns Assessment Noted Time PHQ-9 Depression Total Score: 0 10/16/19 24 10:59 AM EDT documented as of this encounter Care Teams Director Of Early Childhood Education Relationship Specialty Start Date End Date Lorena Rendon MD [address] [place] [address] [phone] PCP - General Internal Medicine 10/25/22 documented as of this encounter
--- OUTSIDE RECORDS SUMMARY | 2025-02-15 08:56 | XMS_ITS | Encounter Summary ---
Author Organization [employer] [facility] Address [address] [place] [address] Care Team Providers Care Precision Lens Generator Name Role Phone Lorena Rendon MD Primary Care Pro vider Reason for Visit * Reason Comments Med Refill Encounter Details Date Type Department Care Team ([facility] Contact Info) Description 02/09/2023 Refill [facility] [address] [place] [address] [phone] Lorena Rendon MD [address] [place] [address] [phone] Iron deficiency anemia, unspecified iron deficiency anemia [...] Upcoming Encounters Date Type Department Care Team ([facility] Contact Info) Description 04/07/2025 9:30 AM EST Office Visit [facility] [address] [place] [address] [phone] Lorena Rendon MD [address] [place] [address] [place] [address] documented as of this encounter Visit Diagnoses Diagnosis Iron deficiency anemia, unspecified iron deficiency anemia type documented in this encounter Additional Health Concerns Assessment Noted Time PHQ-9 Depression Total Score: 0 12/18/19 10:33 AM EDT documented as of this encounter Care Teams Precision Lens Generator Relationship Specialty Start Date End Date Lorena Rendon MD [address] [place] [address] PCP - General Internal Medicine 10/25/22 documented as of this encounter
== END 2025-02-15 09:16 | disposition home or self-care (01) ==
LOC: HO.HWS 08:34
PROVIDERS: PCP Student in an Organized Health Care Education/Training Program; Visit Provider Obstetrics & Gynecology
DX: N70.11 Chronic salpingitis (principal)
CPT/HCPCS: 99213